=== PATIENT | female | born 1940 | race Caucasian/White ===

== ENCOUNTER 2017-05-26 20:39 | Outpatient (CLI) | payer MEDICARE, OTHER | END 2017-05-26 20:40 | disposition critical access hospital (66) | LOC: EMS 20:39 | PROVIDERS: ATTEND Surgery | DX: M25.551 Pain in right hip (principal); W18.30XA Fall on same level, unspecified, initial encounter; Y93.01 Activity, walking, marching and hiking; Y92.009 Unspecified place in unspecified non-institutional (private) residence as the place of occurrence of the external cause | CPT/HCPCS: A0425; A0429 ==

== ENCOUNTER 2017-05-26 20:45 | Inpatient (IN) | payer MEDICARE, OTHER ==
[2017-05-26 21:49] LABS: BASOPHILS % (AUTO) 0.4 %; EOSINOPHILS # (AUTO) 0.1 10^3/uL (0.0-0.7); EOSINOPHILS % (AUTO) 0.7 %; HCT - HEMATOCRIT 41.6 % (37.0-47.0); HGB - HEMOGLOBIN 13.1 g/dL (12.0-16.0); LYMPHOCYTES # (AUTO) 1.2 10^3/uL (1.5-3.5); MEAN CORPUSCULAR HGB CONC 31.5 g/dL (32.0-36.0); MEAN CORPUSCULAR VOLUME 88.9 fL (81.0-99.0); MEAN PLATELET VOLUME 7.7 fL (7.9-10.8); MONOCYTES # (AUTO) 0.7 10^3/uL (0.0-1.0); MONOCYTES % (AUTO) 6.3 %; NEUTROPHILS # (AUTO) 9.2 10^3/uL (1.5-6.6); NEUTROPHILS % (AUTO) 81.6 %; RED BLOOD COUNT 4.68 10^6/uL (4.20-5.40); UNCORRECTED WHITE BLOOD COUNT 11.3 x10^3/uL; WHITE BLOOD COUNT 11.3 x10^3/uL (4.8-10.8)
[2017-05-26 21:58] LABS: ALBUMIN/GLOBULIN RATIO 1.5 (1.0-2.2); BILIRUBIN,TOTAL 0.4 mg/dL (0.2-1.0); CALCIUM 9.7 mg/dL (8.5-10.3); CREATININE 0.9 mg/dL (0.4-1.0); POTASSIUM 3.7 mmol/L (3.5-5.0); TOTAL PROTEIN 6.7 g/dL (6.7-8.2)
--- NOTE | 2017-05-26 22:40 | XRAY Preliminary Report ---
Exam: XR Chest 2 View PA/LAT IMPRESSION: Probable chronic interstitial lung disease. No acute pulmonary process. [facility] SITE ID: [id number]
--- NOTE | 2017-05-26 22:45 | XRAY Preliminary Report ---
Exam: XR Hip w/Pelvis 2-3V RT IMPRESSION: 1. Acute subcapital right femoral neck fracture. 2. No dislocation. [facility] SITE ID: [id number]
--- NOTE | 2017-05-26 22:54 | XRAY Report ---
EXAM: CHEST RADIOGRAPHY EXAM DATE: 05/26/2017 10:26 PM. CLINICAL HISTORY: Hypoxia. COMPARISON: 05/31/2015. TECHNIQUE: 2 views. FINDINGS: Lungs/Pleura: Coarse interstitial prominence is noted in both lungs. No consolidation, effusions or p neumothorax. Bronchial wall thickening is present. Mediastinum: Atheromatous plaques are present in the ectatic thoracic aorta. Stable cardiac silhouett e. Other: Multiple chronic healed right-sided rib fractures. IMPRESSION: Probable chronic interstitial lung disease. No acute pulmonary process. [facility] Referring Provider Line: [phone] SITE ID: [id number]
--- NOTE | 2017-05-26 22:54 | XRAY Report ---
EXAM: RIGHT HIP AND PELVIS RADIOGRAPHY EXAM DATE: 05/26/2017 10:26 PM. HISTORY: Fall, right hip pain. COMPARISONS: None. TECHNIQUE: 1 view of the pelvis and 1 view of the hip. FINDINGS: Bones: Acute, mildly displaced subcapital right femoral neck fracture. Patient is osteopenic. Status post vertebral augmentation at L4. Joints: The bilateral hip, pubis symphysis, and sacroiliac joints are preserved. Soft Tissues: Normal. No soft tissue swelling. IMPRESSION: 1. Acute subcapital right femoral neck fracture. 2. No dislocation. [facility] Referring Provider Line: [phone] SITE ID: [id number]
[2017-05-26] MEDS ORDERED: fentaNYL 100 MCG/2 ML VIAL IVP STA (23:15)
[2017-05-26] MEDS ORDERED: fentaNYL 100 MCG/2 ML VIAL ONE (23:18)
--- NOTE | 2017-05-26 23:35 | ED Physician Documentation ---
PD HPI LOWER EXT INJURY - Stated complaint Stated Complaint: FALL/R HIP PAIN - Chief complaint Chief Complaint: Ext Problem - History obtained from History obtained from: Patient, EMS - History of Present Illness PD HPI LOW EXT INJURY LOCATION: Right, Upper leg Type of injury: Fall Where injury occurred: Home Timing - onset: How many hours ago (1) Timing - details: Abrupt onset Improved by: Immobilization Worsened by: Moving, Palpating Contributing factors: Prior ortho surgery Similar symptoms before: Has not had sx before Recently seen: Not recently seen - Additional information Additional information: Patient is a 76 year old female with a history of osteoporosis and suspected alcohol abuse who is presenting to the emergency department for right hip pain. Patient states that she came downstairs to picker her meals on wheels. Patient states that she proceeded to fall but did not trip on anything. patient states that she was down for possibly a half hour before being called by the neighbors. Patient complained of right sided hip pain but denied any other complaints. Review of Systems Constitutional: denies: Fever, Chills Eyes: denies: Decreased vision Ears: denies: Ear pain, Drainage/discharge Nose: denies: Rhinorrhea / runny nose, Congestion Throat: denies: Sore throat Cardiac: denies: Chest pain / pressure, Palpitations Respiratory: denies: Dyspnea, Cough, Wheezing GI: denies: Abdominal Pain, Nausea, Vomiting : denies: Dysuria, Frequency Skin: denies: Rash, Lesions, Abrasion (s), Laceration (s) Musculoskeletal: reports: Extremity pain, Joint pain Neurologic: reports: Generalized weakness, Confused. denies: Focal weakness, Syncope, Seizure, Head injury, LOC Immunocompromised: denies: Immunocompromised PD PAST MEDICAL HISTORY - Past Medical History Cardiovascular: None Respiratory: Shortness of breath Endocrine/Autoimmune: HyPOthyroidism GI: Hiatal hernia, Colon polyps : Incontinence, Frequency HEENT: Other Psych: Depression Musculoskeletal: Osteoarthritis, Fibromyalgia, Fatigue Derm: None - Past Surgical History General: Colonoscopy, EGD Ortho: Spine surgery HEENT: Tonsil/Adenoidectomy - Present Medications Home Medications: Ambulatory Orders Medication Instructions Recorded Confirmed Omeprazole [Prilosec] 20 mg PO BID 04/01/13 05/27/17 Thyroid [[place] Thyroid] 130 mg PO DAILY 04/01/13 05/27/17 Venlafaxine ER [Effexor ER] 75 mg PO BID 05/30/15 05/26/17 - Allergies Allergies/Adverse Reactions: Allergies Allergy/AdvReac Type Severity Reaction Status Date / Time Penicillins Allergy Unknown Unknown Verified 05/26/17 21:12 - Social History Does the pt smoke?: No Smoking Status: Never smoker Does the pt drink ETOH?: Yes Does the pt have substance abuse?: No - POLST Patient has POLST: No PD ED PE NORMAL - Vitals Vital signs reviewed: Yes - General General: Alert and oriented X 3 - HEENT HEENT: Atraumatic, PERRL - Neck Neck: Supple, no meningeal sign, No bony TTP - Cardiac Cardiac: RRR, No murmur - Respiratory Respiratory: No respiratory distress - Abdomen Abdomen: Soft, Non tender, Non distended - Derm Derm: Normal color, Warm and dry - Neuro Neuro: Alert and oriented X 3, Normal speech - Psych Psych: Normal mood, Normal affect PD ED PE EXPANDED - Extremities Extremities: Right wrist (scarring of right wrist), Right hip (tenderness and swelling of right hip) Results - Vitals Vitals: Vital Signs - 24 hr 05/26/17 05/26/17 05/27/17 22:47 23:20 00:03 Heart Rate 100 96 101 H Respiratory 17 18 17 Rate Blood Pressure 137/67 H 141/74 H 167/74 H O2 Saturation 96 95 95 Oxygen O2 Source Nasal cannula Oxygen Flow Rate 4 - Labs Labs: Laboratory Tests 05/26/17 05/26/17 05/26/17 21:30 21:30 21:30 WBC 11.3 H RBC 4.68 Hgb 13.1 Hct 41.6 MCV 88.9 MCH 28.0 MCHC 31.5 L RDW 17.0 H Plt Count 236 MPV 7.7 L Neut # 9.2 H Lymph # 1.2 L [place] # 0.7 Eos # 0.1 Baso # 0.0 Absolute Nucleated RBC 0.00 Nucleated RBCs 0.0 Sodium 137 Potassium 3.7 Chloride 104 Carbon Dioxide 19 L Anion Gap 14.0 H BUN 15 Creatinine 0.9 Estimated GFR (MDRD) 61 L Glucose 101 H Calcium 9.7 Total Bilirubin 0.4 AST 23 ALT 16 Alkaline Phosphatase 95 Troponin I < 0.04 B-Natriuretic Peptide Total Protein 6.7 Albumin 4.0 Globulin 2.7 Albumin/Globulin Ratio 1.5 Lipase 19 L Urine Color Urine Clarity Urine pH Ur Specific [place] Urine Protein Urine Glucose (UA) Urine Ketones Urine Occult Blood Urine Nitrite Urine Bilirubin Urine Urobilinogen Ur Leukocyte Esterase Urine RBC Urine WBC Ur Squamous Epith Cells Urine Bacteria Ur Microscopic Review Urine Culture Comments 05/26/17 05/26/17 21:30 23:39 WBC RBC Hgb Hct MCV MCH MCHC RDW Plt Count MPV Neut # Lymph # [place] # Eos # Baso # Absolute Nucleated RBC Nucleated RBCs Sodium Potassium Chloride Carbon Dioxide Anion Gap BUN Creatinine Estimated GFR (MDRD) Glucose Calcium Total Bilirubin AST ALT Alkaline Phosphatase Troponin I B-Natriuretic Peptide 22 Total Protein Albumin Globulin Albumin/Globulin Ratio Lipase Urine Color YELLOW Urine Clarity CLEAR Urine pH 5.5 Ur Specific [place] 1.010 Urine Protein NEGATIVE Urine Glucose (UA) NEGATIVE Urine Ketones NEGATIVE Urine Occult Blood NEGATIVE Urine Nitrite POSITIVE H Urine Bilirubin NEGATIVE Urine Urobilinogen 0.2 (NORMAL) Ur Leukocyte Esterase SMALL H Urine RBC 6-10 H Urine WBC >25 H Ur Squamous Epith Cells RARE Squamous Urine Bacteria Moderate H Ur Microscopic Review INDICATED Urine Culture Comments INDICATED - Rads (name of study) right hip Radiology: Final report received (femurel head fracture) PD MEDICAL DECISION MAKING - ED course Complexity details: reviewed old records, reviewed results, re-evaluated patient , considered differential, d/w patient, d/w event management consultant ED course: Patient was seen and examined at bedside. ekg was performed and showed sinus tach. labs were drawn and imaging was ordered. Patient was kept on supplemental oxygen due to her hypoxia. Patient's imaging was consistent with right hip fracture. Patient was treated with fentanyl and Dr. Barragan, covering orthopedist was contacted. He stated he would consult on the patient. Hospitalist was contacted and the case was discussed with him. Patient was admitted for further evaluation and care. Departure - Departure Disposition: [facility] DC/Xfer Clinical Impression: Hip fracture, right Condition: Stable
[2017-05-26] MEDS ORDERED: ONDANSETRON 4 MG/2 ML VIAL IVP PRN (23:40)
[2017-05-26] MEDS ORDERED: PROCHLORPERAZINE 10 MG/2 ML VIAL IVP PRN (23:40)
[2017-05-26] MEDS ORDERED: ZOLPIDEM 5 MG TABLET PO PRN (23:40)
[2017-05-26] MEDS ORDERED: HYDROcod/ACETAM 5/325 MG TABLET PO PRN (23:40)
[2017-05-26] MEDS ORDERED: ACETAMINOPHEN 325 MG TABLET PO PRN (23:40)
[2017-05-26] MEDS ORDERED: VENLAFAXINE ER 75 MG CAPSULE PO SCH (23:45)
[2017-05-26 23:51] LABS: BILIRUBIN,URINE NEGATIVE (NEGATIVE); PH,URINE 5.5 PH (5.0-7.5)
[2017-05-26 23:54] LABS: UA w/ MICROSCOPIC CHARGE YES
[2017-05-26 23:57] LABS: UR CULTURE IF IND INDICATED; WBC,URINE >25 /HPF (0-5)
[2017-05-27] MEDS ORDERED: ONDANSETRON 4 MG/2 ML VIAL IVP STA (00:08)
[2017-05-27] MEDS ORDERED: PANTOPRAZOLE 40 MG VIAL IVP STA (00:09)
[2017-05-27] MEDS ORDERED: LORazepam 2 MG/ML SYRINGE IVP PRN (01:53)
[2017-05-27] MEDS ORDERED: MAGNESIUM SULFATE 2 GRAM 50 ML IV ONE ×2 (01:53→03:44)
[2017-05-27] MEDS: SODIUM CHLORIDE 0.9% 1,000 ML IV SCH ×3 (01:58→21:41)
[2017-05-27] MEDS: SODIUM CHLORIDE FLUSH 0.9% 10 ML SYRINGE IVP PRN ×7 (01:59→21:41)
[2017-05-27] MEDS: MORPHINE 2 MG/ML SYRINGE IVP PRN ×4 (02:05→17:01)
[2017-05-27 02:35] LABS: BASOPHILS % (AUTO) 0.3 %; EOSINOPHILS % (AUTO) 0.4 %; HCT - HEMATOCRIT 41.3 % (37.0-47.0); HGB - HEMOGLOBIN 13.3 g/dL (12.0-16.0); LYMPHOCYTES # (AUTO) 0.8 10^3/uL (1.5-3.5); LYMPHOCYTES % (AUTO) 8.3 %; MEAN CORPUSCULAR HEMOGLOBIN 28.5 pg (27.0-31.0); MEAN CORPUSCULAR HGB CONC 32.3 g/dL (32.0-36.0); MEAN CORPUSCULAR VOLUME 88.3 fL (81.0-99.0); MEAN PLATELET VOLUME 7.6 fL (7.9-10.8); MONOCYTES # (AUTO) 0.7 10^3/uL (0.0-1.0); MONOCYTES % (AUTO) 7.4 %; NEUTROPHILS # (AUTO) 8.4 10^3/uL (1.5-6.6); NEUTROPHILS % (AUTO) 83.6 %; RED BLOOD COUNT 4.67 10^6/uL (4.20-5.40)
[2017-05-27 02:39] LABS: PT - PROTHROMBIN TIME 11.5 secs (9.9-12.6)
[2017-05-27 02:45] LABS: ALBUMIN/GLOBULIN RATIO 1.3 (1.0-2.2); BILIRUBIN,TOTAL 0.4 mg/dL (0.2-1.0); CALCIUM 9.2 mg/dL (8.5-10.3); CREATININE 0.7 mg/dL (0.4-1.0); MAGNESIUM 1.6 mg/dL (1.7-2.8); PHOSPHORUS 4.3 mg/dL (2.5-4.6); TOTAL PROTEIN 6.8 g/dL (6.7-8.2)
[2017-05-27] MEDS: HYDROcod/ACETAM 10 MG/325 MG TABLET PO PRN ×2 (02:47→12:42)
[2017-05-27] MEDS: VENLAFAXINE ER 75 MG CAPSULE PO SCH ×3 (02:48→21:04)
[2017-05-27] MEDS: cefTRIAXone 2 GM in SODIUM CHLORIDE 0.9% MINIBAG 100 ML IV SCH (03:55)
--- NOTE | 2017-05-27 05:11 | HISTORY & PHYSICAL EXAMINATION ---
Chief Complaint - Chief Complaint Chief Complaint: Right hip pain History of Present Illness - Admitted From Admitted From:: Emergency Department - History Obtained From Records Reviewed: Yes History obtained from: Patient Exam Limitations: Unable to move right leg secondary to pain - History of Present Illness HPI Comment/Other: Patient is a 76 year old female with a past medical history of alcohol abuse, chronic respiratory failure with hypoxia on 2L of home O2 but non compliant likely due to COPD, GERD, hypothyroidism, chronic fatigue syndrome, insomnia and IBS who presented to the ED with complaint of right hip pain after a fall. Patients states she lives alone in an apartment and was going down the stairs when she states she lost her balance and fell with all her weight onto her right side. She states she did not lose consciousness. She states she has poor balance and has fallen before. She has a cane at home but does not use it. She drinks daily had consumed some alcohol before her fall today. She states that after falling she could not get up and was in excruciating pain. She does state that she felt weak today but denies any fevers or chills. She denies any new cough or shortness of breath. She denies any chest pain. She denies any urinary symptoms. She does state she is nauseated in the ED and did vomit. She denies any abdominal pain. On presentation to the ED the patient was in obvious pain, she was tachycardic and hypertensive and her right leg was externally rotated and shortened. X ray of her right hip showed an acute subcapital right femoral next fracture. Orthopedics was called and they asked that the Hospitalist team admit the patient and that they would see her in consult in the morning. Review of Systems - Other Findings Other Findings: A comprehensive review of systems was performed and the pertinent positives and negatives are stated above in the HPI the remainder of the review of systems was negative. History - Past Medical History Cardiovascular: reports: None Respiratory: reports: Shortness of breath Endocrine/Autoimmune: reports: HyPOthyroidism GI: reports: Hiatal hernia, Colon polyps : reports: Incontinence, Frequency HEENT: reports: Other Psych: reports: Depression Musculoskeletal: reports: Osteoarthritis, Fibromyalgia, Fatigue Derm: reports: None MRSA Hx?: No Other Past Medical History: 1. GERD. 2. Hypothyroidism. 3. Alcohol Abuse. 4. COPD on 2L of home O2. 5. IBS. 6. Chronic Fatigue Syndrome - Past Surgical History General: reports: Colonoscopy, EGD Ortho: reports: Spine surgery HEENT: reports: Tonsil/Adenoidectomy - Family & Social History Family History: Mother: Alive and Well (Mom is 98 years old ), Father: (Dad: Lung cancer) Living arrangement: At home Living Situation: Alone Social History Notes: Patient lives alone in an apartment in [place]. Her daughter lives nearby but works in [place]. She is from [place] and moved here in 2004. She drinks daily and states she drinks about 1.5 L of Vodka in less than a week. She has 3 kids. She quit smoking in 1991 but smoked for about 30 years and smoked up to a pack per day. She denies any illict drug use. - Substance History Use: Uses substance without health or social issues: NONE Abuse: Recurrent use of substance despite neg consequences: NONE Dependence: Experiences withdrawal or developed tolerances: NONE - POLST Patient has POLST: No POLST Status: Full Code Meds/Allgy - Home Medications Home Medications: Ambulatory Orders Medication Instructions Recorded Confirmed Omeprazole [Prilosec] 20 mg PO BID 04/01/13 05/27/17 Thyroid [[place] Thyroid] 130 mg PO DAILY 04/01/13 05/27/17 Venlafaxine ER [Effexor ER] 75 mg PO BID 05/30/15 05/26/17 - Allergies Allergies/Adverse Reactions: Allergies Allergy/AdvReac Type Severity Reaction Status Date / Time Penicillins Allergy Unknown Unknown Verified 05/26/17 21:12 Exam - Vital Signs Reviewed Vital Signs: Yes Vital Signs: Vital Signs x48h Temp Pulse Pulse Resp BP BP Pulse Ox 05/27/17 01:55 37.1 C 107 H 20 146/72 H 93 05/27/17 00:03 101 H 17 167/74 H 95 - Physical Exam General Appearance: positive: Alert, Moderate distress (Pain the left hip), Other (Smells of alcohol) Eyes Bilateral: positive: Normal inspection, PERRL, EOMI, No lid inflammation, Conjunctivae nml, No scleral icterus ENT: positive: ENT inspection nml, Pharynx nml, Dry mucous membranes. negative : Purulent nasal drainage, Pharyngeal erythema, Oral lesions Neck: positive: Nml inspection, Thyroid nml, No JVD, Trachea midline. negative : Thyromegaly, Lymphadenopathy (R), Lymphadenopathy (L), Tracheal deviation Respiratory: positive: Chest non-tender, No respiratory distress, Other ( Diminished breath sounds bilaterally). negative: Wheezes, Rales, Rhonchi Cardiovascular: positive: No murmur, No gallop, Tachycardia Peripheral Pulses: positive: 2+ Abdomen: positive: Non-tender, No organomegaly, Nml bowel sounds, No distention. negative: Guarding, Rebound, Hepatomegaly Back: positive: Nml inspection. negative: CVA tenderness (R), CVA tenderness (L ) Skin: positive: Color nml, No rash, Warm, Dry. negative: Cyanosis, Pallor Extremities: positive: No pedal edema, Other (Right lower extremity externally rotated and shortened, with very limited ROM secondary to pain) Neurologic/Psychiatric: positive: Oriented x3, CN's nml (2-12), Motor nml, Sensation nml, Mood/affect nml Conclusion/Plan - Problem List (1) Subcapital fracture of right femur Conclusion/Plan: Secondary to fall likely due to poor balance and history of alcohol abuse Severe pain and decreased range of motion Xray shows subcapital right femoral neck fx RCRI calculator gives patient a 0.4% risk of major cardiac event during surgery She has no active chest pain or shortness of breath She does have COPD and is suppose to be on 2L of O2 will need have her optimized prior to surgery from respiratory standpoint with O2 and nebs. CXR is clear. Plan: Consult Ortho NPO after MN for right hip repair IVFs IV pain meds for pain control PT consult Start DVT prophylaxis post procedure (2) UTI (urinary tract infection) Conclusion/Plan: Patient had generalized weakness and mild leukocytosis but no fever or urinary symptoms UA positive for UTI this may have contributed to the fall Plan: IV ceftriaxone Await urine cx (3) Alcohol abuse Conclusion/Plan: Patient drinks daily according to her 1.5L of vodka a week but daughter thinks it maybe more She smelled of EtOH on presentation and did have a positive alcohol level on presentation Plan: counselled on risks of drinking and need to quit Place on IV MV, Folate, Thiamine and Mg CIWA protocol (4) GERD (gastroesophageal reflux disease) Conclusion/Plan: Patient has severe GERD and likely gastritis as she drinks and uses NSAIDs Does have abdominal pain and nausea when she does not take PPI Place on PPI while hospitalized Avoid NSAIDs (5) COPD (chronic obstructive pulmonary disease) Conclusion/Plan: Seems to be stable with no wheezing or cough CXR negative Suppose to be on 2L of O2 at home but has not been using Hypoxic on presentation Plan: Place on duonebs and optimize pre op status Will need to be extubated onto O2 post op Will need PFTs as outpatient (6) Prophylactic use of low molecular weight heparin for venous thromboembolism Conclusion/Plan: Place on Foot pumps until post op then switch to lovenox - Lab Results Lab results reviewed: Yes Fish Bones: 05/27/17 02:25 05/27/17 02:25 - Diagnostic Imaging Results Diagnostic Imaging Results: positive: Final report reviewed Diagnostic Imaging Results Comments: Hip Xray Right femoral neck hip fx CXR Chronic interstitial lung disease with no acute process. - EKG Results EKG Interpreted Independently: Yes Issues/Core Measures - Anticipated LOS Anticipated Stay Length: 2 or more midnights - DVT/VTE - Prophylaxis VTE/DVT Device ordered at admit?: Yes VTE/DVT Prophylaxis med ordered at admit?: Yes
[2017-05-27] MEDS: SODIUM CHLORIDE FLUSH 0.9% 10 ML SYRINGE IVP SCH ×3 (05:33→17:04)
[2017-05-27] MEDS: PANTOPRAZOLE 40 MG TABLET PO SCH (06:21)
--- NOTE | 2017-05-27 08:57 | PROVIDER PROGRESS NOTE ---
Assessment/Plan - Problem List (1) Subcapital fracture of right femur Assessment/Plan: acute. continue with ortho on consult for surgery in the morning. continue on NPO at midnight. will need rehab after surgery. continue to monitor for pain with fentanyl IV and tylenol for mild pain. zofran for nausea. Hubbard traction 8 pounds applied. pillow for support. (2) Alcohol dependence with physiological dependence, continuous Assessment/Plan: acute on chronic. continue on banana bag IV and monitor electrolytes daily with labs. continue on CIWA protocol with ativan as needed for withdrawal. (3) UTI (urinary tract infection) Qualifiers: Urinary tract infection type: site unspecified Hematuria presence: without hematuria Qualified Code(s): N39.0 - Urinary tract infection, site not specified Assessment/Plan: acute. continue on Rocephin IV and IVF for gentle hydration. urine culture pending for bacterial organism (4) COPD (chronic obstructive pulmonary disease) Qualifiers: COPD type: unspecified COPD Qualified Code(s): J44.9 - Chronic obstructive pulmonary disease, unspecified Assessment/Plan: STABLE AND chronic. continue on supplemental oxygen with RT support. continue at night since patient has possible sleep apnea (5) GERD (gastroesophageal reflux disease) Qualifiers: Esophagitis presence: without esophagitis Qualified Code(s): K21.9 - Gastro -esophageal reflux disease without esophagitis Assessment/Plan: chronic without esophagitis. continue on PPI - Current Meds Current Meds: Current Medications Generic Name Dose Route Start Last Admin Trade Name Freq PRN Reason Stop Dose Admin Acetaminophen/Hydrocodone Bitart 1 tab 05/26/17 23:40 05/27/17 02:47 [place] 10 Mg/325 Mg PO 1 tab Q4HR PRN Administration Pain 8 to 10 Sodium Chloride 1,000 mls @ 100 mls/hr 05/26/17 23:45 05/27/17 01:58 Normal Saline 0.9% IV 100 mls/hr .Q10H RAJEEV Administration Ceftriaxone Sodium 2 gm/ 100 mls @ 200 mls/hr 05/27/17 03:00 05/27/17 03:55 Sodium Chloride IV 200 mls/hr Q24H RAJEEV Administration Morphine Sulfate 2 mg 05/26/17 23:40 05/27/17 03:55 Morphine IVP 2 mg Q2HR PRN Administration Pain 8 to 10 Pantoprazole Sodium 40 mg 07/26/17 07:00 05/27/17 06:21 Protonix PO 40 mg QDAC RAJEEV Administration Sodium Chloride 10 ml 05/26/17 23:40 05/27/17 01:59 Normal Saline Flush 0.9% IVP 10 ml PRN PRN Administration NEEDED PER PROVIDER ORDERS Sodium Chloride 10 ml 05/27/17 06:00 05/27/17 05:33 Normal Saline Flush 0.9% IVP Not Given Q8HR RAJEEV Venlafaxine HCl 75 mg 05/27/17 03:00 05/27/17 02:48 Effexor Er PO 75 mg BID RAJEEV Administration - Lab Result Lab results reviewed: Yes Fish Bone Diagrams: 05/27/17 02:25 05/27/17 02:25 Other Lab Results: Abnormal Lab Results 05/26/17 05/26/17 05/26/17 21:30 21:30 23:39 WBC 11.3 x10^3/uL H x10^3/uL (4.8-10.8) MCHC 31.5 g/dL L g/dL (32.0-36.0) RDW 17.0 % H % (12.0-15.0) MPV 7.7 fL L fL (7.9-10.8) Neut # 9.2 10^3/uL H 10^3/uL (1.5-6.6) Lymph # 1.2 10^3/uL L 10^3/uL (1.5-3.5) Carbon Dioxide 19 mmol/L L mmol/L (21-32) Anion Gap 14.0 H (6-13) Estimated GFR (MDRD) 61 L (>89) Glucose 101 mg/dL H mg/dL (70-100) Magnesium Lipase 19 U/L L U/L (22-51) Urine Nitrite POSITIVE H (NEGATIVE) Ur Leukocyte Esterase SMALL H (NEGATIVE) Urine RBC 6-10 /HPF H /HPF (0-5) Urine WBC >25 /HPF H /HPF (0-5) Urine Bacteria Moderate /HPF H /HPF (None Seen) 05/27/17 05/27/17 02:25 02:25 WBC MCHC RDW 17.0 % H % (12.0-15.0) MPV 7.6 fL L fL (7.9-10.8) Neut # 8.4 10^3/uL H 10^3/uL (1.5-6.6) Lymph # 0.8 10^3/uL L 10^3/uL (1.5-3.5) Carbon Dioxide 20 mmol/L L mmol/L (21-32) Anion Gap Estimated GFR (MDRD) 82 L (>89) Glucose 103 mg/dL H mg/dL (70-100) Magnesium 1.6 mg/dL L mg/dL (1.7-2.8) Lipase Urine Nitrite Ur Leukocyte Esterase Urine RBC Urine WBC Urine Bacteria - EKG Results EKG Interpreted Independently: Yes EKG Comparison: Unchanged from prior EKG - Additional Planning Condition/Complexity: Stable Consult/Specialty: OT, PT, Surgery Plan Discussed with:: Patient, Family (daughter Yin would like to be called before surgery and number on board in room) Time Spent: 31-60 minutes (patient is going to need more than 2 night stay due to co morbid conditions. she is high risk with needing iV medications with risk for toxicity. additional diagnostics ordered.) Subjective - Subjective Patient Reports: Resting Comfortably, Nausea (occasional pain and nausea when taking pain meds), Pain Nursing Reports: No Complaints (occasional pain to hip with pain control) Objective Vital Signs: Vital Signs - 24 hr 05/27/17 05/27/17 05/27/17 00:03 01:55 06:22 Temperature 37.1 C 36.7 C Heart Rate 101 H Heart Rate [ 107 H 92 Brachial] Respiratory 17 20 18 Rate Blood Pressure 167/74 H Blood Pressure 157/74 H [Left Brachial artery] Blood Pressure 146/72 H [Right Brachial artery] O2 Saturation 95 93 94 Oxygen O2 Source Nasal cannula I&O (Last 24 Hrs): Intake and Output Totals x24h 05/25/17 05/26/17 05/27/17 23:59 23:59 23:59 Intake Total 425 Output Total 350 Balance 75 General: Alert, Oriented x3, Cooperative, No acute distress HEENT: PERRLA, EOMI Neck: Supple, No JVD, No thyromegaly Lymphatic: no adenopathy Neuro: Alert, Oriented Times 3 Cardiovascular: Regular rate, Normal S1, Normal S2 Respiratory: Chest non-tender, No respiratory distress, Breath sounds nml Abdomen: Soft, No tenderness, No hepatospenomegaly, No masses Genitourinary: No Bleeding, No Discharge Rectal: Stool - Heme NEG Extremities: No clubbing, No cyanosis, Normal pulses, No tenderness/swelling Skin: No rashes, No breakdown, No significant lesion - Results Results: Laboratory Results WBC 10.0 x10^3/uL (4.8-10.8) 05/27/17 02:25 RBC 4.67 10^6/uL (4.20-5.40) 05/27/17 02:25 Hgb 13.3 g/dL (12.0-16.0) 05/27/17 02:25 Hct 41.3 % (37.0-47.0) 05/27/17 02:25 MCV 88.3 fL (81.0-99.0) 05/27/17 02:25 MCH 28.5 pg (27.0-31.0) 05/27/17 02:25 MCHC 32.3 g/dL (32.0-36.0) 05/27/17 02:25 RDW 17.0 % (12.0-15.0) H 05/27/17 02:25 Plt Count 208 10^3/uL (130-450) 05/27/17 02:25 MPV 7.6 fL (7.9-10.8) L 05/27/17 02:25 Neut # 8.4 10^3/uL (1.5-6.6) H 05/27/17 02:25 Lymph # 0.8 10^3/uL (1.5-3.5) L 05/27/17 02:25 [place] # 0.7 10^3/uL (0.0-1.0) 05/27/17 02:25 Eos # 0.0 10^3/uL (0.0-0.7) 05/27/17 02:25 Baso # 0.0 10^3/uL (0.0-0.1) 05/27/17 02:25 Absolute Nucleated RBC 0.00 x10^3/uL 05/27/17 02:25 Nucleated RBCs 0.0 /100WBC 05/27/17 02:25 PT 11.5 secs (9.9-12.6) 05/27/17 02:25 INR 1.0 (0.8-1.2) 05/27/17 02:25 Sodium 138 mmol/L (135-145) 05/27/17 02:25 Potassium 4.0 mmol/L (3.5-5.0) 05/27/17 02:25 Chloride 105 mmol/L (101-111) 05/27/17 02:25 Carbon Dioxide 20 mmol/L (21-32) L 05/27/17 02:25 Anion Gap 13.0 (6-13) 05/27/17 02:25 BUN 15 mg/dL (6-20) 05/27/17 02:25 Creatinine 0.7 mg/dL (0.4-1.0) 05/27/17 02:25 Estimated GFR (MDRD) 82 (>89) L 05/27/17 02:25 Glucose 103 mg/dL (70-100) H 05/27/17 02:25 Calcium 9.2 mg/dL (8.5-10.3) 05/27/17 02:25 Phosphorus 4.3 mg/dL (2.5-4.6) 05/27/17 02:25 Magnesium 1.6 mg/dL (1.7-2.8) L 05/27/17 02:25 Total Bilirubin 0.4 mg/dL (0.2-1.0) 05/27/17 02:25 AST 22 IU/L (10-42) 05/27/17 02:25 ALT 16 IU/L (10-60) 05/27/17 02:25 Alkaline Phosphatase 97 IU/L (42-121) 05/27/17 02:25 Troponin I < 0.04 ng/mL (<0.49) 05/26/17 21:30 B-Natriuretic Peptide 22 pg/mL (5-100) 05/26/17 21:30 Total Protein 6.8 g/dL (6.7-8.2) 05/27/17 02:25 Albumin 3.9 g/dL (3.2-5.5) 05/27/17 02:25 Globulin 2.9 g/dL (2.1-4.2) 05/27/17 02:25 Albumin/Globulin Ratio 1.3 (1.0-2.2) 05/27/17 02:25 Lipase 19 U/L (22-51) L 05/26/17 21:30 TSH 0.76 uIU/mL (0.34-5.60) 05/27/17 02:25 Urine Color YELLOW 05/26/17 23:39 Urine Clarity CLEAR (CLEAR) 05/26/17 23:39 Urine pH 5.5 PH (5.0-7.5) 05/26/17 23:39 Ur Specific [place] 1.010 (1.002-1.030) 05/26/17 23:39 Urine Protein NEGATIVE mg/dL (NEGATIVE) 05/26/17 23:39 Urine Glucose (UA) NEGATIVE mg/dL (NEGATIVE) 05/26/17 23:39 Urine Ketones NEGATIVE mg/dL (NEGATIVE) 05/26/17 23:39 Urine Occult Blood NEGATIVE (NEGATIVE) 05/26/17 23:39 Urine Nitrite POSITIVE (NEGATIVE) H 05/26/17 23:39 Urine Bilirubin NEGATIVE (NEGATIVE) 05/26/17 23:39 Urine Urobilinogen 0.2 (NORMAL) E.U./dL (NORMAL) 05/26/17 23:39 Ur Leukocyte Esterase SMALL (NEGATIVE) H 05/26/17 23:39 Urine RBC 6-10 /HPF (0-5) H 05/26/17 23:39 Urine WBC >25 /HPF (0-5) H 05/26/17 23:39 Ur Squamous Epith Cells RARE Squamous (<= Few) 05/26/17 23:39 Urine Bacteria Moderate /HPF (None Seen) H 05/26/17 23:39 Ur Microscopic Review INDICATED 05/26/17 23:39 Urine Culture Comments INDICATED 05/26/17 23:39 Ethyl Alcohol 68.9 mg/dL 05/27/17 02:25 - Procedures Procedures: Procedures OP RED-INT FIX RAD/ULNA (05/31/15)
[2017-05-27] MEDS ORDERED: THYROID 60 MG TABLET PO SCH (09:30)
[2017-05-27] MEDS ORDERED: diazePAM INJ 5 MG/ML SYRINGE IVP SCH ×2 (10:00→21:00)
[2017-05-27] MEDS: POLYETHYLENE GLYCOL 3350 17 GM PACKET PO SCH (10:15)
[2017-05-27] MEDS: MULTIVITAMIN 10 ML, THIAMINE INJ 100 MG, FOLIC ACID INJ 1 MG in SODIUM CHLORIDE 0.9% 1,... IV SCH (10:38)
[2017-05-27] MEDS: fentaNYL 100 MCG/2 ML VIAL IVP PRN ×2 (18:42→22:20)
[2017-05-28] MEDS: HYDROcod/ACETAM 10 MG/325 MG TABLET PO PRN ×2 (00:23→16:54)
[2017-05-28] MEDS: MORPHINE 2 MG/ML SYRINGE IVP PRN ×3 (02:48→23:57)
[2017-05-28] MEDS: cefTRIAXone 2 GM in SODIUM CHLORIDE 0.9% MINIBAG 100 ML IV SCH (02:48)
[2017-05-28] MEDS: SODIUM CHLORIDE FLUSH 0.9% 10 ML SYRINGE IVP SCH ×3 (05:59→19:29)
[2017-05-28] MEDS: LEVOTHYROXINE 25 MCG TABLET PO SCH (06:12)
[2017-05-28] MEDS: LEVOTHYROXINE 112 MCG TABLET PO SCH (06:12)
[2017-05-28] MEDS: PANTOPRAZOLE 40 MG TABLET PO SCH (06:12)
[2017-05-28 06:24] LABS: BASOPHILS % (AUTO) 0.5 %; EOSINOPHILS # (AUTO) 0.3 10^3/uL (0.0-0.7); EOSINOPHILS % (AUTO) 3.7 %; HGB - HEMOGLOBIN 11.6 g/dL (12.0-16.0); LYMPHOCYTES # (AUTO) 0.7 10^3/uL (1.5-3.5); LYMPHOCYTES % (AUTO) 9.7 %; MEAN CORPUSCULAR HEMOGLOBIN 28.8 pg (27.0-31.0); MEAN CORPUSCULAR HGB CONC 32.2 g/dL (32.0-36.0); MEAN CORPUSCULAR VOLUME 89.5 fL (81.0-99.0); MEAN PLATELET VOLUME 7.9 fL (7.9-10.8); MONOCYTES # (AUTO) 0.5 10^3/uL (0.0-1.0); MONOCYTES % (AUTO) 7.8 %; NEUTROPHILS # (AUTO) 5.5 10^3/uL (1.5-6.6); NEUTROPHILS % (AUTO) 78.3 %; RED BLOOD COUNT 4.03 10^6/uL (4.20-5.40); RED CELL DISTRIBUTION WIDTH 16.8 % (12.0-15.0)
[2017-05-28 06:29] LABS: ALBUMIN/GLOBULIN RATIO 1.4 (1.0-2.2); BILIRUBIN,TOTAL 0.6 mg/dL (0.2-1.0); CALCIUM 7.6 mg/dL (8.5-10.3); CREATININE 0.8 mg/dL (0.4-1.0); MAGNESIUM 1.8 mg/dL (1.7-2.8); PHOSPHORUS 2.5 mg/dL (2.5-4.6); POTASSIUM 4.4 mmol/L (3.5-5.0); TOTAL PROTEIN 5.9 g/dL (6.7-8.2)
[2017-05-28] MEDS ORDERED: ceFAZolin 1 GM VIAL IV ONE (08:00)
[2017-05-28] MEDS ORDERED: fentaNYL 100 MCG/2 ML VIAL IVP ONE (08:00)
[2017-05-28] MEDS ORDERED: PHENYLEPHRINE 10 MG/ML VIAL IV ONE (08:00)
[2017-05-28] MEDS ORDERED: PROPOFOL 200 MG/20 ML VIAL IVP ONE (08:00)
[2017-05-28] MEDS ORDERED: MIDAZOLAM 2 MG/2 ML VIAL IVP ONE (08:00)
[2017-05-28] MEDS: IPRATROPIUM/ALBUTEROL 3 ML NEB INH PRN ×3 (08:00→19:45)
[2017-05-28] MEDS ORDERED: TRANEXAMIC ACID 1,000 MG/10 ML VIAL IV ONE (08:00)
[2017-05-28] MEDS ORDERED: MORPHINE PF 5 MG/10 ML AMP EP ONE (08:00)
--- NOTE | 2017-05-28 08:01 | PROVIDER PROGRESS NOTE ---
Assessment/Plan - Problem List (1) Subcapital fracture of right femur Assessment/Plan: Acute. patient will be going to surgery today with Dr Barragan for fracture of the femur. She has stable H/H at this time.She is in bucks traction. pain controlled with IV fentanyl and valium for muscle spasms. She has been given IVF for gentle hydration. PT and OT to assist with ambulation (2) Alcohol dependence with physiological dependence, continuous Assessment/Plan: acute on chronic. patients blood alcohol was 68.9 at admission. she will need counseling for cessation. This contributed to the fall and fracture of the hip. continue on CIWA ptotocol for withdrawal. monitor INR. (3) UTI (urinary tract infection) Qualifiers: Urinary tract infection type: site unspecified Hematuria presence: without hematuria Qualified Code(s): N39.0 - Urinary tract infection, site not specified Assessment/Plan: acute. continue to monitor output and white blood count. continue on antibiotic therapy and probiotics. tylenol for fever. continue with oakley till after surgery (4) COPD (chronic obstructive pulmonary disease) Qualifiers: COPD type: unspecified COPD Qualified Code(s): J44.9 - Chronic obstructive pulmonary disease, unspecified (5) GERD (gastroesophageal reflux disease) Qualifiers: Esophagitis presence: without esophagitis Qualified Code(s): K21.9 - Gastro -esophageal reflux disease without esophagitis Assessment/Plan: chronic. continue with PPI and probiotics - Current Meds Current Meds: Current Medications Generic Name Dose Route Start Last Admin Trade Name Freq PRN Reason Stop Dose Admin Acetaminophen/Hydrocodone Bitart 1 tab 05/26/17 23:40 05/28/17 00:23 [place] 10 Mg/325 Mg PO 1 tab Q4HR PRN Administration Pain 8 to 10 Fentanyl 25 mcg 05/27/17 09:20 05/27/17 22:20 Fentanyl IVP 25 mcg Q2HR PRN Administration PAIN Sodium Chloride 1,000 mls @ 100 mls/hr 05/26/17 23:45 05/27/17 21:41 Normal Saline 0.9% IV 100 mls/hr .Q10H RAJEEV Administration Multivitamins 10 ml/ Thiamine 1,011.2 mls @ 100 mls/hr 05/27/17 09:00 05/27/17 10:38 HCl 100 mg/ Folic Acid 1 mg/ IV 100 mls/hr Sodium Chloride DAILY RAJEEV Administration Ceftriaxone Sodium 2 gm/ 100 mls @ 200 mls/hr 05/27/17 03:00 05/28/17 02:48 Sodium Chloride IV 200 mls/hr Q24H RAJEEV Administration Levothyroxine Sodium 112 mcg 05/28/17 07:00 05/28/17 06:12 Synthroid PO 112 mcg QDAC RAJEEV Administration Levothyroxine Sodium 25 mcg 05/28/17 07:00 05/28/17 06:12 Synthroid PO 25 mcg QDAC RAJEEV Administration Morphine Sulfate 2 mg 05/26/17 23:40 05/28/17 06:14 Morphine IVP 2 mg Q2HR PRN Administration Pain 8 to 10 Pantoprazole Sodium 40 mg 05/27/17 07:00 05/28/17 06:12 Protonix PO 40 mg QDAC RAJEEV Administration Polyethylene Glycol 17 gm 05/27/17 09:00 05/27/17 10:15 Miralax PO Not Given DAILY RAJEEV Sodium Chloride 10 ml 05/26/17 23:40 05/27/17 21:41 Normal Saline Flush 0.9% IVP 10 ml PRN PRN Administration NEEDED PER PROVIDER ORDERS Sodium Chloride 10 ml 05/27/17 06:00 05/28/17 05:59 Normal Saline Flush 0.9% IVP Not Given Q8HR RAJEEV Venlafaxine HCl 75 mg 05/27/17 03:00 05/27/17 21:04 Effexor Er PO 75 mg BID RAJEEV Administration - Lab Result Lab results reviewed: Yes Fish Bone Diagrams: 05/28/17 05:45 05/28/17 05:45 Other Lab Results: Abnormal Lab Results 05/26/17 05/26/17 05/26/17 21:30 21:30 23:39 WBC 11.3 x10^3/uL H x10^3/uL (4.8-10.8) RBC Hgb Hct MCHC 31.5 g/dL L g/dL (32.0-36.0) RDW 17.0 % H % (12.0-15.0) MPV 7.7 fL L fL (7.9-10.8) Neut # 9.2 10^3/uL H 10^3/uL (1.5-6.6) Lymph # 1.2 10^3/uL L 10^3/uL (1.5-3.5) Carbon Dioxide 19 mmol/L L mmol/L (21-32) Anion Gap 14.0 H (6-13) Estimated GFR (MDRD) 61 L (>89) Glucose 101 mg/dL H mg/dL (70-100) Calcium Magnesium Total Protein Lipase 19 U/L L U/L (22-51) Urine Nitrite POSITIVE H (NEGATIVE) Ur Leukocyte Esterase SMALL H (NEGATIVE) Urine RBC 6-10 /HPF H /HPF (0-5) Urine WBC >25 /HPF H /HPF (0-5) Urine Bacteria Moderate /HPF H /HPF (None Seen) 05/27/17 05/27/17 05/28/17 02:25 02:25 05:45 WBC RBC 4.03 10^6/uL L 10^6/uL (4.20-5.40) Hgb 11.6 g/dL L g/dL (12.0-16.0) Hct 36.0 % L % (37.0-47.0) MCHC RDW 17.0 % H % 16.8 % H % (12.0-15.0) (12.0-15.0) MPV 7.6 fL L fL (7.9-10.8) Neut # 8.4 10^3/uL H 10^3/uL (1.5-6.6) Lymph # 0.8 10^3/uL L 10^3/uL 0.7 10^3/uL L 10^3/uL (1.5-3.5) (1.5-3.5) Carbon Dioxide 20 mmol/L L mmol/L (21-32) Anion Gap Estimated GFR (MDRD) 82 L (>89) Glucose 103 mg/dL H mg/dL (70-100) Calcium Magnesium 1.6 mg/dL L mg/dL (1.7-2.8) Total Protein Lipase Urine Nitrite Ur Leukocyte Esterase Urine RBC Urine WBC Urine Bacteria 05/28/17 05:45 WBC RBC Hgb Hct MCHC RDW MPV Neut # Lymph # Carbon Dioxide Anion Gap Estimated GFR (MDRD) 70 L (>89) Glucose 118 mg/dL H mg/dL (70-100) Calcium 7.6 mg/dL L mg/dL (8.5-10.3) Magnesium Total Protein 5.9 g/dL L g/dL (6.7-8.2) Lipase Urine Nitrite Ur Leukocyte Esterase Urine RBC Urine WBC Urine Bacteria - EKG Results EKG Interpreted Independently: No - Additional Planning Condition/Complexity: Stable My Orders: My Active Orders 05/27/17 09:20 fentaNYL 25 mcg IVP Q2HR PRN 05/27/17 09:21 CIWA-Ar Score Assessment (IV) [RC] ONCE 05/27/17 15:32 Bishop's Traction [Orthopedic Equipment] [RC] CONT 05/28/17 00:01 NPO except Meds at Midnight [DIET] 05/28/17 07:00 Levothyroxine [Synthroid] 112 mcg PO QDAC Levothyroxine [Synthroid] 25 mcg PO QDAC Consult/Specialty: OT, PT, Surgery Plan Discussed with:: Patient, Family Time Spent: 31-60 minutes Additional Planning Notes: Patient went to surgery today for a closed fracture of the femur on the right side. Dr Barragan is the orthopedist. She will need additional stays 48 hours plus and needs PT and OT after surgery Subjective - Subjective Patient Reports: Resting Comfortably, Pain Nursing Reports: Pain (pain to right hip and leg.) Objective Vital Signs: Vital Signs - 24 hr 05/27/17 05/27/17 05/27/17 09:52 10:00 14:00 Temperature 36.6 C 36.6 C Heart Rate 92 Heart Rate [ 92 100 Brachial] Respiratory 16 16 16 Rate Blood Pressure 152/75 H 158/66 H [Left Brachial artery] O2 Saturation 92 93 05/27/17 05/27/17 05/28/17 16:21 19:15 00:00 Temperature 36.6 C 36.8 C Heart Rate 94 Heart Rate [ 92 95 Brachial] Respiratory 16 16 20 Rate Blood Pressure 151/87 H 156/81 H [Left Brachial artery] O2 Saturation 92 91 L Oxygen O2 Source Nasal cannula I&O (Last 24 Hrs): Intake and Output Totals x24h 05/26/17 05/27/17 05/28/17 23:59 23:59 23:59 Intake Total 1552 900 Output Total 700 200 Balance 852 700 General: Alert, Oriented x3, Cooperative HEENT: Atraumatic, PERRLA Neck: Supple, No JVD, No thyromegaly Lymphatic: no adenopathy Neuro: Alert, Disoriented, CN 2-12 Grossly Intact, Oriented Times 3 Cardiovascular: Regular rate, Normal S1, Normal S2 Respiratory: Chest non-tender, No respiratory distress, Breath sounds nml Abdomen: Normal bowel sounds Genitourinary: No Discharge Extremities: No clubbing, No cyanosis, Normal pulses, No tenderness/swelling, Other (pain to right) Skin: No rashes, No breakdown (pain to right hip with movement and palpation) - Results Results: Laboratory Results WBC 7.0 x10^3/uL (4.8-10.8) 05/28/17 05:45 RBC 4.03 10^6/uL (4.20-5.40) L 05/28/17 05:45 Hgb 11.6 g/dL (12.0-16.0) L 05/28/17 05:45 Hct 36.0 % (37.0-47.0) L 05/28/17 05:45 MCV 89.5 fL (81.0-99.0) 05/28/17 05:45 MCH 28.8 pg (27.0-31.0) 05/28/17 05:45 MCHC 32.2 g/dL (32.0-36.0) 05/28/17 05:45 RDW 16.8 % (12.0-15.0) H 05/28/17 05:45 Plt Count 152 10^3/uL (130-450) 05/28/17 05:45 MPV 7.9 fL (7.9-10.8) 05/28/17 05:45 Neut # 5.5 10^3/uL (1.5-6.6) 05/28/17 05:45 Lymph # 0.7 10^3/uL (1.5-3.5) L 05/28/17 05:45 Delta # 0.5 10^3/uL (0.0-1.0) 05/28/17 05:45 Eos # 0.3 10^3/uL (0.0-0.7) 05/28/17 05:45 Baso # 0.0 10^3/uL (0.0-0.1) 05/28/17 05:45 Absolute Nucleated RBC 0.00 x10^3/uL 05/28/17 05:45 Nucleated RBCs 0.0 /100WBC 05/28/17 05:45 PT 11.5 secs (9.9-12.6) 05/27/17 02:25 INR 1.0 (0.8-1.2) 05/27/17 02:25 Sodium 138 mmol/L (135-145) 05/28/17 05:45 Potassium 4.4 mmol/L (3.5-5.0) 05/28/17 05:45 Chloride 107 mmol/L (101-111) 05/28/17 05:45 Carbon Dioxide 24 mmol/L (21-32) 05/28/17 05:45 Anion Gap 7.0 (6-13) 05/28/17 05:45 BUN 17 mg/dL (6-20) 05/28/17 05:45 Creatinine 0.8 mg/dL (0.4-1.0) 05/28/17 05:45 Estimated GFR (MDRD) 70 (>89) L 05/28/17 05:45 Glucose 118 mg/dL (70-100) H 05/28/17 05:45 Calcium 7.6 mg/dL (8.5-10.3) L 05/28/17 05:45 Phosphorus 2.5 mg/dL (2.5-4.6) 05/28/17 05:45 Magnesium 1.8 mg/dL (1.7-2.8) 05/28/17 05:45 Total Bilirubin 0.6 mg/dL (0.2-1.0) 05/28/17 05:45 AST 17 IU/L (10-42) 05/28/17 05:45 ALT 11 IU/L (10-60) 05/28/17 05:45 Alkaline Phosphatase 83 IU/L (42-121) 05/28/17 05:45 Troponin I < 0.04 ng/mL (<0.49) 05/26/17 21:30 B-Natriuretic Peptide 22 pg/mL (5-100) 05/26/17 21:30 Total Protein 5.9 g/dL (6.7-8.2) L 05/28/17 05:45 Albumin 3.4 g/dL (3.2-5.5) 05/28/17 05:45 Globulin 2.5 g/dL (2.1-4.2) 05/28/17 05:45 Albumin/Globulin Ratio 1.4 (1.0-2.2) 05/28/17 05:45 Lipase 19 U/L (22-51) L 05/26/17 21:30 TSH 0.76 uIU/mL (0.34-5.60) 05/27/17 02:25 Urine Color YELLOW 05/26/17 23:39 Urine Clarity CLEAR (CLEAR) 05/26/17 23:39 Urine pH 5.5 PH (5.0-7.5) 05/26/17 23:39 Ur Specific [place] 1.010 (1.002-1.030) 05/26/17 23:39 Urine Protein NEGATIVE mg/dL (NEGATIVE) 05/26/17 23:39 Urine Glucose (UA) NEGATIVE mg/dL (NEGATIVE) 05/26/17 23:39 Urine Ketones NEGATIVE mg/dL (NEGATIVE) 05/26/17 23:39 Urine Occult Blood NEGATIVE (NEGATIVE) 05/26/17 23:39 Urine Nitrite POSITIVE (NEGATIVE) H 05/26/17 23:39 Urine Bilirubin NEGATIVE (NEGATIVE) 05/26/17 23:39 Urine Urobilinogen 0.2 (NORMAL) E.U./dL (NORMAL) 05/26/17 23:39 Ur Leukocyte Esterase SMALL (NEGATIVE) H 05/26/17 23:39 Urine RBC 6-10 /HPF (0-5) H 05/26/17 23:39 Urine WBC >25 /HPF (0-5) H 05/26/17 23:39 Ur Squamous Epith Cells RARE Squamous (<= Few) 05/26/17 23:39 Urine Bacteria Moderate /HPF (None Seen) H 05/26/17 23:39 Ur Microscopic Review INDICATED 05/26/17 23:39 Urine Culture Comments INDICATED 05/26/17 23:39 Ethyl Alcohol 68.9 mg/dL 05/27/17 02:25 - Procedures Procedures: Procedures OP RED-INT FIX RAD/ULNA (05/31/15)
[2017-05-28] MEDS ORDERED: MAGNESIUM SULFATE 2 GRAM 50 ML IV ONE (08:13)
[2017-05-28] MEDS ORDERED: SODIUM CHLORIDE 0.9% 1,000 ML IV ONE ×2 (08:30→10:03)
[2017-05-28] MEDS ORDERED: BUPIVACAINE 0.5%-EPI 1:200000 PF 30 ML VIAL SUBQ ONE ×2 (09:31→11:11)
[2017-05-28] MEDS ORDERED: KETOROLAC 30 MG/ML VIAL IVP ONE ×2 (09:31→10:39)
[2017-05-28] MEDS ORDERED: MORPHINE PF 5 MG/10 ML AMP SUBQ ONE ×2 (09:32→10:39)
[2017-05-28] MEDS ORDERED: ROPIVACAINE 0.2% PF 20 ML AMPULE SUBQ ONE ×2 (09:32→10:39)
[2017-05-28] MEDS ORDERED: EPINEPHrine 1 MG/ML AMP IVP ONE ×2 (09:33→10:39)
[2017-05-28] MEDS ORDERED: BISACODYL 5 MG TABLET PO PRN (11:40)
[2017-05-28] MEDS ORDERED: DOCUSATE SODIUM 100 MG CAPSULE PO PRN (11:40)
[2017-05-28] MEDS ORDERED: ONDANSETRON 4 MG/2 ML VIAL IVP PRN (11:40)
[2017-05-28] MEDS ORDERED: diphenhydrAMINE 25 MG CAPSULE PO PRN (11:40)
[2017-05-28] MEDS ORDERED: SENNA 8.6 MG TABLET PO PRN (11:40)
[2017-05-28] MEDS ORDERED: BISACODYL 10 MG SUPP PR PRN (11:40)
[2017-05-28] MEDS ORDERED: PROCHLORPERAZINE 10 MG/2 ML VIAL IVP PRN (11:40)
[2017-05-28] MEDS ORDERED: diphenhydrAMINE INJ 50 MG/ML VIAL IVP PRN (11:40)
[2017-05-28] MEDS ORDERED: ACETAMINOPHEN 1,000 MG/100 ML 100 ML IV PRN (11:40)
[2017-05-28] MEDS ORDERED: ALBUTEROL NEB 2.5 MG/3 ML INH ONE (11:45)
[2017-05-28] MEDS ORDERED: IPRATROPIUM 0.2 MG/ML NEB INH ONE (11:45)
--- NOTE | 2017-05-28 11:53 | OPERATIVE REPORT ---
Operative Report - General Admit Date: 05/26/17 Procedure Date: 05/28/17 Planned Procedure: Right Hip Hemiarthroplasty Pre-Op Diagnosis: Right Femoral Neck Fracture Garden IV Post Op Diagnosis: Same - Procedure Note Primary Surgeon: Yung Sewell MD Anesthesia Provider: Cyn Rojas CRNA Anesthesia Technique: Local, MAC, Spinal Estimated Blood Loss (in cc): 300 Complications: None. - Other Other Information/Narrative: Fluids: 1700 mL LR Urine: 75 mL Implants: Biomet RingLoc Bi-Polar Acetabular Cup Modular Head Component, 28 mm OD x -3 mm Neck Taperloc Primary Femoral Stem, Porous coated, [id number] mm, Standard Offset. [place] SOft [place], 2.9 mm Condition: Stable Disposition: PACU >> MedSur
[2017-05-28] MEDS ORDERED: D5.45NS W/20 MEQ KCL 1,000 ML IV SCH (12:00)
--- NOTE | 2017-05-28 12:35 | XRAY Report ---
FRONTAL CHEST: 05/28/2017 CLINICAL INDICATION: Hypoxia. COMPARISON: 05/26/2017 FINDINGS: Frontal view of the chest demonstrates a normal cardiac silhouette. Interstitial opacitie s are stable. Old, healed rib fractures are stable. No new consolidation, effusion, or pneumothorax is present. IMPRESSION: STABLE INTERSTITIAL LUNG DISEASE. NO EVIDENCE OF ACUTE CARDIOPULMONARY DISEASE. JOB #: [id number] EXT JOB #:[id number]
[2017-05-28] MEDS: SODIUM CHLORIDE 0.9% 1,000 ML IV SCH ×2 (14:26→19:29)
[2017-05-28] MEDS: ENOXAPARIN 40 MG/0.4 ML SYRINGE SUBQ SCH (14:26)
[2017-05-28] MEDS: MULTIVITAMIN 10 ML, THIAMINE INJ 100 MG, FOLIC ACID INJ 1 MG in SODIUM CHLORIDE 0.9% 1,... IV SCH (14:27)
[2017-05-28] MEDS: VENLAFAXINE ER 75 MG CAPSULE PO SCH ×2 (14:27→23:30)
[2017-05-28] MEDS: POLYETHYLENE GLYCOL 3350 17 GM PACKET PO SCH (14:27)
[2017-05-28] MEDS: ceFAZolin 2 GM/50 ML 50 ML IV SCH ×2 (15:04→19:53)
[2017-05-28] MEDS ORDERED: MAGNESIUM SULFATE 2 GRAM 50 ML IV SCH (16:00)
[2017-05-28] MEDS ORDERED: CYANOCOBALAMIN 1,000 MCG/ML VIAL IM ONE (17:05)
[2017-05-28] MEDS: HYDROmorphone 1 MG/ML SYRINGE IVP PRN (19:29)
[2017-05-28] MEDS ORDERED: SODIUM CHLORIDE FLUSH 0.9% 10 ML SYRINGE IVP ONE (23:06)
[2017-05-28 23:09] LABS: VBG OXYGEN SATURATION 95.1 % (60-80); VBG PH 7.303 (7.31-7.41); VBG TOTAL CO2 19.9 mmol/L (24-29)
[2017-05-28 23:11] LABS: BASOPHILS % (AUTO) 0.3 %; EOSINOPHILS # (AUTO) 0.3 10^3/uL (0.0-0.7); EOSINOPHILS % (AUTO) 3.4 %; HCT - HEMATOCRIT 32.7 % (37.0-47.0); HGB - HEMOGLOBIN 10.3 g/dL (12.0-16.0); LYMPHOCYTES # (AUTO) 0.5 10^3/uL (1.5-3.5); LYMPHOCYTES % (AUTO) 6.6 %; MEAN CORPUSCULAR HEMOGLOBIN 28.6 pg (27.0-31.0); MEAN CORPUSCULAR HGB CONC 31.5 g/dL (32.0-36.0); MEAN CORPUSCULAR VOLUME 90.8 fL (81.0-99.0); MEAN PLATELET VOLUME 8.3 fL (7.9-10.8); MONOCYTES # (AUTO) 0.7 10^3/uL (0.0-1.0); MONOCYTES % (AUTO) 9.1 %; NEUTROPHILS # (AUTO) 6.5 10^3/uL (1.5-6.6); NEUTROPHILS % (AUTO) 80.6 %; RED CELL DISTRIBUTION WIDTH 17.1 % (12.0-15.0)
[2017-05-28 23:21] LABS: MAGNESIUM 2.5 mg/dL (1.7-2.8); PHOSPHORUS 3.3 mg/dL (2.5-4.6)
[2017-05-28 23:22] LABS: ALBUMIN/GLOBULIN RATIO 1.2 (1.0-2.2); BILIRUBIN,TOTAL 0.5 mg/dL (0.2-1.0); BUN - BLOOD UREA NITROGEN 19 mg/dL (6-20); CALCIUM 7.4 mg/dL (8.5-10.3); CARBON DIOXIDE - CO2 19 mmol/L (21-32); CHLORIDE 108 mmol/L (101-111); CREATININE 1.2 mg/dL (0.4-1.0); GFR - MDRD 44 (>89); GLUCOSE 156 mg/dL (70-100); POTASSIUM 4.3 mmol/L (3.5-5.0); SODIUM 136 mmol/L (135-145)
[2017-05-28 23:32] LABS: CALCIUM, IONIZED 1.05 mmol/L (1.15-1.33); VBG PH 7.27 (7.31-7.41)
[2017-05-28] MEDS: CHOLECALCIFEROL 5,000 UNIT CAPSULE PO SCH (23:47)
[2017-05-29] MEDS: IPRATROPIUM/ALBUTEROL 3 ML NEB INH PRN ×4 (01:00→18:25)
[2017-05-29] MEDS: HYDROcod/ACETAM 10 MG/325 MG TABLET PO PRN ×3 (01:22→17:50)
[2017-05-29] MEDS: HYDROmorphone 1 MG/ML SYRINGE IVP PRN ×5 (01:30→21:11)
[2017-05-29] MEDS ORDERED: IOPAMIDOL-300 100 ML VIAL IVP ONE (02:31)
--- NOTE | 2017-05-29 03:17 | CT Preliminary Report ---
Exam: CT Chest Angio (PE) IMPRESSION: 1. No pulmonary emboli seen. 2. Prominent central pulmonary arteries which may represent pulmonary arterial hypertension. 3. Emphysema with possible interstitial edema. 4. Bibasilar atelectasis or infiltrate and small left pleural effusion. 5. Fluid in the esophagus suggesting gastroesophageal reflux. [facility] SITE ID: [id number]
--- NOTE | 2017-05-29 03:19 | CT Report ---
EXAM: CT ANGIOGRAM CHEST EXAM DATE: 05/29/2017 02:35 AM. CLINICAL HISTORY: Hypoxia, tachycardia post op for repair of hip fx. COMPARISON: None. TECHNIQUE: Routine helical imaging was performed through the chest in the pulmonary arterial phase. I V Contrast: Nonionic. Reconstructions: Coronal 3-D MIP reconstructions.Sagittal and coronal. In accordance with CT protocol optimization, one or more of the following dose reduction techniques w ere utilized for this exam: automated exposure control, adjustment of mA and/or KV based on patient s ize, or use of iterative reconstructive technique. FINDINGS: Pulmonary Arteries: Diagnostic quality: Adequate through the segmental arteries. No evidence for acute or chronic pulmona ry emboli. No evidence of right heart strain. Central pulmonary arteries are prominent which could represent vahid vated pulmonary artery pressure. Lungs/Pleura: Emphysema. Bibasilar atelectasis or infiltrate. Small left pleural effusion. Possible i nterstitial edema. No pneumothorax. Mediastinum: Heart size is normal to upper normal. Fluid in the esophagus. No lymphadenopathy seen. C oronary artery calcifications. Thoracic Aorta: Moderate atherosclerosis. No aneurysm or dissection. Upper Abdomen: Unremarkable. Other: Scoliosis and degenerative changes in the spine. Vertebral body fractures at approximately T1 and T6, possibly old. Old rib fractures. IMPRESSION: 1. No pulmonary emboli seen. 2. Prominent central pulmonary arteries which may represent pulmonary arterial hypertension. 3. Emphysema with possible interstitial edema. 4. Bibasilar atelectasis or infiltrate and small left pleural effusion. 5. Fluid in the esophagus suggesting gastroesophageal reflux. [facility] Referring Provider Line: [phone] SITE ID: [id number]
[2017-05-29] MEDS ORDERED: FUROSEMIDE 20 MG/2 ML VIAL IVP SCH (05:06)
[2017-05-29] MEDS: SODIUM CHLORIDE 0.9% 1,000 ML IV SCH (05:12)
[2017-05-29 05:37] LABS: BASOPHILS # (AUTO) 0.1 10^3/uL (0.0-0.1); BASOPHILS % (AUTO) 0.7 %; EOSINOPHILS # (AUTO) 0.2 10^3/uL (0.0-0.7); EOSINOPHILS % (AUTO) 2.4 %; HGB - HEMOGLOBIN 10.1 g/dL (12.0-16.0); LYMPHOCYTES # (AUTO) 0.9 10^3/uL (1.5-3.5); LYMPHOCYTES % (AUTO) 9.4 %; MEAN CORPUSCULAR HGB CONC 31.6 g/dL (32.0-36.0); MEAN CORPUSCULAR VOLUME 91.8 fL (81.0-99.0); MEAN PLATELET VOLUME 8.5 fL (7.9-10.8); MONOCYTES # (AUTO) 0.8 10^3/uL (0.0-1.0); MONOCYTES % (AUTO) 9.2 %; NEUTROPHILS # (AUTO) 7.2 10^3/uL (1.5-6.6); NEUTROPHILS % (AUTO) 78.3 %; RED BLOOD COUNT 3.49 10^6/uL (4.20-5.40); RED CELL DISTRIBUTION WIDTH 17.4 % (12.0-15.0); UNCORRECTED WHITE BLOOD COUNT 9.2 x10^3/uL; WHITE BLOOD COUNT 9.2 x10^3/uL (4.8-10.8)
[2017-05-29 05:47] LABS: ALBUMIN/GLOBULIN RATIO 1.2 (1.0-2.2); BILIRUBIN,TOTAL 0.7 mg/dL (0.2-1.0); CALCIUM 7.4 mg/dL (8.5-10.3); CREATININE 1.3 mg/dL (0.4-1.0); MAGNESIUM 2.3 mg/dL (1.7-2.8); PHOSPHORUS 3.4 mg/dL (2.5-4.6); POTASSIUM 4.5 mmol/L (3.5-5.0); TOTAL PROTEIN 5.9 g/dL (6.7-8.2)
[2017-05-29] MEDS ORDERED: SODIUM CHLORIDE 0.9% 0 ML ONE (05:58)
[2017-05-29] MEDS: SODIUM CHLORIDE FLUSH 0.9% 10 ML SYRINGE IVP SCH ×3 (06:02→21:11)
[2017-05-29] MEDS: LEVOTHYROXINE 112 MCG TABLET PO SCH (06:03)
[2017-05-29] MEDS: LEVOTHYROXINE 25 MCG TABLET PO SCH (06:03)
[2017-05-29] MEDS: PANTOPRAZOLE 40 MG TABLET PO SCH (06:03)
--- NOTE | 2017-05-29 06:46 | PROVIDER PROGRESS NOTE ---
Assessment/Plan - Problem List (1) Acute respiratory failure with hypoxia Assessment/Plan: acute. patient had oxygen saturation drop to 55% last evening and needed 15 liters of oxygen with RT support. She had some mild fluid overload on CT of chest. ABG ordered. labs ordered for cardiac possiblities. She improved to >90% . She is a COPD patient and will require closer monitoring during inpatient stay. Lasix 20mg IV since CT also showed some possible infiltrate or effusion. She is already on Ceftriaxone for UTI, will add in Levaquin for possible aspiration PNA after extubation in the OR after hip surgery. will continue with breathing treatments, daily lab draws and supplemental support (2) Subcapital fracture of right femur Assessment/Plan: acute, improvig. ortho to follow. continue with PT and OT. pain management with tylenol and fentanyl. monitor CBC with daily lab draws (3) Alcohol dependence with physiological dependence, continuous Assessment/Plan: acute on chronic. continue to monitor for withdrawal. banana bag was given. monitor magnesium levels. continue on CIWA protocol. counseling with family and social work consult (4) UTI (urinary tract infection) Qualifiers: Urinary tract infection type: site unspecified Hematuria presence: without hematuria Qualified Code(s): N39.0 - Urinary tract infection, site not specified Assessment/Plan: acute, improving. continue with antibiotic treatment. culture is pending with sensitivities. monitor output. monitor CBC with daily lab draws. (5) COPD (chronic obstructive pulmonary disease) Qualifiers: COPD type: unspecified COPD Qualified Code(s): J44.9 - Chronic obstructive pulmonary disease, unspecified Assessment/Plan: acute on chronic. ABG ordered since patient had a hypoxic event after surgery for the right hip yesterday. will continue on oxygen and RT support. BIPAP if needed available. continue with Duoneb treatments. patient will need home oxygen when leaving. she was on this before and has stopped using it. (6) GERD (gastroesophageal reflux disease) Qualifiers: Esophagitis presence: without esophagitis Qualified Code(s): K21.9 - Gastro -esophageal reflux disease without esophagitis Assessment/Plan: chronic. continue on PPI - Current Meds Current Meds: Current Medications Generic Name Dose Route Start Last Admin Trade Name Freq PRN Reason Stop Dose Admin Acetaminophen/Hydrocodone Bitart 1 tab 05/26/17 23:40 05/29/17 01:22 [place] 10 Mg/325 Mg PO 1 tab Q4HR PRN Administration Pain 8 to 10 Albuterol/Ipratropium 3 ml 05/26/17 23:40 05/29/17 01:00 Duoneb INH 3 ml Q4HR PRN Administration Wheezing Cholecalciferol 5,000 unit 05/28/17 21:00 05/28/17 23:47 Vitamin D3 PO 5,000 unit BID RAJEEV Administration Enoxaparin Sodium 40 mg 05/28/17 09:00 05/28/17 14:26 Lovenox SUBQ Not Given DAILY RAJEEV Fentanyl 25 mcg 05/27/17 09:20 05/27/17 22:20 Fentanyl IVP 25 mcg Q2HR PRN Administration PAIN Furosemide 20 mg 05/29/17 05:06 05/29/17 06:02 Lasix Inj 20mg Vial IVP 05/29/17 09:00 20 mg ONCE RAJEEV Administration Hydromorphone HCl 1 mg 05/28/17 11:40 05/29/17 01:30 Dilaudid Inj IVP 1 mg Q2HR PRN Administration Breakthrough Pain Iopamidol 80 ml 05/29/17 02:31 05/29/17 02:32 Isovue-300 IVP 05/29/17 02:32 80 ml ONCE ONE Administration Levothyroxine Sodium 112 mcg 05/28/17 07:00 05/29/17 06:03 Synthroid PO 112 mcg QDAC RAJEEV Administration Levothyroxine Sodium 25 mcg 05/28/17 07:00 05/29/17 06:03 Synthroid PO 25 mcg QDAC RAJEEV Administration Morphine Sulfate 2 mg 05/26/17 23:40 05/28/17 23:57 Morphine IVP 2 mg Q2HR PRN Administration Pain 8 to 10 Pantoprazole Sodium 40 mg 05/27/17 07:00 05/29/17 06:03 Protonix PO 40 mg QDAC RAJEEV Administration Polyethylene Glycol 17 gm 05/27/17 09:00 05/28/17 14:27 Miralax PO Not Given DAILY [facility] Sodium Chloride 10 ml 05/28/17 14:00 05/29/17 06:02 Normal Saline Flush 0.9% IVP 10 ml Q8HR RAJEEV Administration Venlafaxine HCl 75 mg 05/27/17 03:00 05/28/17 23:30 Effexor Er PO 75 mg BID RAJEEV Administration - Lab Result Lab results reviewed: Yes Fish Bone Diagrams: 05/30/17 07:08 05/30/17 07:08 Other Lab Results: Abnormal Lab Results 05/28/17 05/28/17 05/28/17 05:45 05:45 23:00 RBC 4.03 10^6/uL L 10^6/uL (4.20-5.40) Hgb 11.6 g/dL L g/dL (12.0-16.0) Hct 36.0 % L % (37.0-47.0) MCHC RDW 16.8 % H % (12.0-15.0) Neut # Lymph # 0.7 10^3/uL L 10^3/uL (1.5-3.5) VBG pH VBG pCO2 VBG pO2 VBG HCO3 VBG Total CO2 VBG O2 Saturation VBG Base Excess Ionized Calcium Carbon Dioxide 19 mmol/L L mmol/L (21-32) Creatinine 1.2 mg/dL H mg/dL (0.4-1.0) Estimated GFR (MDRD) 70 L 44 L (>89) (>89) Glucose 118 mg/dL H mg/dL 156 mg/dL H mg/dL (70-100) (70-100) Calcium 7.6 mg/dL L mg/dL 7.4 mg/dL L mg/dL (8.5-10.3) (8.5-10.3) B-Natriuretic Peptide Total Protein 5.9 g/dL L g/dL 6.0 g/dL L g/dL (6.7-8.2) (6.7-8.2) 05/28/17 05/28/17 05/28/17 23:00 23:00 23:00 RBC 3.60 10^6/uL L 10^6/uL (4.20-5.40) Hgb 10.3 g/dL L g/dL (12.0-16.0) Hct 32.7 % L % (37.0-47.0) MCHC 31.5 g/dL L g/dL (32.0-36.0) RDW 17.1 % H % (12.0-15.0) Neut # Lymph # 0.5 10^3/uL L 10^3/uL (1.5-3.5) VBG pH 7.303 L (7.31-7.41) VBG pCO2 38.7 mmHg L mmHg (41-51) VBG pO2 76.9 mmHg H mmHg (25-47) VBG HCO3 18.7 mmol/L L mmol/L (23-28) VBG Total CO2 19.9 mmol/L L mmol/L (24-29) VBG O2 Saturation 95.1 % H % (60-80) VBG Base Excess -7.0 mmol/L L mmol/L (-2 - +2) Ionized Calcium Carbon Dioxide Creatinine Estimated GFR (MDRD) Glucose Calcium B-Natriuretic Peptide 243 pg/mL H pg/mL (5-100) Total Protein 05/28/17 05/29/17 05/29/17 23:00 05:13 05:13 RBC 3.49 10^6/uL L 10^6/uL (4.20-5.40) Hgb 10.1 g/dL L g/dL (12.0-16.0) Hct 32.0 % L % (37.0-47.0) MCHC 31.6 g/dL L g/dL (32.0-36.0) RDW 17.4 % H % (12.0-15.0) Neut # 7.2 10^3/uL H 10^3/uL (1.5-6.6) Lymph # 0.9 10^3/uL L 10^3/uL (1.5-3.5) VBG pH 7.270 L (7.31-7.41) VBG pCO2 VBG pO2 VBG HCO3 VBG Total CO2 VBG O2 Saturation VBG Base Excess Ionized Calcium 1.05 mmol/L L mmol/L (1.15-1.33) Carbon Dioxide 17 mmol/L L mmol/L (21-32) Creatinine 1.3 mg/dL H mg/dL (0.4-1.0) Estimated GFR (MDRD) 40 L (>89) Glucose 154 mg/dL H mg/dL (70-100) Calcium 7.4 mg/dL L mg/dL (8.5-10.3) B-Natriuretic Peptide Total Protein 5.9 g/dL L g/dL (6.7-8.2) - EKG Results EKG Interpreted Independently: Yes EKG Comparison: Unchanged from prior EKG - Diagnostic Imaging Results Diagnostic Imaging Results: Final report reviewed Diagnostic Imaging Results Comments: CTA of chest was negative for pulmonary embolism - Additional Planning Condition/Complexity: Stable My Orders: My Active Orders 05/28/17 07:00 Levothyroxine [Synthroid] 112 mcg PO QDAC Levothyroxine [Synthroid] 25 mcg PO QDAC 05/28/17 18:47 Ipratropium/Albuterol [Duoneb] 3 ml INH RTQID PRN 05/28/17 21:00 Cholecalciferol [Vitamin D3] 5,000 unit PO BID 05/29/17 07:00 levoFLOXacin 750 MG/150 ML [Levaquin 750 mg/150 ml] 150 ml IV Q24H Consult/Specialty: OT, PT, Surgery Plan Discussed with:: Patient, Family, Case Management Time Spent: 31-60 minutes (patient will need another 2 days since she is not wanting to walk and is more altered related to her respiratory status last night. She is improving on oxygen from 12 liters down to 6 liter NC) Objective Vital Signs: Vital Signs - 24 hr 05/28/17 05/28/17 05/28/17 08:00 09:04 11:25 Temperature 36.9 C Heart Rate 112 H Heart Rate [ 102 H Brachial] Respiratory 20 16 Rate Blood Pressure 168/84 H [Left Brachial artery] Blood Pressure [Right Brachial artery] O2 Saturation 88 L 96 05/28/17 05/28/17 05/28/17 11:30 11:40 11:45 Temperature Heart Rate Heart Rate [ Brachial] Respiratory Rate Blood Pressure [Left Brachial artery] Blood Pressure [Right Brachial artery] O2 Saturation 93 94 93 05/28/17 05/28/17 05/28/17 11:46 11:55 12:05 Temperature Heart Rate Heart Rate [ Brachial] Respiratory Rate Blood Pressure [Left Brachial artery] Blood Pressure [Right Brachial artery] O2 Saturation 93 93 93 05/28/17 05/28/17 05/28/17 12:10 12:20 12:25 Temperature Heart Rate Heart Rate [ Brachial] Respiratory Rate Blood Pressure [Left Brachial artery] Blood Pressure [Right Brachial artery] O2 Saturation 93 92 92 05/28/17 05/28/17 05/28/17 12:30 12:45 13:00 Temperature Heart Rate Heart Rate [ Brachial] Respiratory Rate Blood Pressure [Left Brachial artery] Blood Pressure [Right Brachial artery] O2 Saturation 93 92 93 05/28/17 05/28/17 05/28/17 13:15 13:30 13:45 Temperature Heart Rate Heart Rate [ Brachial] Respiratory Rate Blood Pressure [Left Brachial artery] Blood Pressure [Right Brachial artery] O2 Saturation 94 92 93 05/28/17 05/28/17 05/28/17 14:00 14:15 14:47 Temperature 37.0 C Heart Rate Heart Rate [ 106 H Brachial] Respiratory 22 Rate Blood Pressure [Left Brachial artery] Blood Pressure 127/66 [Right Brachial artery] O2 Saturation 96 98 94 05/28/17 05/28/17 05/28/17 15:10 15:13 15:50 Temperature 37 C Heart Rate 114 H Heart Rate [ 111 H 108 H Brachial] Respiratory 18 22 24 Rate Blood Pressure [Left Brachial artery] Blood Pressure 124/84 H 132/61 H [Right Brachial artery] O2 Saturation 96 96 05/28/17 05/28/17 05/28/17 17:24 19:45 23:00 Temperature 37.4 C 36.8 C Heart Rate 114 H Heart Rate [ 114 H 122 H Brachial] Respiratory 18 20 14 Rate Blood Pressure [Left Brachial artery] Blood Pressure 139/66 H 128/60 [Right Brachial artery] O2 Saturation 95 95 05/29/17 05/29/17 05/29/17 00:48 01:00 06:32 Temperature 36.4 C L 36.5 C Heart Rate 116 H Heart Rate [ 119 H 121 H Brachial] Respiratory 20 20 18 Rate Blood Pressure [Left Brachial artery] Blood Pressure 127/66 134/77 H [Right Brachial artery] O2 Saturation 95 94 Oxygen O2 Source Oxymask I&O (Last 24 Hrs): Intake and Output Totals x24h 05/27/17 05/28/17 05/29/17 23:59 23:59 23:59 Intake Total 1552 1050 800 Output Total 700 320 Balance 852 730 800 - Results Results: Laboratory Results WBC 9.2 x10^3/uL (4.8-10.8) 05/29/17 05:13 RBC 3.49 10^6/uL (4.20-5.40) L 05/29/17 05:13 Hgb 10.1 g/dL (12.0-16.0) L 05/29/17 05:13 Hct 32.0 % (37.0-47.0) L 05/29/17 05:13 MCV 91.8 fL (81.0-99.0) 05/29/17 05:13 MCH 29.0 pg (27.0-31.0) 05/29/17 05:13 MCHC 31.6 g/dL (32.0-36.0) L 05/29/17 05:13 RDW 17.4 % (12.0-15.0) H 05/29/17 05:13 Plt Count 149 10^3/uL (130-450) 05/29/17 05:13 MPV 8.5 fL (7.9-10.8) 05/29/17 05:13 Neut # 7.2 10^3/uL (1.5-6.6) H 05/29/17 05:13 Lymph # 0.9 10^3/uL (1.5-3.5) L 05/29/17 05:13 [place] # 0.8 10^3/uL (0.0-1.0) 05/29/17 05:13 Eos # 0.2 10^3/uL (0.0-0.7) 05/29/17 05:13 Baso # 0.1 10^3/uL (0.0-0.1) 05/29/17 05:13 Absolute Nucleated RBC 0.00 x10^3/uL 05/29/17 05:13 Nucleated RBCs 0.0 /100WBC 05/29/17 05:13 PT 11.5 secs (9.9-12.6) 05/27/17 02:25 INR 1.0 (0.8-1.2) 05/27/17 02:25 VBG pH 7.270 (7.31-7.41) L 05/28/17 23:00 VBG pCO2 38.7 mmHg (41-51) L 05/28/17 23:00 VBG pO2 76.9 mmHg (25-47) H 05/28/17 23:00 VBG HCO3 18.7 mmol/L (23-28) L 05/28/17 23:00 VBG Total CO2 19.9 mmol/L (24-29) L 05/28/17 23:00 VBG O2 Saturation 95.1 % (60-80) H 05/28/17 23:00 VBG Base Excess -7.0 mmol/L (-2 - +2) L 05/28/17 23:00 Ionized Calcium 1.05 mmol/L (1.15-1.33) L 05/28/17 23:00 Sodium 136 mmol/L (135-145) 05/29/17 05:13 Potassium 4.5 mmol/L (3.5-5.0) 05/29/17 05:13 Chloride 110 mmol/L (101-111) 05/29/17 05:13 Carbon Dioxide 17 mmol/L (21-32) L 05/29/17 05:13 Anion Gap 9.0 (6-13) 05/29/17 05:13 BUN 19 mg/dL (6-20) 05/29/17 05:13 Creatinine 1.3 mg/dL (0.4-1.0) H 05/29/17 05:13 Estimated GFR (MDRD) 40 (>89) L 05/29/17 05:13 Glucose 154 mg/dL (70-100) H 05/29/17 05:13 Lactic Acid 1.6 mmol/L (0.5-2.2) 05/28/17 23:00 Calcium 7.4 mg/dL (8.5-10.3) L 05/29/17 05:13 Ionized Calcium YES 05/28/17 23:00 Phosphorus 3.4 mg/dL (2.5-4.6) 05/29/17 05:13 Magnesium 2.3 mg/dL (1.7-2.8) 05/29/17 05:13 Total Bilirubin 0.7 mg/dL (0.2-1.0) 05/29/17 05:13 AST 36 IU/L (10-42) 05/29/17 05:13 ALT 16 IU/L (10-60) 05/29/17 05:13 Alkaline Phosphatase 78 IU/L (42-121) 05/29/17 05:13 Troponin I 0.09 ng/mL (<0.49) 05/29/17 05:13 B-Natriuretic Peptide 243 pg/mL (5-100) H 05/28/17 23:00 Total Protein 5.9 g/dL (6.7-8.2) L 05/29/17 05:13 Albumin 3.2 g/dL (3.2-5.5) 05/29/17 05:13 Globulin 2.7 g/dL (2.1-4.2) 05/29/17 05:13 Albumin/Globulin Ratio 1.2 (1.0-2.2) 05/29/17 05:13 Lipase 19 U/L (22-51) L 05/26/17 21:30 TSH 0.76 uIU/mL (0.34-5.60) 05/27/17 02:25 Urine Color YELLOW 05/26/17 23:39 Urine Clarity CLEAR (CLEAR) 05/26/17 23:39 Urine pH 5.5 PH (5.0-7.5) 05/26/17 23:39 Ur Specific [place] 1.010 (1.002-1.030) 05/26/17 23:39 Urine Protein NEGATIVE mg/dL (NEGATIVE) 05/26/17 23:39 Urine Glucose (UA) NEGATIVE mg/dL (NEGATIVE) 05/26/17 23:39 Urine Ketones NEGATIVE mg/dL (NEGATIVE) 05/26/17 23:39 Urine Occult Blood NEGATIVE (NEGATIVE) 05/26/17 23:39 Urine Nitrite POSITIVE (NEGATIVE) H 05/26/17 23:39 Urine Bilirubin NEGATIVE (NEGATIVE) 05/26/17 23:39 Urine Urobilinogen 0.2 (NORMAL) E.U./dL (NORMAL) 05/26/17 23:39 Ur Leukocyte Esterase SMALL (NEGATIVE) H 05/26/17 23:39 Urine RBC 6-10 /HPF (0-5) H 05/26/17 23:39 Urine WBC >25 /HPF (0-5) H 05/26/17 23:39 Ur Squamous Epith Cells RARE Squamous (<= Few) 05/26/17 23:39 Urine Bacteria Moderate /HPF (None Seen) H 05/26/17 23:39 Ur Microscopic Review INDICATED 05/26/17 23:39 Urine Culture Comments INDICATED 05/26/17 23:39 Ethyl Alcohol 68.9 mg/dL 05/27/17 02:25 Blood Type O POSITIVE 05/28/17 08:40 Antibody Screen NEGATIVE 05/28/17 08:40 - Procedures Procedures: Procedures OP RED-INT FIX RAD/ULNA (05/31/15)
[2017-05-29] MEDS ORDERED: MULTIVITAMIN 10 ML, THIAMINE INJ 100 MG, FOLIC ACID INJ 1 MG in SODIUM CHLORIDE 0.9% 1,... IV SCH (09:00)
[2017-05-29] MEDS: VENLAFAXINE ER 75 MG CAPSULE PO SCH ×2 (09:23→21:22)
[2017-05-29] MEDS: ENOXAPARIN 40 MG/0.4 ML SYRINGE SUBQ SCH (09:24)
[2017-05-29] MEDS: POLYETHYLENE GLYCOL 3350 17 GM PACKET PO SCH (09:24)
[2017-05-29] MEDS: SODIUM CHLORIDE FLUSH 0.9% 10 ML SYRINGE IVP PRN (09:26)
[2017-05-29] MEDS: CHOLECALCIFEROL 5,000 UNIT CAPSULE PO SCH ×2 (11:39→21:12)
[2017-05-29] MEDS ORDERED: ALPRAZolam 0.25 MG TABLET PO PRN (11:47)
[2017-05-29] MEDS ORDERED: cloNIDine 0.1 MG TABLET PO SCH (12:00)
--- NOTE | 2017-05-29 14:47 | PROVIDER PROGRESS NOTE ---
Subjective - General Admit Date: 05/26/17 Procedure Date: 05/28/17 Post Op Days: 1 Procedure Performed: Right Hip Hemiarthroplasty via anterolateral approach - Review of Systems Wound/Incisions: positive: Healing well, Dressing dry and intact Drain Type: None. General: positive: No symptoms HEENT: positive: No symptoms Pulmonary: positive: Shortness of breath Cardiovascular: positive: No symptoms Gastrointestinal: positive: No symptoms Genitourinary: positive: No symptoms Musculoskeletal: positive: Other (Mild to moderate Right hip pain at incision.) Skin: positive: No symptoms Neurological: Psychiatric: positive: No symptoms All Other Systems: positive: Reviewed and negative Objective - Patient Data Reviewed Vital Signs: Yes Vital Signs: Vital Signs x48h Temp Pulse Pulse Pulse Pulse Resp BP 05/29/17 14:06 118 H 20 05/29/17 13:43 36.9 C 122 H 14 05/29/17 11:05 125 H 120 H 134/51 H 05/29/17 11:03 125 H 120 H 134/51 H 05/29/17 09:15 117 H 18 BP BP Pulse Ox 05/29/17 14:06 05/29/17 13:43 116/66 92 05/29/17 11:05 119/85 H 05/29/17 11:03 119/85 H 05/29/17 09:15 Weight: Weight 05/27/17 05/28/17 05/29/17 23:59 23:59 23:59 Weight (kg) 63.5 kg Intake & Output: Intake and Output Totals x24h 05/27/17 05/28/17 05/29/17 23:59 23:59 23:59 Intake Total 1552 1050 1000 Output Total 700 320 700 Balance 852 730 300 - Lab Results Lab Results: 05/29/17 05:13 05/29/17 05:13 Other Lab Results: Lab Results x24hrs 05/29/17 05/29/17 05/29/17 Range/Units 11:00 05:13 05:13 WBC (4.8-10.8) x10^3/uL RBC (4.20-5.40) 10^6/uL Hgb (12.0-16.0) g/dL Hct (37.0-47.0) % MCV (81.0-99.0) fL MCH (27.0-31.0) pg MCHC (32.0-36.0) g/dL RDW (12.0-15.0) % Plt Count (130-450) 10^3/uL MPV (7.9-10.8) fL Neut # (1.5-6.6) 10^3/uL Lymph # (1.5-3.5) 10^3/uL [place] # (0.0-1.0) 10^3/uL Eos # (0.0-0.7) 10^3/uL Baso # (0.0-0.1) 10^3/uL Absolute Nucleated RBC x10^3/uL Nucleated RBCs /100WBC VBG pH (7.31-7.41) VBG pCO2 (41-51) mmHg VBG pO2 (25-47) mmHg VBG HCO3 (23-28) mmol/L VBG Total CO2 (24-29) mmol/L VBG O2 Saturation (60-80) % VBG Base Excess (-2 - +2) mmol/L Ionized Calcium (1.15-1.33) mmol/L Sodium 136 (135-145) mmol/L Potassium 4.5 (3.5-5.0) mmol/L Chloride 110 (101-111) mmol/L Carbon Dioxide 17 L (21-32) mmol/L Anion Gap 9.0 (6-13) BUN 19 (6-20) mg/dL Creatinine 1.3 H (0.4-1.0) mg/dL Estimated GFR (MDRD) 40 L (>89) Glucose 154 H (70-100) mg/dL Lactic Acid (0.5-2.2) mmol/L Calcium 7.4 L (8.5-10.3) mg/dL Phosphorus 3.4 (2.5-4.6) mg/dL Magnesium 2.3 (1.7-2.8) mg/dL Total Bilirubin 0.7 (0.2-1.0) mg/dL AST 36 (10-42) IU/L ALT 16 (10-60) IU/L Alkaline Phosphatase 78 (42-121) IU/L Troponin I 0.11 0.09 (<0.49) ng/mL B-Natriuretic Peptide (5-100) pg/mL Total Protein 5.9 L (6.7-8.2) g/dL Albumin 3.2 (3.2-5.5) g/dL Globulin 2.7 (2.1-4.2) g/dL Albumin/Globulin Ratio 1.2 (1.0-2.2) 05/29/17 05/28/17 05/28/17 Range/Units 05:13 23:00 23:00 WBC 9.2 (4.8-10.8) x10^3/uL RBC 3.49 L (4.20-5.40) 10^6/uL Hgb 10.1 L (12.0-16.0) g/dL Hct 32.0 L (37.0-47.0) % MCV 91.8 (81.0-99.0) fL MCH 29.0 (27.0-31.0) pg MCHC 31.6 L (32.0-36.0) g/dL RDW 17.4 H (12.0-15.0) % Plt Count 149 (130-450) 10^3/uL MPV 8.5 (7.9-10.8) fL Neut # 7.2 H (1.5-6.6) 10^3/uL Lymph # 0.9 L (1.5-3.5) 10^3/uL [place] # 0.8 (0.0-1.0) 10^3/uL Eos # 0.2 (0.0-0.7) 10^3/uL Baso # 0.1 (0.0-0.1) 10^3/uL Absolute Nucleated RBC 0.00 x10^3/uL Nucleated RBCs 0.0 /100WBC VBG pH 7.270 L 7.303 L (7.31-7.41) VBG pCO2 38.7 L (41-51) mmHg VBG pO2 76.9 H (25-47) mmHg VBG HCO3 18.7 L (23-28) mmol/L VBG Total CO2 19.9 L (24-29) mmol/L VBG O2 Saturation 95.1 H (60-80) % VBG Base Excess -7.0 L (-2 - +2) mmol/L Ionized Calcium 1.05 L (1.15-1.33) mmol/L Sodium (135-145) mmol/L Potassium (3.5-5.0) mmol/L Chloride (101-111) mmol/L Carbon Dioxide (21-32) mmol/L Anion Gap (6-13) BUN (6-20) mg/dL Creatinine (0.4-1.0) mg/dL Estimated GFR (MDRD) (>89) Glucose (70-100) mg/dL Lactic Acid (0.5-2.2) mmol/L Calcium (8.5-10.3) mg/dL Phosphorus (2.5-4.6) mg/dL Magnesium (1.7-2.8) mg/dL Total Bilirubin (0.2-1.0) mg/dL AST (10-42) IU/L ALT (10-60) IU/L Alkaline Phosphatase (42-121) IU/L Troponin I (<0.49) ng/mL B-Natriuretic Peptide (5-100) pg/mL Total Protein (6.7-8.2) g/dL Albumin (3.2-5.5) g/dL Globulin (2.1-4.2) g/dL Albumin/Globulin Ratio (1.0-2.2) 05/28/17 05/28/17 05/28/17 Range/Units 23:00 23:00 23:00 WBC (4.8-10.8) x10^3/uL RBC (4.20-5.40) 10^6/uL Hgb (12.0-16.0) g/dL Hct (37.0-47.0) % MCV (81.0-99.0) fL MCH (27.0-31.0) pg MCHC (32.0-36.0) g/dL RDW (12.0-15.0) % Plt Count (130-450) 10^3/uL MPV (7.9-10.8) fL Neut # (1.5-6.6) 10^3/uL Lymph # (1.5-3.5) 10^3/uL [place] # (0.0-1.0) 10^3/uL Eos # (0.0-0.7) 10^3/uL Baso # (0.0-0.1) 10^3/uL Absolute Nucleated RBC x10^3/uL Nucleated RBCs /100WBC VBG pH (7.31-7.41) VBG pCO2 (41-51) mmHg VBG pO2 (25-47) mmHg VBG HCO3 (23-28) mmol/L VBG Total CO2 (24-29) mmol/L VBG O2 Saturation (60-80) % VBG Base Excess (-2 - +2) mmol/L Ionized Calcium (1.15-1.33) mmol/L Sodium (135-145) mmol/L Potassium (3.5-5.0) mmol/L Chloride (101-111) mmol/L Carbon Dioxide (21-32) mmol/L Anion Gap (6-13) BUN (6-20) mg/dL Creatinine (0.4-1.0) mg/dL Estimated GFR (MDRD) (>89) Glucose (70-100) mg/dL Lactic Acid (0.5-2.2) mmol/L Calcium (8.5-10.3) mg/dL Phosphorus 3.3 (2.5-4.6) mg/dL Magnesium 2.5 (1.7-2.8) mg/dL Total Bilirubin (0.2-1.0) mg/dL AST (10-42) IU/L ALT (10-60) IU/L Alkaline Phosphatase (42-121) IU/L Troponin I 0.04 (<0.49) ng/mL B-Natriuretic Peptide 243 H (5-100) pg/mL Total Protein (6.7-8.2) g/dL Albumin (3.2-5.5) g/dL Globulin (2.1-4.2) g/dL Albumin/Globulin Ratio (1.0-2.2) 05/28/17 05/28/17 05/28/17 Range/Units 23:00 23:00 23:00 WBC 8.0 (4.8-10.8) x10^3/uL RBC 3.60 L (4.20-5.40) 10^6/uL Hgb 10.3 L (12.0-16.0) g/dL Hct 32.7 L (37.0-47.0) % MCV 90.8 (81.0-99.0) fL MCH 28.6 (27.0-31.0) pg MCHC 31.5 L (32.0-36.0) g/dL RDW 17.1 H (12.0-15.0) % Plt Count 137 (130-450) 10^3/uL MPV 8.3 (7.9-10.8) fL Neut # 6.5 (1.5-6.6) 10^3/uL Lymph # 0.5 L (1.5-3.5) 10^3/uL [place] # 0.7 (0.0-1.0) 10^3/uL Eos # 0.3 (0.0-0.7) 10^3/uL Baso # 0.0 (0.0-0.1) 10^3/uL Absolute Nucleated RBC 0.00 x10^3/uL Nucleated RBCs 0.0 /100WBC VBG pH (7.31-7.41) VBG pCO2 (41-51) mmHg VBG pO2 (25-47) mmHg VBG HCO3 (23-28) mmol/L VBG Total CO2 (24-29) mmol/L VBG O2 Saturation (60-80) % VBG Base Excess (-2 - +2) mmol/L Ionized Calcium YES (1.15-1.33) mmol/L Sodium 136 (135-145) mmol/L Potassium 4.3 (3.5-5.0) mmol/L Chloride 108 (101-111) mmol/L Carbon Dioxide 19 L (21-32) mmol/L Anion Gap 9.0 (6-13) BUN 19 (6-20) mg/dL Creatinine 1.2 H (0.4-1.0) mg/dL Estimated GFR (MDRD) 44 L (>89) Glucose 156 H (70-100) mg/dL Lactic Acid 1.6 (0.5-2.2) mmol/L Calcium 7.4 L (8.5-10.3) mg/dL Phosphorus (2.5-4.6) mg/dL Magnesium (1.7-2.8) mg/dL Total Bilirubin 0.5 (0.2-1.0) mg/dL AST 29 (10-42) IU/L ALT 13 (10-60) IU/L Alkaline Phosphatase 78 (42-121) IU/L Troponin I (<0.49) ng/mL B-Natriuretic Peptide (5-100) pg/mL Total Protein 6.0 L (6.7-8.2) g/dL Albumin 3.3 (3.2-5.5) g/dL Globulin 2.7 (2.1-4.2) g/dL Albumin/Globulin Ratio 1.2 (1.0-2.2) - Imaging Results Radiology Imaging: positive: EMP read indepedently (Right Hip Hemiarthroplasty in good position.) - Current Medications Current Medications: Current Medications Generic Name Dose Route Start Last Admin Trade Name Freq PRN Reason Stop Dose Admin Acetaminophen/Hydrocodone Bitart 1 tab 05/26/17 23:40 05/29/17 13:28 [place] 5/325 PO 1 tab Q4HR PRN Administration Pain 5 to 7 Acetaminophen/Hydrocodone Bitart 1 tab 05/26/17 23:40 05/29/17 10:26 [place] 10 Mg/325 Mg PO 1 tab Q4HR PRN Administration Pain 8 to 10 Albuterol/Ipratropium 3 ml 05/26/17 23:40 05/29/17 14:05 Duoneb INH 3 ml Q4HR PRN Administration Wheezing Cholecalciferol 5,000 unit 05/28/17 21:00 05/29/17 11:39 Vitamin D3 PO 5,000 unit BID RAJEEV Administration Clonidine HCl 0.1 mg 05/29/17 12:00 05/29/17 13:29 Catapres PO 05/29/17 15:00 0.1 mg ONCE RAJEEV Administration Enoxaparin Sodium 40 mg 05/28/17 09:00 05/29/17 09:24 Lovenox SUBQ 40 mg DAILY RAJEEV Administration Fentanyl 25 mcg 05/27/17 09:20 05/27/17 22:20 Fentanyl IVP 25 mcg Q2HR PRN Administration PAIN Hydromorphone HCl 1 mg 05/28/17 11:40 05/29/17 13:28 Dilaudid Inj IVP 1 mg Q2HR PRN Administration Breakthrough Pain Levofloxacin 150 mls @ 100 mls/hr 05/29/17 08:00 05/29/17 09:24 Levaquin 750 Mg/150 Ml IV 100 mls/hr Q48H RAJEEV Administration Levothyroxine Sodium 112 mcg 05/28/17 07:00 05/29/17 06:03 Synthroid PO 112 mcg QDAC RAJEEV Administration Morphine Sulfate 2 mg 05/26/17 23:40 05/28/17 23:57 Morphine IVP 2 mg Q2HR PRN Administration Pain 8 to 10 Pantoprazole Sodium 40 mg 05/27/17 07:00 05/29/17 06:03 Protonix PO 40 mg QDAC RAJEEV Administration Polyethylene Glycol 17 gm 05/27/17 09:00 05/29/17 09:24 Miralax PO 17 gm DAILY RAJEEV Administration Sodium Chloride 10 ml 05/28/17 11:40 05/29/17 09:26 Normal Saline Flush 0.9% IVP 10 ml PRN PRN Administration NEEDED PER PROVIDER ORDERS Sodium Chloride 10 ml 05/28/17 14:00 05/29/17 14:43 Normal Saline Flush 0.9% IVP 10 ml Q8HR RAJEEV Administration Venlafaxine HCl 75 mg 05/27/17 03:00 05/29/17 09:23 Effexor Er PO 75 mg BID RAJEEV Administration - Physical Exam Wound/Incisions: positive: Dressing dry and intact General Appearance: positive: Alert, Mild distress ENT: positive: ENT inspection nml Neck: positive: Nml inspection Respiratory: positive: No respiratory distress Cardiovascular: positive: Regular rate & rhythm Abdomen: positive: Non-tender, Nml bowel sounds, No distention. negative: Guarding Back: positive: Nml inspection Skin: positive: Color nml, No rash, Warm, Dry Extremities: negative: Pedal edema, Calf tenderness, Senthil's sign/cords Neurologic/Psychiatric: positive: Oriented x3, Motor nml, Sensation nml, Mood/ affect nml Impression/Plan - Problem List Problem List: 1. Right Femur Garden IV, closed Femoral Neck Fracture (displaced). 2. Right Hip Hemiarthroplasty. 3. Aftercare following Joint Replacement. 4. COPD. PLAN: 1. Mobilize with PT, WBAT RLE. 2. Plan for discharge to SNF.
[2017-05-30] MEDS: HYDROcod/ACETAM 10 MG/325 MG TABLET PO PRN (04:42)
[2017-05-30] MEDS: PANTOPRAZOLE 40 MG TABLET PO SCH (06:53)
[2017-05-30] MEDS: SODIUM CHLORIDE FLUSH 0.9% 10 ML SYRINGE IVP SCH ×3 (06:53→21:44)
[2017-05-30] MEDS: LEVOTHYROXINE 112 MCG TABLET PO SCH (06:53)
[2017-05-30 07:24] LABS: BASOPHILS % (AUTO) 0.5 %; EOSINOPHILS # (AUTO) 0.1 10^3/uL (0.0-0.7); EOSINOPHILS % (AUTO) 0.9 %; HCT - HEMATOCRIT 30.2 % (37.0-47.0); HGB - HEMOGLOBIN 9.5 g/dL (12.0-16.0); LYMPHOCYTES # (AUTO) 0.6 10^3/uL (1.5-3.5); LYMPHOCYTES % (AUTO) 9.7 %; MEAN CORPUSCULAR HEMOGLOBIN 28.5 pg (27.0-31.0); MEAN CORPUSCULAR HGB CONC 31.6 g/dL (32.0-36.0); MEAN CORPUSCULAR VOLUME 90.3 fL (81.0-99.0); MEAN PLATELET VOLUME 8.5 fL (7.9-10.8); MONOCYTES # (AUTO) 0.5 10^3/uL (0.0-1.0); MONOCYTES % (AUTO) 7.9 %; NEUTROPHILS # (AUTO) 4.8 10^3/uL (1.5-6.6); NUCLEATED RED BLOOD CELLS AUTO 0.1 /100WBC; RED BLOOD COUNT 3.35 10^6/uL (4.20-5.40); RED CELL DISTRIBUTION WIDTH 17.2 % (12.0-15.0); UNCORRECTED WHITE BLOOD COUNT 5.9 x10^3/uL; WHITE BLOOD COUNT 5.9 x10^3/uL (4.8-10.8)
[2017-05-30 07:45] LABS: ALBUMIN/GLOBULIN RATIO 1.2 (1.0-2.2); BILIRUBIN,TOTAL 1.3 mg/dL (0.2-1.0); CALCIUM 7.9 mg/dL (8.5-10.3); CREATININE 1.7 mg/dL (0.4-1.0); MAGNESIUM 2.3 mg/dL (1.7-2.8); PHOSPHORUS 3.3 mg/dL (2.5-4.6); POTASSIUM 4.9 mmol/L (3.5-5.0); TOTAL PROTEIN 5.6 g/dL (6.7-8.2)
[2017-05-30 09:08] LABS: IMMATURE RETIC FRACTION 0.61; RED BLOOD COUNT 3.35 10^6/uL (4.20-5.40)
[2017-05-30 09:09] LABS: INR 1.5 (0.8-1.2); PT - PROTHROMBIN TIME 16.6 secs (9.9-12.6)
[2017-05-30 09:16] LABS: PARTIAL THROMBOPLASTIN TIME 28.4 secs (24.9-33.3)
[2017-05-30 09:25] LABS: IRON 17 ug/dL (28-170); TOTAL IRON BINDING CAPACITY 302 ug/dL (250-450); TRANSFERRIN 216 mg/dL (192-382)
[2017-05-30 09:40] LABS: FERRITIN 880.8 ng/mL (11.0-306.8)
[2017-05-30] MEDS ORDERED: SODIUM CHLORIDE 0.9% 1,000 ML IV ONE (10:27)
[2017-05-30] MEDS ORDERED: LACTULOSE 10 GM /15 ML UDC PO SCH ×2 (12:00→13:00)
[2017-05-30] MEDS: CHOLECALCIFEROL 5,000 UNIT CAPSULE PO SCH ×2 (12:18→21:43)
[2017-05-30] MEDS: POLYETHYLENE GLYCOL 3350 17 GM PACKET PO SCH (12:18)
[2017-05-30] MEDS: VENLAFAXINE ER 75 MG CAPSULE PO SCH ×2 (12:18→21:44)
[2017-05-30] MEDS: LACTULOSE 10 GM /15 ML UDC PO SCH ×2 (12:30→14:34)
[2017-05-30] MEDS: ENOXAPARIN 40 MG/0.4 ML SYRINGE SUBQ SCH (12:30)
[2017-05-30] MEDS: SODIUM CHLORIDE FLUSH 0.9% 10 ML SYRINGE IVP PRN (12:31)
--- NOTE | 2017-05-30 12:40 | PROVIDER PROGRESS NOTE ---
Assessment/Plan - Problem List (1) Acute on chronic alcoholic liver disease Assessment/Plan: acute. with transaminitis. patient LFT elevated above normal >10x. continue to hydrate and monitor for worsening with lab draws daily (2) Alcohol dependence with physiological dependence, continuous Assessment/Plan: chronic with acute liver failure. patients LFT AST was 10x greater than the norm and ALT was elevated same. She may have an hepatic arterial infarct or worsening hepatic alcoholic liver failure with onset after the respiratory failure after surgery. LDH grossly elevated along with bilirubin. Hepatitis panel ordered. tox screen ordered. Avoid hepatoxic drugs and continue to monitor LFT and electrolytes with daily lab draw. continue on CIWA protocol. continue with hydration since patient also has CK of 930 (3) Acute respiratory failure with hypoxia Assessment/Plan: improving. patient is on 4-6 liters of oxygen with RT support and duoneb treatments as needed. ABG was completed and was slightly metabolic acidosis. She is alert to name and birthday. She knows she is in the hospital. This may be due to the alcohol level and abuse prior to the surgery. continue to monitor respiratory status. (4) Subcapital fracture of right femur Assessment/Plan: improving.PT and OT assist daily (5) UTI (urinary tract infection) Qualifiers: Urinary tract infection type: site unspecified Hematuria presence: without hematuria Qualified Code(s): N39.0 - Urinary tract infection, site not specified Assessment/Plan: improving. continue on antibiotic for UTi. pending cultures (6) COPD (chronic obstructive pulmonary disease) Qualifiers: COPD type: unspecified COPD Qualified Code(s): J44.9 - Chronic obstructive pulmonary disease, unspecified Assessment/Plan: chronic. improving. continue with COPD meds and supplemental oxygen and RT support (7) GERD (gastroesophageal reflux disease) Qualifiers: Esophagitis presence: without esophagitis Qualified Code(s): K21.9 - Gastro -esophageal reflux disease without esophagitis Assessment/Plan: chronic. continue on PPI. - Current Meds Current Meds: Current Medications Generic Name Dose Route Start Last Admin Trade Name Freq PRN Reason Stop Dose Admin Albuterol/Ipratropium 3 ml 05/26/17 23:40 05/29/17 18:25 Duoneb INH 3 ml Q4HR PRN Administration Wheezing Cholecalciferol 5,000 unit 05/28/17 21:00 05/30/17 12:18 Vitamin D3 PO Not Given BID [facility] Enoxaparin Sodium 40 mg 05/28/17 09:00 05/30/17 12:30 Lovenox SUBQ 40 mg DAILY RAJEEV Administration Hydromorphone HCl 1 mg 05/28/17 11:40 05/29/17 21:11 Dilaudid Inj IVP 1 mg Q2HR PRN Administration Breakthrough Pain Levofloxacin 150 mls @ 100 mls/hr 05/29/17 08:00 05/29/17 09:24 Levaquin 750 Mg/150 Ml IV 100 mls/hr Q48H RAJEEV Administration Lactulose 10 gm 05/30/17 11:08 05/30/17 12:30 Enulose PO Not Given DAILY [facility] Levothyroxine Sodium 112 mcg 05/28/17 07:00 05/30/17 06:53 Synthroid PO 112 mcg QDAC RAJEEV Administration Morphine Sulfate 2 mg 05/26/17 23:40 05/28/17 23:57 Morphine IVP 2 mg Q2HR PRN Administration Pain 8 to 10 Pantoprazole Sodium 40 mg 05/27/17 07:00 05/30/17 06:53 Protonix PO 40 mg QDAC RAJEEV Administration Polyethylene Glycol 17 gm 05/27/17 09:00 05/30/17 12:18 Miralax PO Not Given DAILY [facility] Sodium Chloride 10 ml 05/28/17 11:40 05/30/17 12:31 Normal Saline Flush 0.9% IVP 10 ml PRN PRN Administration NEEDED PER PROVIDER ORDERS Sodium Chloride 10 ml 05/28/17 14:00 05/30/17 06:53 Normal Saline Flush 0.9% IVP 10 ml Q8HR RAJEEV Administration Venlafaxine HCl 75 mg 05/27/17 03:00 05/30/17 12:18 Effexor Er PO Not Given BID RAJEEV - Lab Result Lab results reviewed: Yes Fish Bone Diagrams: 05/30/17 07:08 05/30/17 07:08 Other Lab Results: Abnormal Lab Results 05/28/17 05/28/17 05/28/17 23:00 23:00 23:00 RBC 3.60 10^6/uL L 10^6/uL (4.20-5.40) Hgb 10.3 g/dL L g/dL (12.0-16.0) Hct 32.7 % L % (37.0-47.0) MCHC 31.5 g/dL L g/dL (32.0-36.0) RDW 17.1 % H % (12.0-15.0) Plt Count Neut # Lymph # 0.5 10^3/uL L 10^3/uL (1.5-3.5) PT INR VBG pH VBG pCO2 VBG pO2 VBG HCO3 VBG Total CO2 VBG O2 Saturation VBG Base Excess Ionized Calcium Carbon Dioxide 19 mmol/L L mmol/L (21-32) BUN Creatinine 1.2 mg/dL H mg/dL (0.4-1.0) Estimated GFR (MDRD) 44 L (>89) Glucose 156 mg/dL H mg/dL (70-100) Calcium 7.4 mg/dL L mg/dL (8.5-10.3) Iron % Saturation Ferritin Total Bilirubin AST ALT Lactate Dehydrogenase Total Creatine Kinase B-Natriuretic Peptide 243 pg/mL H pg/mL (5-100) Total Protein 6.0 g/dL L g/dL (6.7-8.2) Albumin Lipase Vitamin B12 05/28/17 05/28/17 05/29/17 23:00 23:00 05:13 RBC 3.49 10^6/uL L 10^6/uL (4.20-5.40) Hgb 10.1 g/dL L g/dL (12.0-16.0) Hct 32.0 % L % (37.0-47.0) MCHC 31.6 g/dL L g/dL (32.0-36.0) RDW 17.4 % H % (12.0-15.0) Plt Count Neut # 7.2 10^3/uL H 10^3/uL (1.5-6.6) Lymph # 0.9 10^3/uL L 10^3/uL (1.5-3.5) PT INR VBG pH 7.303 L 7.270 L (7.31-7.41) (7.31-7.41) VBG pCO2 38.7 mmHg L mmHg (41-51) VBG pO2 76.9 mmHg H mmHg (25-47) VBG HCO3 18.7 mmol/L L mmol/L (23-28) VBG Total CO2 19.9 mmol/L L mmol/L (24-29) VBG O2 Saturation 95.1 % H % (60-80) VBG Base Excess -7.0 mmol/L L mmol/L (-2 - +2) Ionized Calcium 1.05 mmol/L L mmol/L (1.15-1.33) Carbon Dioxide BUN Creatinine Estimated GFR (MDRD) Glucose Calcium Iron % Saturation Ferritin Total Bilirubin AST ALT Lactate Dehydrogenase Total Creatine Kinase B-Natriuretic Peptide Total Protein Albumin Lipase Vitamin B12 05/29/17 05/30/17 05/30/17 05:13 07:08 07:08 RBC 3.35 10^6/uL L 10^6/uL (4.20-5.40) Hgb 9.5 g/dL L g/dL (12.0-16.0) Hct 30.2 % L % (37.0-47.0) MCHC 31.6 g/dL L g/dL (32.0-36.0) RDW 17.2 % H % (12.0-15.0) Plt Count 112 10^3/uL L 10^3/uL (130-450) Neut # Lymph # 0.6 10^3/uL L 10^3/uL (1.5-3.5) PT INR VBG pH VBG pCO2 VBG pO2 VBG HCO3 VBG Total CO2 VBG O2 Saturation VBG Base Excess Ionized Calcium Carbon Dioxide 17 mmol/L L mmol/L 18 mmol/L L mmol/L (21-32) (21-32) BUN 27 mg/dL H mg/dL (6-20) Creatinine 1.3 mg/dL H mg/dL 1.7 mg/dL H mg/dL (0.4-1.0) (0.4-1.0) Estimated GFR (MDRD) 40 L 29 L (>89) (>89) Glucose 154 mg/dL H mg/dL 119 mg/dL H mg/dL (70-100) (70-100) Calcium 7.4 mg/dL L mg/dL 7.9 mg/dL L mg/dL (8.5-10.3) (8.5-10.3) Iron % Saturation Ferritin Total Bilirubin 1.3 mg/dL H mg/dL (0.2-1.0) AST 1746 IU/L H IU/L (10-42) ALT 675 IU/L H IU/L (10-60) Lactate Dehydrogenase Total Creatine Kinase B-Natriuretic Peptide Total Protein 5.9 g/dL L g/dL 5.6 g/dL L g/dL (6.7-8.2) (6.7-8.2) Albumin 3.0 g/dL L g/dL (3.2-5.5) Lipase Vitamin B12 05/30/17 05/30/17 05/30/17 08:52 08:52 08:52 RBC 3.35 10^6/uL L 10^6/uL (4.20-5.40) Hgb Hct MCHC RDW Plt Count Neut # Lymph # PT INR VBG pH VBG pCO2 VBG pO2 VBG HCO3 VBG Total CO2 VBG O2 Saturation VBG Base Excess Ionized Calcium Carbon Dioxide BUN Creatinine Estimated GFR (MDRD) Glucose Calcium Iron 17 ug/dL L ug/dL (28-170) % Saturation 6 % L % (20-50) Ferritin Total Bilirubin AST ALT Lactate Dehydrogenase Total Creatine Kinase 930 IU/L H IU/L (22-269) B-Natriuretic Peptide Total Protein Albumin Lipase 17 U/L L U/L (22-51) Vitamin B12 05/30/17 05/30/17 05/30/17 08:52 08:52 08:52 RBC Hgb Hct MCHC RDW Plt Count Neut # Lymph # PT 16.6 secs H secs (9.9-12.6) INR 1.5 H (0.8-1.2) VBG pH VBG pCO2 VBG pO2 VBG HCO3 VBG Total CO2 VBG O2 Saturation VBG Base Excess Ionized Calcium Carbon Dioxide BUN Creatinine Estimated GFR (MDRD) Glucose Calcium Iron % Saturation Ferritin 880.8 ng/mL H ng/mL (11.0-306.8) Total Bilirubin AST ALT Lactate Dehydrogenase 2664 IU/L H IU/L (91-225) Total Creatine Kinase B-Natriuretic Peptide Total Protein Albumin Lipase Vitamin B12 5605 pg/mL H pg/mL (180-914) - EKG Results EKG Interpreted Independently: No - Diagnostic Imaging Results Diagnostic Imaging Results Comments: Ultrasound of Abdomen for Hepatic artery infarct: Impression pending - Additional Planning Condition/Complexity: Guarded My Orders: My Active Orders 05/29/17 11:47 ALPRAZolam [Xanax] 0.25 mg PO Q6HR PRN 05/29/17 12:30 EKG - Electrocardiogram [RC] .ONCE 05/30/17 08:19 NPO [DIET] 05/30/17 08:20 Abdomen Complete [US] Stat 05/30/17 08:52 HEPATITIS ACUTE PANEL W CONF [REFLAB] Stat 05/30/17 11:08 Lactulose [Enulose] 10 gm PO DAILY Consult/Specialty: OT, PT, Surgery Plan Discussed with:: Patient, Family, Case Management Time Spent: 31-60 minutes Additional Planning Notes: Patient is stable but has worsening liver failure related to alcohol abuse. she will need another 2 days stay until stable. Subjective - Subjective Patient Reports: Resting Comfortably, No Complaints, Fatigue, Other (patient is asking for water. no chest pain and improved shortness of breath) Nursing Reports: No Complaints Objective Vital Signs: Vital Signs - 24 hr 05/29/17 05/29/17 05/29/17 13:43 14:06 16:18 Temperature 36.9 C 36.9 C Heart Rate 118 H Heart Rate [ 122 H 120 H Brachial] Respiratory 14 18 16 Rate Blood Pressure [Right Brachial artery] Blood Pressure 116/66 125/63 [Right Radial artery] O2 Saturation 92 93 05/29/17 05/30/17 05/30/17 18:25 04:35 07:00 Temperature 37.1 C Heart Rate 114 H 111 H Heart Rate [ 121 H Brachial] Respiratory 18 18 20 Rate Blood Pressure [Right Brachial artery] Blood Pressure 127/57 L [Right Radial artery] O2 Saturation 93 05/30/17 07:55 Temperature 36.7 C Heart Rate Heart Rate [ 112 H Brachial] Respiratory 16 Rate Blood Pressure 124/53 L [Right Brachial artery] Blood Pressure [Right Radial artery] O2 Saturation 94 Oxygen O2 Source Nasal cannula I&O (Last 24 Hrs): Intake and Output Totals x24h 05/28/17 05/29/17 05/30/17 23:59 23:59 23:59 Intake Total 1050 1200 600 Output Total 320 700 Balance 730 500 600 General: Alert, Oriented x3, Cooperative HEENT: PERRLA Neck: No JVD, No thyromegaly Lymphatic: no adenopathy Neuro: Alert, Other (no slurring of speech. knows name and birthdate) Cardiovascular: Normal S1, Normal S2, No murmurs Respiratory: Chest non-tender, Rhonchi Abdomen: Soft, Other (tenderness to upper midepigastric abdomen.) Genitourinary: No Discharge Extremities: No clubbing, No cyanosis, No edema, Normal pulses, Other (raúl dry bandage on right hip) - Results Results: Laboratory Results WBC 5.9 x10^3/uL (4.8-10.8) 05/30/17 07:08 RBC 3.35 10^6/uL (4.20-5.40) L 05/30/17 08:52 Hgb 9.5 g/dL (12.0-16.0) L 05/30/17 07:08 Hct 30.2 % (37.0-47.0) L 05/30/17 07:08 MCV 90.3 fL (81.0-99.0) 05/30/17 07:08 MCH 28.5 pg (27.0-31.0) 05/30/17 07:08 MCHC 31.6 g/dL (32.0-36.0) L 05/30/17 07:08 RDW 17.2 % (12.0-15.0) H 05/30/17 07:08 Plt Count 112 10^3/uL (130-450) L 05/30/17 07:08 MPV 8.5 fL (7.9-10.8) 05/30/17 07:08 Reticulocyte % (Auto) 2.30 % (0.5-2.3) 05/30/17 08:52 Neut # 4.8 10^3/uL (1.5-6.6) 05/30/17 07:08 Lymph # 0.6 10^3/uL (1.5-3.5) L 05/30/17 07:08 Lewis # 0.5 10^3/uL (0.0-1.0) 05/30/17 07:08 Eos # 0.1 10^3/uL (0.0-0.7) 05/30/17 07:08 Baso # 0.0 10^3/uL (0.0-0.1) 05/30/17 07:08 Absolute Nucleated RBC 0.01 x10^3/uL 05/30/17 07:08 Nucleated RBCs 0.1 /100WBC 05/30/17 07:08 Absolute Retic 0.077 10^6/uL (0.020-0.110) 05/30/17 08:52 PT 16.6 secs (9.9-12.6) H 05/30/17 08:52 INR 1.5 (0.8-1.2) H 05/30/17 08:52 APTT 28.4 secs (24.9-33.3) 05/30/17 08:52 VBG pH 7.270 (7.31-7.41) L 05/28/17 23:00 VBG pCO2 38.7 mmHg (41-51) L 05/28/17 23:00 VBG pO2 76.9 mmHg (25-47) H 05/28/17 23:00 VBG HCO3 18.7 mmol/L (23-28) L 05/28/17 23:00 VBG Total CO2 19.9 mmol/L (24-29) L 05/28/17 23:00 VBG O2 Saturation 95.1 % (60-80) H 05/28/17 23:00 VBG Base Excess -7.0 mmol/L (-2 - +2) L 05/28/17 23:00 Ionized Calcium 1.05 mmol/L (1.15-1.33) L 05/28/17 23:00 Sodium 135 mmol/L (135-145) 05/30/17 07:08 Potassium 4.9 mmol/L (3.5-5.0) 05/30/17 07:08 Chloride 106 mmol/L (101-111) 05/30/17 07:08 Carbon Dioxide 18 mmol/L (21-32) L 05/30/17 07:08 Anion Gap 11.0 (6-13) 05/30/17 07:08 BUN 27 mg/dL (6-20) H 05/30/17 07:08 Creatinine 1.7 mg/dL (0.4-1.0) H 05/30/17 07:08 Estimated GFR (MDRD) 29 (>89) L 05/30/17 07:08 Glucose 119 mg/dL (70-100) H 05/30/17 07:08 Lactic Acid 1.3 mmol/L (0.5-2.2) 05/30/17 08:52 Calcium 7.9 mg/dL (8.5-10.3) L 05/30/17 07:08 Ionized Calcium YES 05/28/17 23:00 Phosphorus 3.3 mg/dL (2.5-4.6) 05/30/17 07:08 Magnesium 2.3 mg/dL (1.7-2.8) 05/30/17 07:08 Iron 17 ug/dL (28-170) L 05/30/17 08:52 TIBC 302 ug/dL (250-450) 05/30/17 08:52 % Saturation 6 % (20-50) L 05/30/17 08:52 Transferrin 216 mg/dL (192-382) 05/30/17 08:52 Ferritin 880.8 ng/mL (11.0-306.8) H 05/30/17 08:52 Total Bilirubin 1.3 mg/dL (0.2-1.0) H 05/30/17 07:08 GGT 21 IU/L (8-38) 05/30/17 08:52 AST 1746 IU/L (10-42) H 05/30/17 07:08 ALT 675 IU/L (10-60) H 05/30/17 07:08 Alkaline Phosphatase 91 IU/L (42-121) 05/30/17 07:08 Ammonia 13.9 umol/L (7-35) 05/30/17 11:25 Lactate Dehydrogenase 2664 IU/L (91-225) H 05/30/17 08:52 Total Creatine Kinase 930 IU/L (22-269) H 05/30/17 08:52 Troponin I 0.11 ng/mL (<0.49) 05/29/17 11:00 B-Natriuretic Peptide 243 pg/mL (5-100) H 05/28/17 23:00 Total Protein 5.6 g/dL (6.7-8.2) L 05/30/17 07:08 Albumin 3.0 g/dL (3.2-5.5) L 05/30/17 07:08 Globulin 2.6 g/dL (2.1-4.2) 05/30/17 07:08 Albumin/Globulin Ratio 1.2 (1.0-2.2) 05/30/17 07:08 Amylase 90 U/L (28-100) 05/30/17 08:52 Lipase 17 U/L (22-51) L 05/30/17 08:52 Vitamin B12 5605 pg/mL (180-914) H 05/30/17 08:52 TSH 0.76 uIU/mL (0.34-5.60) 05/27/17 02:25 Urine Color YELLOW 05/26/17 23:39 Urine Clarity CLEAR (CLEAR) 05/26/17 23:39 Urine pH 5.5 PH (5.0-7.5) 05/26/17 23:39 Ur Specific [place] 1.010 (1.002-1.030) 05/26/17 23:39 Urine Protein NEGATIVE mg/dL (NEGATIVE) 05/26/17 23:39 Urine Glucose (UA) NEGATIVE mg/dL (NEGATIVE) 05/26/17 23:39 Urine Ketones NEGATIVE mg/dL (NEGATIVE) 05/26/17 23:39 Urine Occult Blood NEGATIVE (NEGATIVE) 05/26/17 23:39 Urine Nitrite POSITIVE (NEGATIVE) H 05/26/17 23:39 Urine Bilirubin NEGATIVE (NEGATIVE) 05/26/17 23:39 Urine Urobilinogen 0.2 (NORMAL) E.U./dL (NORMAL) 05/26/17 23:39 Ur Leukocyte Esterase SMALL (NEGATIVE) H 05/26/17 23:39 Urine RBC 6-10 /HPF (0-5) H 05/26/17 23:39 Urine WBC >25 /HPF (0-5) H 05/26/17 23:39 Ur Squamous Epith Cells RARE Squamous (<= Few) 05/26/17 23:39 Urine Bacteria Moderate /HPF (None Seen) H 05/26/17 23:39 Ur Microscopic Review INDICATED 05/26/17 23:39 Urine Culture Comments INDICATED 05/26/17 23:39 Acetaminophen 16 ug/mL (10-30) 05/30/17 08:52 Ethyl Alcohol 5.4 mg/dL 05/30/17 08:52 Blood Type O POSITIVE 05/28/17 08:40 Antibody Screen NEGATIVE 05/28/17 08:40 - Procedures Procedures: Procedures OP RED-INT FIX RAD/ULNA (05/31/15)
[2017-05-30] MEDS: HYDROmorphone 1 MG/ML SYRINGE IVP PRN (14:35)
--- NOTE | 2017-05-30 14:54 | Ultrasound Report ---
EXAM: ABDOMEN ULTRASOUND EXAM DATE: 05/30/2017 11:16 AM. CLINICAL HISTORY: Elevated liver function tests with possible liver metastases. COMPARISON: Chest CT 05/29/2017. TECHNIQUE: Real-time scanning was performed with static images obtained. FINDINGS: Liver: Mildly increased in echotexture without focal lesion. 14.9 cm. Gallbladder: Moderately distended with gallbladder sludge without evidence of stones. Negative sonogr aphic Sibley sign. Biliary System: Common bile duct measures 6 mm. No intrahepatic or extrahepatic ductal dilatation. Pancreas: Mostly obscured by bowel gas without gross lesion. Kidneys: Right: 8.6 cm longitudinally. Mildly increased in echogenicity without hydronephrosis. 1.5 cm cyst. Left: 7.6 cm longitudinally. Mildly increased in echogenicity without focal lesion. Spleen: 8.1 cm. Normal in size and echotexture. Aorta and Inferior Vena Cava: Unremarkable. IMPRESSION: 1. Mildly increased echogenicity of the liver suggesting fatty infiltration without focal lesion. 2. Distended gallbladder with gallbladder sludge although without evidence of cholelithiasis or defin ite cholecystitis. 3. Increased echogenicity of the kidneys suggesting medical renal disease. [facility] Referring Provider Line: [phone] SITE ID: [id number]
[2017-05-30] MEDS: MORPHINE 2 MG/ML SYRINGE IVP PRN (21:50)
[2017-05-31] MEDS: oxyCODONE 5 MG TABLET PO PRN ×5 (01:43→17:31)
[2017-05-31 05:58] LABS: BASOPHILS # (AUTO) 0.1 10^3/uL (0.0-0.1); BASOPHILS % (AUTO) 0.9 %; EOSINOPHILS # (AUTO) 0.2 10^3/uL (0.0-0.7); EOSINOPHILS % (AUTO) 2.6 %; HCT - HEMATOCRIT 29.8 % (37.0-47.0); HGB - HEMOGLOBIN 9.6 g/dL (12.0-16.0); LYMPHOCYTES # (AUTO) 0.8 10^3/uL (1.5-3.5); LYMPHOCYTES % (AUTO) 12.7 %; MEAN CORPUSCULAR HEMOGLOBIN 29.3 pg (27.0-31.0); MEAN CORPUSCULAR HGB CONC 32.3 g/dL (32.0-36.0); MEAN CORPUSCULAR VOLUME 90.8 fL (81.0-99.0); MEAN PLATELET VOLUME 8.8 fL (7.9-10.8); MONOCYTES # (AUTO) 0.7 10^3/uL (0.0-1.0); NEUTROPHILS # (AUTO) 4.8 10^3/uL (1.5-6.6); NEUTROPHILS % (AUTO) 72.8 %; NUCLEATED RED BLOOD CELLS AUTO 0.8 /100WBC; RED BLOOD COUNT 3.28 10^6/uL (4.20-5.40); RED CELL DISTRIBUTION WIDTH 17.6 % (12.0-15.0); UNCORRECTED WHITE BLOOD COUNT 6.6 x10^3/uL; WHITE BLOOD COUNT 6.6 x10^3/uL (4.8-10.8)
[2017-05-31] MEDS: PANTOPRAZOLE 40 MG TABLET PO SCH (06:11)
[2017-05-31] MEDS: LEVOTHYROXINE 112 MCG TABLET PO SCH (06:11)
[2017-05-31] MEDS: SODIUM CHLORIDE FLUSH 0.9% 10 ML SYRINGE IVP SCH ×3 (06:12→21:53)
[2017-05-31 06:17] LABS: ALBUMIN/GLOBULIN RATIO 1.1 (1.0-2.2); BILIRUBIN,TOTAL 1.3 mg/dL (0.2-1.0); CALCIUM 8.2 mg/dL (8.5-10.3); CREATININE 1.2 mg/dL (0.4-1.0); MAGNESIUM 2.1 mg/dL (1.7-2.8); PHOSPHORUS 2.2 mg/dL (2.5-4.6); POTASSIUM 4.7 mmol/L (3.5-5.0); TOTAL PROTEIN 5.9 g/dL (6.7-8.2)
--- NOTE | 2017-05-31 07:42 | PROVIDER PROGRESS NOTE ---
Assessment/Plan - Problem List (1) Acute on chronic alcoholic liver disease Assessment/Plan: acute on chronic. liver enzymes are improving. patient is starting to eat today. she has no elevated ammonia levels. will continue on CIWA and DC banana bag (2) Alcohol dependence with physiological dependence, continuous Assessment/Plan: chronic. with etoh at admission. continue on CIWA and encourage ambulation and cessation. social work has been consulted regarding care after discharge (3) Acute respiratory failure with hypoxia Assessment/Plan: resolving. supplemental oxygen with RT if needed. room air at this time. (4) Subcapital fracture of right femur Assessment/Plan: resolving, continue with PT support and encourage ambulation. nursing told to get patient up and out of bed many times today (5) UTI (urinary tract infection) Qualifiers: Urinary tract infection type: site unspecified Hematuria presence: without hematuria Qualified Code(s): N39.0 - Urinary tract infection, site not specified Assessment/Plan: resolving. with ECOli bacteria. continue to monitor for fever and continue with appropriate antibiotic and monitor output and for elevations in white count (6) COPD (chronic obstructive pulmonary disease) Qualifiers: COPD type: unspecified COPD Qualified Code(s): J44.9 - Chronic obstructive pulmonary disease, unspecified (7) GERD (gastroesophageal reflux disease) Qualifiers: Esophagitis presence: without esophagitis Qualified Code(s): K21.9 - Gastro -esophageal reflux disease without esophagitis Assessment/Plan: chronic. continue with PPI and probiotic (8) Hypophosphatemia Assessment/Plan: acute. give neutraphos and monitor levels with daily lab draws - Current Meds Current Meds: Current Medications Generic Name Dose Route Start Last Admin Trade Name Freq PRN Reason Stop Dose Admin Albuterol/Ipratropium 3 ml 05/26/17 23:40 05/29/17 18:25 Duoneb INH 3 ml Q4HR PRN Administration Wheezing Cholecalciferol 5,000 unit 05/28/17 21:00 05/30/17 21:43 Vitamin D3 PO 5,000 unit BID RAJEEV Administration Enoxaparin Sodium 40 mg 05/28/17 09:00 05/30/17 12:30 Lovenox SUBQ 40 mg DAILY RAJEEV Administration Hydromorphone HCl 1 mg 05/28/17 11:40 05/30/17 14:35 Dilaudid Inj IVP 1 mg Q2HR PRN Administration Breakthrough Pain Levofloxacin 150 mls @ 100 mls/hr 05/29/17 08:00 05/29/17 09:24 Levaquin 750 Mg/150 Ml IV 100 mls/hr Q48H RAJEEV Administration Lactulose 10 gm 05/30/17 11:08 05/30/17 14:34 Enulose PO 10 gm DAILY RAJEEV Administration Levothyroxine Sodium 112 mcg 05/28/17 07:00 05/31/17 06:11 Synthroid PO 112 mcg QDAC RAJEEV Administration Morphine Sulfate 2 mg 05/26/17 23:40 05/30/17 21:50 Morphine IVP 2 mg Q2HR PRN Administration Pain 8 to 10 Oxycodone HCl 5 mg 05/30/17 23:14 05/31/17 06:10 Roxicodone PO 5 mg Q4HR PRN Administration PAIN Oxycodone HCl 10 mg 05/30/17 23:14 05/31/17 01:43 Roxicodone PO 10 mg Q4HR PRN Administration PAIN Pantoprazole Sodium 40 mg 05/27/17 07:00 05/31/17 06:11 Protonix PO 40 mg QDAC RAJEEV Administration Polyethylene Glycol 17 gm 05/27/17 09:00 05/30/17 12:18 Miralax PO Not Given DAILY RAJEEV Sodium Chloride 10 ml 05/28/17 11:40 05/30/17 12:31 Normal Saline Flush 0.9% IVP 10 ml PRN PRN Administration NEEDED PER PROVIDER ORDERS Sodium Chloride 10 ml 05/28/17 14:00 05/31/17 06:12 Normal Saline Flush 0.9% IVP 10 ml Q8HR RAJEEV Administration Venlafaxine HCl 75 mg 05/27/17 03:00 05/30/17 21:44 Effexor Er PO 75 mg BID RAJEEV Administration - Lab Result Lab results reviewed: Yes Fish Bone Diagrams: 05/31/17 05:30 05/31/17 05:30 Other Lab Results: Abnormal Lab Results 05/30/17 05/30/17 05/30/17 07:08 07:08 08:52 RBC 3.35 10^6/uL L 10^6/uL (4.20-5.40) Hgb 9.5 g/dL L g/dL (12.0-16.0) Hct 30.2 % L % (37.0-47.0) MCHC 31.6 g/dL L g/dL (32.0-36.0) RDW 17.2 % H % (12.0-15.0) Plt Count 112 10^3/uL L 10^3/uL (130-450) Lymph # 0.6 10^3/uL L 10^3/uL (1.5-3.5) PT INR Carbon Dioxide 18 mmol/L L mmol/L (21-32) BUN 27 mg/dL H mg/dL (6-20) Creatinine 1.7 mg/dL H mg/dL (0.4-1.0) Estimated GFR (MDRD) 29 L (>89) Glucose 119 mg/dL H mg/dL (70-100) Calcium 7.9 mg/dL L mg/dL (8.5-10.3) Phosphorus Iron % Saturation Ferritin Total Bilirubin 1.3 mg/dL H mg/dL (0.2-1.0) AST 1746 IU/L H IU/L (10-42) ALT 675 IU/L H IU/L (10-60) Lactate Dehydrogenase Total Creatine Kinase 930 IU/L H IU/L (22-269) Total Protein 5.6 g/dL L g/dL (6.7-8.2) Albumin 3.0 g/dL L g/dL (3.2-5.5) Lipase 17 U/L L U/L (22-51) Vitamin B12 05/30/17 05/30/17 05/30/17 08:52 08:52 08:52 RBC 3.35 10^6/uL L 10^6/uL (4.20-5.40) Hgb Hct MCHC RDW Plt Count Lymph # PT INR Carbon Dioxide BUN Creatinine Estimated GFR (MDRD) Glucose Calcium Phosphorus Iron 17 ug/dL L ug/dL (28-170) % Saturation 6 % L % (20-50) Ferritin 880.8 ng/mL H ng/mL (11.0-306.8) Total Bilirubin AST ALT Lactate Dehydrogenase Total Creatine Kinase Total Protein Albumin Lipase Vitamin B12 5605 pg/mL H pg/mL (180-914) 05/30/17 05/30/17 05/31/17 08:52 08:52 05:30 RBC 3.28 10^6/uL L 10^6/uL (4.20-5.40) Hgb 9.6 g/dL L g/dL (12.0-16.0) Hct 29.8 % L % (37.0-47.0) MCHC RDW 17.6 % H % (12.0-15.0) Plt Count Lymph # 0.8 10^3/uL L 10^3/uL (1.5-3.5) PT 16.6 secs H secs (9.9-12.6) INR 1.5 H (0.8-1.2) Carbon Dioxide BUN Creatinine Estimated GFR (MDRD) Glucose Calcium Phosphorus Iron % Saturation Ferritin Total Bilirubin AST ALT Lactate Dehydrogenase 2664 IU/L H IU/L (91-225) Total Creatine Kinase Total Protein Albumin Lipase Vitamin B12 05/31/17 05:30 RBC Hgb Hct MCHC RDW Plt Count Lymph # PT INR Carbon Dioxide 16 mmol/L L mmol/L (21-32) BUN 27 mg/dL H mg/dL (6-20) Creatinine 1.2 mg/dL H mg/dL (0.4-1.0) Estimated GFR (MDRD) 44 L (>89) Glucose Calcium 8.2 mg/dL L mg/dL (8.5-10.3) Phosphorus 2.2 mg/dL L mg/dL (2.5-4.6) Iron % Saturation Ferritin Total Bilirubin 1.3 mg/dL H mg/dL (0.2-1.0) AST 893 IU/L H IU/L (10-42) ALT 455 IU/L H IU/L (10-60) Lactate Dehydrogenase Total Creatine Kinase Total Protein 5.9 g/dL L g/dL (6.7-8.2) Albumin 3.1 g/dL L g/dL (3.2-5.5) Lipase Vitamin B12 - EKG Results EKG Interpreted Independently: No - Additional Planning Condition/Complexity: Improved My Orders: My Active Orders 05/30/17 08:52 HEPATITIS ACUTE PANEL W CONF [REFLAB] Stat 05/30/17 11:08 Lactulose [Enulose] 10 gm PO DAILY 05/30/17 Lunch Carb-controlled Diet [DIET] 05/31/17 08:00 Neutra-Phos [K-Phos Neutral] 250 mg PO TIDWM Consult/Specialty: OT, PT, Surgery Plan Discussed with:: Patient, Family, Case Management Time Spent: 31-60 minutes Subjective - Subjective Patient Reports: Resting Comfortably, Other (no complaints except that she is thirsty) Nursing Reports: Confused Objective Vital Signs: Vital Signs - 24 hr 05/30/17 05/30/17 05/30/17 07:55 15:48 20:13 Temperature 36.7 C 36.9 C 36.9 C Heart Rate [ 112 H 110 H 111 H Brachial] Respiratory 16 18 18 Rate Blood Pressure 124/53 L 140/71 H [Right Brachial artery] Blood Pressure 106/58 L [Right Radial artery] O2 Saturation 94 95 95 05/31/17 00:28 Temperature 36.7 C Heart Rate [ 111 H Brachial] Respiratory 16 Rate Blood Pressure 151/80 H [Right Brachial artery] Blood Pressure [Right Radial artery] O2 Saturation 94 Oxygen O2 Source Nasal cannula I&O (Last 24 Hrs): Intake and Output Totals x24h 05/29/17 05/30/17 05/31/17 23:59 23:59 23:59 Intake Total 1200 1917 260 Output Total 700 Balance 500 1917 260 General: Alert HEENT: PERRLA Neck: Supple, No JVD, No thyromegaly Lymphatic: no adenopathy Neuro: Alert Cardiovascular: Normal S1, Normal S2 Respiratory: Chest non-tender, No respiratory distress Abdomen: Soft, No tenderness Genitourinary: No Bleeding Extremities: No clubbing, No cyanosis, No edema, Normal pulses, Other ( tenderness to right hip with palpation) Skin: No rashes, No breakdown, No significant lesion - Results Results: Laboratory Results WBC 6.6 x10^3/uL (4.8-10.8) 05/31/17 05:30 RBC 3.28 10^6/uL (4.20-5.40) L 05/31/17 05:30 Hgb 9.6 g/dL (12.0-16.0) L 05/31/17 05:30 Hct 29.8 % (37.0-47.0) L 05/31/17 05:30 MCV 90.8 fL (81.0-99.0) 05/31/17 05:30 MCH 29.3 pg (27.0-31.0) 05/31/17 05:30 MCHC 32.3 g/dL (32.0-36.0) 05/31/17 05:30 RDW 17.6 % (12.0-15.0) H 05/31/17 05:30 Plt Count 130 10^3/uL (130-450) 05/31/17 05:30 MPV 8.8 fL (7.9-10.8) 05/31/17 05:30 Reticulocyte % (Auto) 2.30 % (0.5-2.3) 05/30/17 08:52 Neut # 4.8 10^3/uL (1.5-6.6) 05/31/17 05:30 Lymph # 0.8 10^3/uL (1.5-3.5) L 05/31/17 05:30 [place] # 0.7 10^3/uL (0.0-1.0) 05/31/17 05:30 Eos # 0.2 10^3/uL (0.0-0.7) 05/31/17 05:30 Baso # 0.1 10^3/uL (0.0-0.1) 05/31/17 05:30 Absolute Nucleated RBC 0.05 x10^3/uL 05/31/17 05:30 Nucleated RBCs 0.8 /100WBC 05/31/17 05:30 Absolute Retic 0.077 10^6/uL (0.020-0.110) 05/30/17 08:52 PT 16.6 secs (9.9-12.6) H 05/30/17 08:52 INR 1.5 (0.8-1.2) H 05/30/17 08:52 APTT 28.4 secs (24.9-33.3) 05/30/17 08:52 VBG pH 7.270 (7.31-7.41) L 05/28/17 23:00 VBG pCO2 38.7 mmHg (41-51) L 05/28/17 23:00 VBG pO2 76.9 mmHg (25-47) H 05/28/17 23:00 VBG HCO3 18.7 mmol/L (23-28) L 05/28/17 23:00 VBG Total CO2 19.9 mmol/L (24-29) L 05/28/17 23:00 VBG O2 Saturation 95.1 % (60-80) H 05/28/17 23:00 VBG Base Excess -7.0 mmol/L (-2 - +2) L 05/28/17 23:00 Ionized Calcium 1.05 mmol/L (1.15-1.33) L 05/28/17 23:00 Sodium 135 mmol/L (135-145) 05/31/17 05:30 Potassium 4.7 mmol/L (3.5-5.0) 05/31/17 05:30 Chloride 106 mmol/L (101-111) 05/31/17 05:30 Carbon Dioxide 16 mmol/L (21-32) L 05/31/17 05:30 Anion Gap 13.0 (6-13) 05/31/17 05:30 BUN 27 mg/dL (6-20) H 05/31/17 05:30 Creatinine 1.2 mg/dL (0.4-1.0) H 05/31/17 05:30 Estimated GFR (MDRD) 44 (>89) L 05/31/17 05:30 Glucose 92 mg/dL (70-100) 05/31/17 05:30 Lactic Acid 1.3 mmol/L (0.5-2.2) 05/30/17 08:52 Calcium 8.2 mg/dL (8.5-10.3) L 05/31/17 05:30 Ionized Calcium YES 05/28/17 23:00 Phosphorus 2.2 mg/dL (2.5-4.6) L 05/31/17 05:30 Magnesium 2.1 mg/dL (1.7-2.8) 05/31/17 05:30 Iron 17 ug/dL (28-170) L 05/30/17 08:52 TIBC 302 ug/dL (250-450) 05/30/17 08:52 % Saturation 6 % (20-50) L 05/30/17 08:52 Transferrin 216 mg/dL (192-382) 05/30/17 08:52 Ferritin 880.8 ng/mL (11.0-306.8) H 05/30/17 08:52 Total Bilirubin 1.3 mg/dL (0.2-1.0) H 05/31/17 05:30 GGT 21 IU/L (8-38) 05/30/17 08:52 AST 893 IU/L (10-42) H 05/31/17 05:30 ALT 455 IU/L (10-60) H 05/31/17 05:30 Alkaline Phosphatase 103 IU/L (42-121) 05/31/17 05:30 Ammonia 13.9 umol/L (7-35) 05/30/17 11:25 Lactate Dehydrogenase 2664 IU/L (91-225) H 05/30/17 08:52 Total Creatine Kinase 930 IU/L (22-269) H 05/30/17 08:52 Troponin I 0.11 ng/mL (<0.49) 05/29/17 11:00 B-Natriuretic Peptide 243 pg/mL (5-100) H 05/28/17 23:00 Total Protein 5.9 g/dL (6.7-8.2) L 05/31/17 05:30 Albumin 3.1 g/dL (3.2-5.5) L 05/31/17 05:30 Globulin 2.8 g/dL (2.1-4.2) 05/31/17 05:30 Albumin/Globulin Ratio 1.1 (1.0-2.2) 05/31/17 05:30 Amylase 90 U/L (28-100) 05/30/17 08:52 Lipase 17 U/L (22-51) L 05/30/17 08:52 Vitamin B12 5605 pg/mL (180-914) H 05/30/17 08:52 TSH 0.76 uIU/mL (0.34-5.60) 05/27/17 02:25 Urine Color YELLOW 05/26/17 23:39 Urine Clarity CLEAR (CLEAR) 05/26/17 23:39 Urine pH 5.5 PH (5.0-7.5) 05/26/17 23:39 Ur Specific [place] 1.010 (1.002-1.030) 05/26/17 23:39 Urine Protein NEGATIVE mg/dL (NEGATIVE) 05/26/17 23:39 Urine Glucose (UA) NEGATIVE mg/dL (NEGATIVE) 05/26/17 23:39 Urine Ketones NEGATIVE mg/dL (NEGATIVE) 05/26/17 23:39 Urine Occult Blood NEGATIVE (NEGATIVE) 05/26/17 23:39 Urine Nitrite POSITIVE (NEGATIVE) H 05/26/17 23:39 Urine Bilirubin NEGATIVE (NEGATIVE) 05/26/17 23:39 Urine Urobilinogen 0.2 (NORMAL) E.U./dL (NORMAL) 05/26/17 23:39 Ur Leukocyte Esterase SMALL (NEGATIVE) H 05/26/17 23:39 Urine RBC 6-10 /HPF (0-5) H 05/26/17 23:39 Urine WBC >25 /HPF (0-5) H 05/26/17 23:39 Ur Squamous Epith Cells RARE Squamous (<= Few) 05/26/17 23:39 Urine Bacteria Moderate /HPF (None Seen) H 05/26/17 23:39 Ur Microscopic Review INDICATED 05/26/17 23:39 Urine Culture Comments INDICATED 05/26/17 23:39 Acetaminophen 16 ug/mL (10-30) 05/30/17 08:52 Ethyl Alcohol 5.4 mg/dL 05/30/17 08:52 Blood Type O POSITIVE 05/28/17 08:40 Antibody Screen NEGATIVE 05/28/17 08:40 - Procedures Procedures: Procedures OP RED-INT FIX RAD/ULNA (05/31/15)
[2017-05-31] MEDS: IPRATROPIUM/ALBUTEROL 3 ML NEB INH PRN ×2 (08:12→15:30)
[2017-05-31] MEDS: CHOLECALCIFEROL 5,000 UNIT CAPSULE PO SCH ×2 (08:59→21:53)
[2017-05-31] MEDS: POLYETHYLENE GLYCOL 3350 17 GM PACKET PO SCH (08:59)
[2017-05-31] MEDS: LACTULOSE 10 GM /15 ML UDC PO SCH (09:00)
[2017-05-31] MEDS: ENOXAPARIN 40 MG/0.4 ML SYRINGE SUBQ SCH (09:01)
[2017-05-31] MEDS ORDERED: NEUTRA-PHOS 250 MG TABLET ONE (09:09)
[2017-05-31] MEDS ORDERED: SODIUM CHLORIDE FLUSH 0.9% 10 ML SYRINGE IVP ONE (09:09)
[2017-05-31] MEDS: VENLAFAXINE ER 75 MG CAPSULE PO SCH ×2 (09:10→21:53)
[2017-05-31] MEDS: NEUTRA-PHOS 250 MG TABLET PO SCH ×3 (09:10→17:22)
[2017-05-31] MEDS: SODIUM CHLORIDE FLUSH 0.9% 10 ML SYRINGE IVP PRN (09:10)
[2017-06-01] MEDS: oxyCODONE 5 MG TABLET PO PRN ×2 (00:45→14:13)
[2017-06-01] MEDS: IPRATROPIUM/ALBUTEROL 3 ML NEB INH PRN ×2 (00:47→07:50)
[2017-06-01 05:59] LABS: BASOPHILS % (AUTO) 0.6 %; EOSINOPHILS # (AUTO) 0.2 10^3/uL (0.0-0.7); EOSINOPHILS % (AUTO) 2.9 %; HCT - HEMATOCRIT 30.2 % (37.0-47.0); HGB - HEMOGLOBIN 9.7 g/dL (12.0-16.0); LYMPHOCYTES # (AUTO) 0.7 10^3/uL (1.5-3.5); LYMPHOCYTES % (AUTO) 11.7 %; MEAN CORPUSCULAR HGB CONC 32.2 g/dL (32.0-36.0); MEAN PLATELET VOLUME 8.5 fL (7.9-10.8); MONOCYTES # (AUTO) 0.9 10^3/uL (0.0-1.0); NEUTROPHILS # (AUTO) 4.4 10^3/uL (1.5-6.6); NEUTROPHILS % (AUTO) 70.8 %; NUCLEATED RED BLOOD CELLS AUTO 0.1 /100WBC; RED BLOOD COUNT 3.35 10^6/uL (4.20-5.40); RED CELL DISTRIBUTION WIDTH 17.9 % (12.0-15.0); UNCORRECTED WHITE BLOOD COUNT 6.2 x10^3/uL; WHITE BLOOD COUNT 6.2 x10^3/uL (4.8-10.8)
[2017-06-01 06:13] LABS: BILIRUBIN,TOTAL 0.9 mg/dL (0.2-1.0); CALCIUM 8.1 mg/dL (8.5-10.3); CREATININE 1.1 mg/dL (0.4-1.0); MAGNESIUM 2.1 mg/dL (1.7-2.8); POTASSIUM 4.1 mmol/L (3.5-5.0); TOTAL PROTEIN 6.1 g/dL (6.7-8.2)
[2017-06-01] MEDS: PANTOPRAZOLE 40 MG TABLET PO SCH (06:52)
[2017-06-01] MEDS: LEVOTHYROXINE 112 MCG TABLET PO SCH (06:52)
[2017-06-01] MEDS: SODIUM CHLORIDE FLUSH 0.9% 10 ML SYRINGE IVP SCH ×2 (07:01→14:41)
--- NOTE | 2017-06-01 08:30 | XRAY Report ---
TWO-VIEW RIGHT HIP: 05/28/2017 CLINICAL INDICATION: Postop. FINDINGS: Frontal and crosstable lateral views of the right hip and pelvis demonstrate a right hip r eplacement in place. There is no evidence of acute fracture or hardware complication. Subcutaneous gas is seen. IMPRESSION: EXPECTED POSTOPERATIVE APPEARANCE OF RIGHT HIP REPLACEMENT. JOB #: [id number] EXT JOB #:[id number]
[2017-06-01] MEDS: VENLAFAXINE ER 75 MG CAPSULE PO SCH (08:37)
[2017-06-01] MEDS: NEUTRA-PHOS 250 MG TABLET PO SCH ×2 (08:37→11:29)
[2017-06-01] MEDS: LACTULOSE 10 GM /15 ML UDC PO SCH (08:38)
[2017-06-01] MEDS: POLYETHYLENE GLYCOL 3350 17 GM PACKET PO SCH (08:38)
[2017-06-01] MEDS: ENOXAPARIN 40 MG/0.4 ML SYRINGE SUBQ SCH (08:38)
[2017-06-01] MEDS: CHOLECALCIFEROL 5,000 UNIT CAPSULE PO SCH (08:38)
[2017-06-01] MEDS ORDERED: LACTULOSE 10 GM /15 ML UDC PO SCH (09:00)
[2017-06-01] MEDS ORDERED: levoFLOXacin 250 MG TABLET PO SCH (09:00)
--- NOTE | 2017-06-01 09:29 | Discharge Plan ---
Discharge Plan Disposition: [facility] DC/Xfer Condition: Stable Prescriptions: Venlafaxine ER [Effexor ER] 75 mg PO BID #10 capsule Saccharomyces Boulardii [Florastor] 250 mg PO DAILY #15 capsule levoFLOXacin [Levaquin] 500 mg PO DAILY #3 tablet Cholecalciferol [Vitamin D3] 5,000 unit PO BID #30 capsule Diet: Cardiac Activity Restrictions: Activity as Tolerated Shower Restrictions: No Driving Restrictions: No Assistance Devices: Walker, Cane Weight Bearing: Full Weight Instruction Topics: Levofloxacin tablets, Hip Safety Master Daily Tasks, Fx Hip Surg Home Recovery Additional Instructions or Follow Up instructions: Continue to take all home medications as prescribed. You have been given an antibiotic for urinary tract infection. take all the antibiotic as prescribed. Continue with eating a cardiac diet with low fat diet. drink more water in the day. NO ALCOHOL. avoid soda and limit caffeine Please get at least 7-8 hours of sleep nightly. frequent rests during the day are recommended. Please get daily exercise. walking is best throughout the day. Please return to the ER if you have chest pain or shortness of breath. You need to use your walker when ambulating. No Smoking: If you smoke, Please STOP! Call for help. Follow-up with: Kathleen Osborn MD [Primary Care Provider] -
--- NOTE | 2017-06-01 13:36 | DISCHARGE SUMMARY ---
"Discharge Summary Admit Date: 05/26/17 Discharge Date: 06/01/17 Discharging Provider: Kathleen Carrington APRN Code Status: Attempt Resuscitation Condition at Discharge: Stable Discharge Disposition: SNF DC/Xfer Discharge Facility Name: [facility] - DIAGNOSES Admission Diagnoses: 1. acute ground level fall with right intracapsular fracture of femur 2. Acute UTI unspecified bacteria 3. Acute on chronic alcohol abuse with dependence 4..GERD 5. COPD Discharge Diagnoses with Status of Each Condition: 1. Acute ground level fall with right intracapsular fracture of femur with total right arthroplasty 2. Acute UTI with E Coli bacterial organism 3. Acute on chronic alcohol abuse with dependence 4..GERD 5. COPD without exacerbation 6. Acute respiratory failure with hypoxia 7. acute transminitis with shock liver secondary to alcohol abuse and dependence - HPI History of Present Illness: Patient is a 76 year old female with a past medical history of alcohol abuse, chronic respiratory failure with hypoxia on 2L of home O2 but non compliant likely due to COPD, GERD, hypothyroidism, chronic fatigue syndrome, insomnia and IBS who presented to the ED with complaint of right hip pain after a fall. Patients states she lives alone in an apartment and was going down the stairs when she states she lost her balance and fell with all her weight onto her right side. She states she did not lose consciousness. She states she has poor balance and has fallen before. She has a cane at home but does not use it. She drinks daily had consumed some alcohol before her fall today. She states that after falling she could not get up and was in excruciating pain. She does state that she felt weak today but denies any fevers or chills. She denies any new cough or shortness of breath. She denies any chest pain. She denies any urinary symptoms. She does state she is nauseated in the ED and did vomit. She denies any abdominal pain. On presentation to the ED the patient was in obvious pain, she was tachycardic and hypertensive and her right leg was externally rotated and shortened. X ray of her right hip showed an acute subcapital right femoral next fracture. Orthopedics was called and they asked that the Hospitalist team admit the patient and that they would see her in consult in the morning. - CONSULTS | PROCEDURES Consultations: surgery for hip arthroplasty Procedures: total right hip arthroplasty - HOSPITAL COURSE Hospital Course: Patient is a 76 year old female with a past medical history of alcohol abuse, chronic respiratory failure with hypoxia on 2L of home O2 but non compliant likely due to COPD, GERD, hypothyroidism, chronic fatigue syndrome, insomnia and IBS who presented to the ED with complaint of right hip pain after a fall. Patient was admitted and treated for urinary tract infection with consult with ortho and Dr Barragan for right hip fracture and pending hip arthroplasty. Patient was started on Rocephin for UTI and urine cultures grew out E Coli. She had a oakley placed for UTI and bucks traction for right hip fracture prior to surgery. She was started on CIWA protocol for alcohol usage and abuse with dependence and given Ativan as needed for withdrawal. She continued on thyroid medications for hypothyroidism. She continue on PPI for GERD. She continued on oxygen therapy and duoneb treatments for COPD. After surgery patient went into respiratory failure, likely due to alcohol usage and COPD and needed nonrebreather and closer monitoring in the PACU. She had elevation in her liver enzymes with shock liver from the hypoxia and surgery. Her liver enzymes improved the next day and respiratory status improved. Since patient had nausea on admission, zofran was given. She worked with PT and OT to assist with ambulation daily. Nursing and PT had a difficult time getting patient out of bed and had to encourage her daily. She had some mild electrolyte imbalances that were repleted with both IV and oral supplements. On day of discharge, patient was constipated due to the IV and oral pain medications given and she needed lactulose and stool softeners to aid in defacation. Patient did have a large BM prior to discharge. Patient was accepted to [facility] for SNF and rehab - ALLERGIES Allergies/Adverse Reactions: Allergies Allergy/AdvReac Type Severity Reaction Status Date / Time Penicillins Allergy Unknown Unknown Verified 05/26/17 21:12 - MEDICATIONS Home Medications: Ambulatory Orders Medication Instructions Recorded Confirmed Omeprazole [Prilosec] 20 mg PO BID 04/01/13 05/27/17 Dicyclomine HCl 10 mg PO BID 05/27/17 05/27/17 Levothyroxine Sodium 137 mcg PO QDAC 05/27/17 05/27/17 Melatonin 5 mg PO QPM 05/27/17 05/27/17 diphenhydrAMINE [Benadryl] 25 mg PO DAILY PRN 05/27/17 05/27/17 Bisacodyl Supp [Dulcolax Supp] 10 mg MA Q12H PRN #0 supp 06/01/17 Cholecalciferol [Vitamin D3] 5,000 unit PO BID #30 capsule 06/01/17 Neutra-Phos [K-Phos Neutral] 250 mg PO TIDWM tablet 06/01/17 Polyethylene Glycol 3350 [Miralax] 17 gm PO DAILY packet 06/01/17 Saccharomyces Boulardii [Florastor] 250 mg PO DAILY #15 capsule 06/01/17 Senna [Senokot] 17.2 mg PO Q12H PRN #0 tablet 06/01/17 Venlafaxine ER [Effexor ER] 75 mg PO BID #10 capsule 06/01/17 levoFLOXacin [Levaquin] 500 mg PO DAILY #3 tablet 06/01/17 - PHYSICAL EXAM AT DISCHARGE General Appearance: positive: No acute distress, Alert Eyes Bilateral: positive: Normal inspection, PERRL, EOMI ENT: positive: ENT inspection nml, Pharynx nml, No signs of dehydration Neck: positive: Nml inspection, Thyroid nml, No JVD, Trachea midline Respiratory: positive: Chest non-tender, No respiratory distress, Other ( diminished breath sounds) Cardiovascular: positive: Regular rate & rhythm, No murmur, No gallop Peripheral Pulses: positive: 2+ Abdomen: positive: Non-tender, No organomegaly, Nml bowel sounds, No distention Back: positive: Nml inspection. negative: CVA tenderness (R), CVA tenderness (L ) Skin: positive: Color nml, No rash, Warm, Dry Extremities: positive: Full ROM, Other (pain to right hip with palpation, gait steady with wheelchair). negative: Pedal edema, Calf tenderness Neurologic/Psychiatric: positive: Sensation nml, Disoriented to time, Weakness Physical Exam Other/Comments: Last Vital Signs Temp 36.6 C 06/01/17 08:08 Pulse 115 H 06/01/17 08:08 Resp 18 06/01/17 08:08 BP 147/68 H 06/01/17 08:08 Pulse Ox 94 06/01/17 08:08 Allergies Penicillins Allergy (Unknown, Verified 05/26/17 21:12) Unknown occurred when patient was 2 y.o. and not sure nature of reaction Active Medications Albuterol/Ipratropium (Duoneb) 3 ml INH Q4HR PRN PRN Reason: Wheezing Last Admin: 06/01/17 07:50 Dose: 3 ml Albuterol/Ipratropium (Duoneb) 3 ml INH RTQID PRN PRN Reason: Shortness of Air/Wheezing Last Admin: 05/31/17 15:30 Dose: 3 ml Alprazolam (Xanax) 0.25 mg PO Q6HR PRN PRN Reason: Anxiety Bisacodyl (Dulcolax Supp) 10 mg MA Q12H PRN PRN Reason: Constipation Last Admin: 06/01/17 06:53 Dose: 10 mg Bisacodyl (Dulcolax) 10 mg PO Q12H PRN PRN Reason: Constipation Cholecalciferol (Vitamin D3) 5,000 unit PO BID [facility] Last Admin: 06/01/17 08:38 Dose: 5,000 unit Diphenhydramine HCl (Benadryl) 25 mg PO Q6H PRN PRN Reason: ITCHING Docusate Sodium (Colace 100mg Capsule) 100 mg PO BID PRN PRN Reason: Constipation Enoxaparin Sodium (Lovenox) 40 mg SUBQ DAILY [facility] Last Admin: 06/01/17 08:38 Dose: 40 mg Lactulose (Enulose) 10 gm PO DAILY [facility] Last Admin: 06/01/17 08:38 Dose: Not Given Lactulose (Enulose) 30 gm PO DAILY [facility] Last Admin: 06/01/17 09:18 Dose: Not Given Levofloxacin (Levaquin) 500 mg PO DAILY [facility] Last Admin: 06/01/17 08:37 Dose: 500 mg Levothyroxine Sodium (Synthroid) 112 mcg PO QDAC [facility] Last Admin: 06/01/17 06:52 Dose: 112 mcg Oxycodone HCl (Roxicodone) 5 mg PO Q4HR PRN PRN Reason: PAIN Last Admin: 06/01/17 00:45 Dose: 5 mg Oxycodone HCl (Roxicodone) 10 mg PO Q4HR PRN PRN Reason: PAIN Last Admin: 05/31/17 17:31 Dose: 5 mg Pantoprazole Sodium (Protonix) 40 mg PO QDAC [facility] Last Admin: 06/01/17 06:52 Dose: 40 mg Polyethylene Glycol (Miralax) 17 gm PO DAILY [facility] Last Admin: 06/01/17 08:38 Dose: Not Given Senna (Senokot) 17.2 mg PO Q12H PRN PRN Reason: Constipation Sodium Chloride (Normal Saline Flush 0.9%) 10 ml IVP PRN PRN PRN Reason: NEEDED PER PROVIDER ORDERS Last Admin: 05/31/17 09:10 Dose: 10 ml Sodium Chloride (Normal Saline Flush 0.9%) 10 ml IVP Q8HR [facility] Last Admin: 06/01/17 07:01 Dose: 10 ml Sodium Phosphate (K-Phos Neutral) 250 mg PO TIDWM [facility] Last Admin: 06/01/17 11:29 Dose: 250 mg Venlafaxine HCl (Effexor Er) 75 mg PO BID [facility] Last Admin: 06/01/17 08:37 Dose: 75 mg Intake & Output 05/31/17 06/01/17 23:59 23:59 Intake Total 910 480 Balance 910 480 Orders 06/01/17 09:00 Lactulose [Enulose] 30 gm PO DAILY levoFLOXacin [Levaquin] 500 mg PO DAILY 06/01/17 13:14 Discharge [] .ONCE Lab Tests 05/30/17 06/01/17 06/01/17 08:52 05:12 05:12 WBC 6.2 RBC 3.35 L Hgb 9.7 L Hct 30.2 L MCV 90.0 MCH 29.0 MCHC 32.2 RDW 17.9 H Plt Count 128 L MPV 8.5 Neut # 4.4 Lymph # 0.7 L [place] # 0.9 Eos # 0.2 Baso # 0.0 Absolute Nucleated RBC 0.01 Nucleated RBCs 0.1 Sodium 137 Potassium 4.1 Chloride 107 Carbon Dioxide 20 L Anion Gap 10.0 BUN 27 H Creatinine 1.1 H Estimated GFR (MDRD) 48 L Glucose 96 Calcium 8.1 L Magnesium 2.1 Total Bilirubin 0.9 AST 781 H ALT 500 H Alkaline Phosphatase 101 Total Protein 6.1 L Albumin 3.0 L Globulin 3.1 Albumin/Globulin Ratio 1.0 Hepatitis A IgM Ab NON-REACTIVE Hep Bs Antigen NON-REACTIVE Hep B Core IgM Ab NON-REACTIVE Hepatitis C Antibody NON-REACTIVE Hep C Ab Signal/Cutoff 0.00 - LABS Result Diagrams: 06/01/17 05:12 06/01/17 05:12 Other Lab Results: Abnormal Lab Results 05/31/17 05/31/17 06/01/17 05:30 05:30 05:12 RBC 3.28 10^6/uL L 10^6/uL 3.35 10^6/uL L 10^6/uL (4.20-5.40) (4.20-5.40) Hgb 9.6 g/dL L g/dL 9.7 g/dL L g/dL (12.0-16.0) (12.0-16.0) Hct 29.8 % L % 30.2 % L % (37.0-47.0) (37.0-47.0) RDW 17.6 % H % 17.9 % H % (12.0-15.0) (12.0-15.0) Plt Count 128 10^3/uL L 10^3/uL (130-450) Lymph # 0.8 10^3/uL L 10^3/uL 0.7 10^3/uL L 10^3/uL (1.5-3.5) (1.5-3.5) Carbon Dioxide 16 mmol/L L mmol/L (21-32) BUN 27 mg/dL H mg/dL (6-20) Creatinine 1.2 mg/dL H mg/dL (0.4-1.0) Estimated GFR (MDRD) 44 L (>89) Calcium 8.2 mg/dL L mg/dL (8.5-10.3) Phosphorus 2.2 mg/dL L mg/dL (2.5-4.6) Total Bilirubin 1.3 mg/dL H mg/dL (0.2-1.0) AST 893 IU/L H IU/L (10-42) ALT 455 IU/L H IU/L (10-60) Total Protein 5.9 g/dL L g/dL (6.7-8.2) Albumin 3.1 g/dL L g/dL (3.2-5.5) 06/01/17 05:12 RBC Hgb Hct RDW Plt Count Lymph # Carbon Dioxide 20 mmol/L L mmol/L (21-32) BUN 27 mg/dL H mg/dL (6-20) Creatinine 1.1 mg/dL H mg/dL (0.4-1.0) Estimated GFR (MDRD) 48 L (>89) Calcium 8.1 mg/dL L mg/dL (8.5-10.3) Phosphorus Total Bilirubin AST 781 IU/L H IU/L (10-42) ALT 500 IU/L H IU/L (10-60) Total Protein 6.1 g/dL L g/dL (6.7-8.2) Albumin 3.0 g/dL L g/dL (3.2-5.5) - FOLLOW UP Follow Up: Pt counseled regarding expected course and signs and symptoms for which I believe an urgent re-evaluation would be necessary. Pt with good understanding and agreement to plan. Will have pt follow up with PCP for further care or return if pt worsens. Pt comfortable with plan. Time spent with patient was 45 minutes for education planning and assessment"
[2017-06-01 14:24] VITALS: BP 134/71
--- NOTE | 2017-06-10 05:48 | OPERATIVE REPORT ---
DATE OF SURGERY: 05/28/2017 00:00:00 PREOPERATIVE DIAGNOSIS: Right femoral neck fracture (Garden IV). POSTOPERATIVE DIAGNOSIS: Right femoral neck fracture (Garden IV). PROCEDURE: Right hip hemiarthroplasty. SURGEON: Wade Barragan MD ANESTHESIA PROVIDER: Cyn Rojas CRNA ANESTHESIA TECHNIQUE: Local plus MAC plus spinal. ESTIMATED BLOOD LOSS: 300 mL. COMPLICATIONS: None. FLUIDS: 1700 mL of Lactated Ringer's. URINE: 75 mL. IMPLANTS 1. Biomet RingLoc bipolar acetabular cup. 2. Modular head component 28 mm outer diameter x -3 mm neck length. 3. Taperloc primary femoral stem, porous coated, 11 x 142 mm, standard offset. 4. JuggerKnot soft anchor 2.9 mm for the greater trochanter repair. CONDITION AT END OF PROCEDURE: Stable. DISPOSITION: PACU, then Med/Surg. INDICATIONS: This is a 76-year-old female who had tripped and fallen onto her right side, sustaining a displaced Garden IV fracture of her right femoral neck. Options were discussed with the patient, including risks and complications. Questions were answered. No guarantees were made. The agreed- upon procedure was right hip hemiarthroplasty via an anterolateral approach. PROCEDURE IN DETAIL: After consent and identification, the patient was brought to the operating room and placed in a supine position on the pegboard on the operating table. After induction of a spinal anesthetic and appropriate monitoring, the patient was placed in a left lateral decubitus position on the silicone gel pad. Padding was placed underneath the left peroneal nerve and lower extremity. An axillary roll was placed in the left axilla. Padded pegs were then placed at the site of the pubic symphysis, left ischium, sacrum, and sternum. The right lower extremity was then prepped and draped free in the usual sterile hindquarter fashion for hip surgery. After an appropriate timeout was conducted, the right lower extremity was prepped and draped free and flexed to 45 degrees. A surgical marker was used to map out a longitudinal incision centered over the tip of the greater trochanter, extending 15 cm distal and 10 cm proximal to the tip of the greater trochanter. Skin and subcutaneous tissue were divided with a #10 blade scalpel. Electrocautery was then used to divide the subcutaneous fat down to the level of the iliotibial band. A small rent was made at the junction between the iliotibial band and then tensor fascia buck external fascia with the electrocautery. We then inserted a Heart scissors deep to the tensor fascia buck and the iliotibial band and used the Heart scissors to cut longitudinally along the tibial band and superiorly along the tensor fascia buck external fascia. Finger dissection was then used to divide the rest of the tensor fascia buck and the gluteus lesia muscle. We placed a Charnley retractor deep to the iliotibial band anteriorly and posteriorly. We then resected the trochanteric bursa. We divided the anterior one third of the gluteus medius muscle and the anterior portion of the vastus lateralis muscle subperiosteally off the greater trochanter and proximal lateral femur with the electrocautery in a digastric sleeve. This was reflected anteriorly and tagged with a #5 Ethibond suture for later reattachment. We then cleared out the acetabulum with a rongeur and a curette. The acetabular cartilage was deemed satisfactory for a hemiarthroplasty. With the leg in an externally rotated position, we then used a regional airline pilot reamer to find the medullary canal in the proximal femur. A [employer] cutter was used to make a lateralizing cut. We then sequentially broached the femur starting with a size #4 broach, broaching up to a size #11 broach, which gave an excellent rotational interference fit in the femoral canal. We left the broach in position and assembled a trial hemiarthroplasty femoral head and neck on the broach with a standard offset and standard neck length. We sized the acetabulum to a 47 mm diameter. Our trial gave good rotational stability and good Shuck test. We then dislocated the trial components and removed them from the hip. We assembled the bipolar head and standard neck length chrome-cobalt head on the back table. We then inserted the 11 x 142 mm porous coated stem into the femur and impacted it into position and noted good rotational stability. Our head component was then assembled to the trunnion and impacted into place. We then reduced the hip and again ranged the hip to flexion, extension, and internal and external rotation, noting good stability. Shuck test was again negative. Next we injected the hip with our combination analgesic containing Sensorcaine with epinephrine, Toradol, Duramorph, Naropin. A total of 60 mL was injected. Capsular repair was then effected with a running interlocked #5 Ethibond suture. Next we repaired the digastric anterior portion of the gluteus medius muscle and the anterior portion of the vastus lateralis muscle to the greater trochanter using a 2.9 mm JuggerKnot anchor with #2 FiberWire sutures. This gave good stability, and we oversewed this with a #2 FiberWire suture. We then repaired the iliotibial band and tensor fascia buck with a running interlocked # 5 Ethibond suture. The subcutaneous level was closed with interrupted 2-0 Vicryl sutures. A running 3-0 Monocryl suture was used to closed the dermis. We then injected the incision with 30 mL of 0.5% Marcaine with epinephrine. Our sterile island dressing of Mepilex silver dressing was then applied to the wound. On completion of the procedure, the patient was extubated and transferred to the recovery room in good condition, having tolerated the procedure well. JOB #: [id number] EXT JOB #:[id number] SHE
== END 2017-06-01 14:59 | DRG 469 ==
LOC: EDUNIT# → ED 20:45 → MS2 23:43
PROVIDERS: ADMIT Internal Medicine; ATTEND Nurse Practitioner
PROC: 0SRR01Z Replacement of Right Hip Joint, Femoral Surface with Metal Synthetic Substitute, Open Approach (ICD-10-PCS; principal; 2017-05-28 07:30)
DX: S72.011A Unspecified intracapsular fracture of right femur, initial encounter for closed fracture (principal); J96.21 Acute and chronic respiratory failure with hypoxia; N39.0 Urinary tract infection, site not specified; Y92.008 Other place in unspecified non-institutional (private) residence as the place of occurrence of the external cause; F10.288 Alcohol dependence with other alcohol-induced disorder; B96.20 Unspecified Escherichia coli [E. coli] as the cause of diseases classified elsewhere; R35.0 Frequency of micturition; R32 Unspecified urinary incontinence; F32.9 Major depressive disorder, single episode, unspecified; M19.90 Unspecified osteoarthritis, unspecified site; M79.7 Fibromyalgia; K70.10 Alcoholic hepatitis without ascites; F10.229 Alcohol dependence with intoxication, unspecified; Y90.3 Blood alcohol level of 60-79 mg/100 ml; K21.9 Gastro-esophageal reflux disease without esophagitis; J44.9 Chronic obstructive pulmonary disease, unspecified; W10.8XXA Fall (on) (from) other stairs and steps, initial encounter; E03.9 Hypothyroidism, unspecified; R53.82 Chronic fatigue, unspecified; G47.00 Insomnia, unspecified; K58.9 Irritable bowel syndrome, unspecified; E83.39 Other disorders of phosphorus metabolism; Z79.899 Other long term (current) drug therapy; Z91.81 History of falling; Y93.89 Activity, other specified; Y92.038 Other place in apartment as the place of occurrence of the external cause; Y99.8 Other external cause status; Z99.81 Dependence on supplemental oxygen; Z91.19 Patient's noncompliance with other medical treatment and regimen; Z87.891 Personal history of nicotine dependence
CPT/HCPCS: 36415; 71010; 71020; 71275; 76700; 80053; 80074; 80307; 80320; 81001; 81003; 82140; 82150; 82330; 82550; 82607; 82728; 82803; 82977; 83519; 83540; 83605; 83615; 83690; 83735; 83880; 84100; 84443; 84466; 84484; 85025; 85044; 85610; 85730; 86850; 86900; 86901; 87077; 87086; 93005; 93306; 94640; 96374; 96375; 99284; 99285

== ENCOUNTER 2017-06-16 16:40 | Outpatient (CLI) | payer OTHER, MEDICARE ==
[2017-06-16 23:22] LABS: CALCIUM 8.6 mg/dL (8.5-10.3); CREATININE 0.8 mg/dL (0.4-1.0); POTASSIUM 4.5 mmol/L (3.5-5.0)
[2017-06-16 23:27] LABS: BASOPHILS # (AUTO) 0.1 10^3/uL (0.0-0.1); BASOPHILS % (AUTO) 0.9 %; EOSINOPHILS # (AUTO) 0.4 10^3/uL (0.0-0.7); EOSINOPHILS % (AUTO) 5.9 %; HCT - HEMATOCRIT 32.4 % (37.0-47.0); HGB - HEMOGLOBIN 10.2 g/dL (12.0-16.0); LYMPHOCYTES # (AUTO) 1.2 10^3/uL (1.5-3.5); LYMPHOCYTES % (AUTO) 20.1 %; MEAN CORPUSCULAR HEMOGLOBIN 27.5 pg (27.0-31.0); MEAN CORPUSCULAR HGB CONC 31.5 g/dL (32.0-36.0); MEAN CORPUSCULAR VOLUME 87.3 fL (81.0-99.0); MEAN PLATELET VOLUME 8.1 fL (7.9-10.8); MONOCYTES # (AUTO) 0.6 10^3/uL (0.0-1.0); MONOCYTES % (AUTO) 9.3 %; NEUTROPHILS % (AUTO) 63.8 %; NUCLEATED RED BLOOD CELLS AUTO 0.1 /100WBC; RED BLOOD COUNT 3.71 10^6/uL (4.20-5.40); UNCORRECTED WHITE BLOOD COUNT 6.2 x10^3/uL; WHITE BLOOD COUNT 6.2 x10^3/uL (4.8-10.8)
== END 2017-06-16 16:41 | disposition home or self-care (01) ==
LOC: LAB.R 16:40
DX: E03.9 Hypothyroidism, unspecified (principal)
CPT/HCPCS: 80048; 85025

== ENCOUNTER 2017-06-24 08:00 | Outpatient (CLI) | payer MEDICARE, OTHER ==
[2017-06-24 23:19] LABS: BASOPHILS # (AUTO) 0.1 10^3/uL (0.0-0.1); EOSINOPHILS # (AUTO) 0.2 10^3/uL (0.0-0.7); EOSINOPHILS % (AUTO) 3.5 %; HCT - HEMATOCRIT 33.8 % (37.0-47.0); HGB - HEMOGLOBIN 10.8 g/dL (12.0-16.0); LYMPHOCYTES # (AUTO) 1.3 10^3/uL (1.5-3.5); LYMPHOCYTES % (AUTO) 20.1 %; MEAN CORPUSCULAR HGB CONC 31.9 g/dL (32.0-36.0); MEAN CORPUSCULAR VOLUME 84.8 fL (81.0-99.0); MEAN PLATELET VOLUME 8.6 fL (7.9-10.8); MONOCYTES # (AUTO) 0.7 10^3/uL (0.0-1.0); MONOCYTES % (AUTO) 11.3 %; NEUTROPHILS # (AUTO) 4.1 10^3/uL (1.5-6.6); NEUTROPHILS % (AUTO) 64.1 %; NUCLEATED RED BLOOD CELLS AUTO 0.1 /100WBC; RED BLOOD COUNT 3.99 10^6/uL (4.20-5.40); RED CELL DISTRIBUTION WIDTH 17.9 % (12.0-15.0); UNCORRECTED WHITE BLOOD COUNT 6.4 x10^3/uL; WHITE BLOOD COUNT 6.4 x10^3/uL (4.8-10.8)
[2017-06-24 23:29] LABS: ALBUMIN/GLOBULIN RATIO 1.3 (1.0-2.2); BILIRUBIN,TOTAL 0.4 mg/dL (0.2-1.0); BUN - BLOOD UREA NITROGEN 18 mg/dL (6-20); CARBON DIOXIDE - CO2 23 mmol/L (21-32); CHLORIDE 103 mmol/L (101-111); CREATININE 0.9 mg/dL (0.4-1.0); GFR - MDRD 61 (>89); GLUCOSE 118 mg/dL (70-100); POTASSIUM 4.1 mmol/L (3.5-5.0); SODIUM 137 mmol/L (135-145); TOTAL PROTEIN 6.8 g/dL (6.7-8.2)
== END 2017-06-24 08:01 | disposition home or self-care (01) ==
LOC: LAB.R 08:00
DX: Z47.1 Aftercare following joint replacement surgery (principal); J96.21 Acute and chronic respiratory failure with hypoxia; S72.001D Fracture of unspecified part of neck of right femur, subsequent encounter for closed fracture with routine healing
CPT/HCPCS: 80053; 83880; 85025

== ENCOUNTER 2017-06-25 17:21 | Outpatient (CLI) | payer MEDICARE, OTHER | END 2017-06-25 17:22 | disposition home or self-care (01) | LOC: LAB.R 17:21 | DX: J96.21 Acute and chronic respiratory failure with hypoxia (principal) | CPT/HCPCS: 83880 ==

== ENCOUNTER 2017-06-26 09:39 | Outpatient (CLI) | payer OTHER ==
[2017-06-26] MEDS ORDERED: ALBUTEROL NEB 2.5 MG/3 ML INH ONE (10:30)
== END 2017-06-26 09:40 | disposition home or self-care (01) ==
LOC: RT 09:39
PROVIDERS: ATTEND Internal Medicine
DX: R06.00 Dyspnea, unspecified (principal); I26.99 Other pulmonary embolism without acute cor pulmonale
CPT/HCPCS: 94060; 94640; J7613; 85379

== ENCOUNTER 2017-06-26 14:05 | Outpatient (CLI) | payer MEDICARE, OTHER | END 2017-06-26 14:06 | disposition home or self-care (01) | LOC: LAB.R 14:05 | DX: I26.99 Other pulmonary embolism without acute cor pulmonale (principal) | CPT/HCPCS: 85379 ==

== ENCOUNTER 2017-06-27 17:50 | Outpatient (CLI) | payer MEDICARE, OTHER | END 2017-06-27 17:51 | disposition critical access hospital (66) | LOC: EMS 17:50 | PROVIDERS: ATTEND Surgery | DX: R06.00 Dyspnea, unspecified (principal) | CPT/HCPCS: A0425; A0427 ==

== ENCOUNTER 2017-06-27 17:58 | Inpatient (IN) | payer MEDICARE, OTHER ==
--- NOTE | 2017-06-27 18:13 | ED Physician Documentation ---
History of Present Illness - Stated complaint Stated Complaint: ELEVATED D DIMER - Chief complaint Chief Complaint: General - History obtained from History obtained from: Patient, Family, EMS - History of Present Illness Timing: Today Pain level max: 0 Pain level now: 0 Improved by: oxygen Worsened by: nothing - Additonal information Additional information: Patient is a 76-year-old female who states she has not been feeling well for the past week or so. She states that she has been feeling "out of it". She is normally on 3 L of oxygen at carriage, has been increased to 6 L of oxygen today. Had pulmonary function testing performed yesterday as well as a d-dimer which was elevated and patient was sent here to rule out PE. Family states recently had pneumonia treated with azithromycin Review of Systems Ten Systems: 10 systems reviewed and negative Constitutional: denies: Fever, Chills Ears: denies: Ear pain Cardiac: denies: Chest pain / pressure Respiratory: reports: Cough, Wheezing Skin: denies: Rash Musculoskeletal: denies: Neck pain, Back pain Neurologic: denies: Headache PD PAST MEDICAL HISTORY - Past Medical History Past Medical History: Yes Cardiovascular: None Respiratory: COPD, Shortness of breath Endocrine/Autoimmune: HyPOthyroidism GI: Hiatal hernia, Colon polyps : Incontinence, Frequency HEENT: Other Psych: Depression Musculoskeletal: Osteoarthritis, Fibromyalgia, Fatigue Derm: None - Past Surgical History General: Colonoscopy, EGD Ortho: Spine surgery HEENT: Tonsil/Adenoidectomy - Present Medications Home Medications: Ambulatory Orders Medication Instructions Recorded Confirmed Omeprazole [Prilosec] 20 mg PO BID 04/01/13 05/27/17 Levothyroxine Sodium 137 mcg PO QDAC 05/27/17 06/27/17 Melatonin 5 mg PO QPM 05/27/17 05/27/17 diphenhydrAMINE [Benadryl] 25 mg PO DAILY PRN 05/27/17 05/27/17 Bisacodyl Supp [Dulcolax Supp] [address] Q12H PRN #0 supp 06/01/17 Cholecalciferol [Vitamin D3] 5,000 unit PO BID #30 capsule 06/01/17 Neutra-Phos [K-Phos Neutral] 250 mg PO TIDWM tablet 06/01/17 Polyethylene Glycol 3350 [Miralax] 17 gm PO DAILY packet 06/01/17 Saccharomyces Boulardii [Florastor] 250 mg PO DAILY #15 capsule 06/01/17 Senna [Senokot] 17.2 mg PO Q12H PRN #0 tablet 06/01/17 Venlafaxine ER [Effexor ER] 75 mg PO BID #10 capsule 06/01/17 Aspirin 325 mg PO DAILY 06/27/17 06/27/17 Dicyclomine HCl 06/27/17 Furosemide 20 mg PO DAILY 06/27/17 06/27/17 Ipratropium/Albuterol [Duoneb] 06/27/17 oxyCODONE [Roxicodone] 06/27/17 - Allergies Allergies/Adverse Reactions: Allergies Allergy/AdvReac Type Severity Reaction Status Date / Time Penicillins Allergy Unknown Unknown Verified 05/26/17 21:12 - Social History Does the pt smoke?: No Smoking Status: Never smoker Does the pt drink ETOH?: Yes Does the pt have substance abuse?: No - POLST Patient has POLST: No POLST Status: Full Code PD ED PE NORMAL - Vitals Vital signs reviewed: Yes - General General: Alert and oriented X 3, Other (elderly female) - HEENT HEENT: PERRL, Ears normal, Moist mucous membranes, Pharynx benign - Neck Neck: Supple, no meningeal sign - Cardiac Cardiac: RRR, Strong equal pulses - Respiratory Respiratory: No respiratory distress, Other (Very diminished breath sounds bilaterally) - Abdomen Abdomen: Soft, Non tender, Non distended - Back Back: No spinal TTP - Derm Derm: Warm and dry, No rash - Extremities Extremities: No calf tenderness / cord - Neuro Neuro: Alert and oriented X 3 - Psych Psych: Normal mood, Normal affect Results - Vitals Vitals: Vital Signs - 24 hr 06/27/17 06/27/17 06/27/17 18:06 18:16 18:31 Temperature 37.3 C Heart Rate 104 H 107 H Respiratory 28 H 22 Rate Blood Pressure 172/82 H O2 Saturation 92 79 L 06/27/17 06/27/17 06/27/17 19:12 19:26 21:43 Temperature Heart Rate 105 H 104 H 103 H Respiratory 20 24 20 Rate Blood Pressure 159/71 H 149/87 H O2 Saturation 91 L 90 L 06/27/17 22:42 Temperature Heart Rate 108 H Respiratory 20 Rate Blood Pressure 177/91 H O2 Saturation 92 Oxygen O2 Source Nasal cannula - EKG (time done) 1816 Rate: Rate (enter#) (104) Rhythm: Sinus tachycardia [place]: Normal Intervals: Normal CT QRS: Normal Ischemia: Q waves (V1-2), Non specific changes - Labs Labs: Laboratory Tests 06/27/17 06/27/17 18:58 18:58 WBC 2.7 L RBC 3.90 L Hgb 10.4 L Hct 33.0 L MCV 84.6 MCH 26.8 L MCHC 31.6 L RDW 18.0 H Plt Count 256 MPV 7.8 L Neut # 2.2 Lymph # 0.3 L [place] # 0.2 Eos # 0.0 Baso # 0.0 Absolute Nucleated RBC 0.01 Nucleated RBCs 0.2 Sodium 138 Potassium 3.7 Chloride 102 Carbon Dioxide 26 Anion Gap 10.0 BUN 18 Creatinine 1.0 Estimated GFR (MDRD) 54 L Glucose 150 H Calcium 9.1 Total Bilirubin 0.6 AST 22 ALT 10 Alkaline Phosphatase 84 Total Protein 7.0 Albumin 3.7 Globulin 3.3 Albumin/Globulin Ratio 1.1 Lipase 21 L - Rads (name of study) CT angio chest Radiology: Prelim report reviewed, EMP read contemporaneously, See rad report ( No evidence of pulmonary embolus. New right basilar consolidation. Stable emphysema) PD MEDICAL DECISION MAKING - ED course Complexity details: reviewed old records, reviewed results, re-evaluated patient , considered differential, d/w patient, d/w family ED course: Patient is a 76-year-old female who presents to the emergency department with increasing oxygen requirements and increasing coughing. She is found to have a right lower lobe pneumonia on CT scan. She did have her recent hip surgery approximately a month ago, therefore there was concern for pulmonary embolus. There is no pulmonary embolus on CT scan. As she has been in a [facility] facility and had a fairly recent hospitalization, will place on Levaquin. Also given breathing treatments and Solu-Medrol. Discussed the case with hospitalist who accepts. This document was made in part using voice recognition software. While efforts are made to proofread this document, sound alike and grammatical errors may occur. Departure - Departure Disposition: 66 [facility] DC/Xfer Clinical Impression: Hypoxia COPD (chronic obstructive pulmonary disease) Qualifiers: COPD type: unspecified COPD Qualified Code(s): J44.9 - Chronic obstructive pulmonary disease, unspecified Pneumonia Qualifiers: Pneumonia type: due to unspecified organism Laterality: right Lung location: lower lobe of lung Qualified Code(s): J18.1 - Lobar pneumonia, unspecified organism Condition: Stable
[2017-06-27] MEDS ORDERED: ALBUTEROL NEB 2.5 MG/3 ML INH STA (19:02)
[2017-06-27] MEDS ORDERED: methylPREDNISolone SUCCINATE 125 MG/2 ML VIAL IVP STA (19:02)
[2017-06-27] MEDS ORDERED: ALBUTEROL NEB 2.5 MG/3 ML INH ONE (19:13)
[2017-06-27 19:14] LABS: BASOPHILS % (AUTO) 0.2 %; EOSINOPHILS % (AUTO) 0.2 %; HGB - HEMOGLOBIN 10.4 g/dL (12.0-16.0); LYMPHOCYTES # (AUTO) 0.3 10^3/uL (1.5-3.5); LYMPHOCYTES % (AUTO) 12.4 %; MEAN CORPUSCULAR HEMOGLOBIN 26.8 pg (27.0-31.0); MEAN CORPUSCULAR HGB CONC 31.6 g/dL (32.0-36.0); MEAN CORPUSCULAR VOLUME 84.6 fL (81.0-99.0); MEAN PLATELET VOLUME 7.8 fL (7.9-10.8); MONOCYTES # (AUTO) 0.2 10^3/uL (0.0-1.0); MONOCYTES % (AUTO) 6.4 %; NEUTROPHILS # (AUTO) 2.2 10^3/uL (1.5-6.6); NEUTROPHILS % (AUTO) 80.8 %; NUCLEATED RED BLOOD CELLS AUTO 0.2 /100WBC; UNCORRECTED WHITE BLOOD COUNT 2.7 x10^3/uL; WHITE BLOOD COUNT 2.7 x10^3/uL (4.8-10.8)
[2017-06-27] MEDS ORDERED: methylPREDNISolone SUCCINATE 125 MG/2 ML VIAL IVP ONE (19:14)
[2017-06-27 19:26] LABS: ALBUMIN/GLOBULIN RATIO 1.1 (1.0-2.2); BILIRUBIN,TOTAL 0.6 mg/dL (0.2-1.0); CALCIUM 9.1 mg/dL (8.5-10.3); POTASSIUM 3.7 mmol/L (3.5-5.0)
[2017-06-27] MEDS ORDERED: IOPAMIDOL-300 100 ML VIAL IVP ONE (20:38)
--- NOTE | 2017-06-27 21:05 | CT Preliminary Report ---
Exam: CT Chest Angio (PE) IMPRESSION: No evidence of pulmonary embolus. New right basilar consolidation. Stable emphysema. [facility] SITE ID: [id number]
--- NOTE | 2017-06-27 21:07 | CT Report ---
EXAM: CT ANGIOGRAM CHEST EXAM DATE: 06/27/2017 08:42 PM. CLINICAL HISTORY: Dyspnea, elevated d-dimer. COMPARISON: 05/29/2017. TECHNIQUE: Routine helical imaging was performed through the chest in the pulmonary arterial phase. I V Contrast: 80 mL Isovue 300. Reconstructions: Coronal and sagittal 3-D MIP reconstructions.Sagittal and coronal. In accordance with CT protocol optimization, one or more of the following dose reduction techniques w ere utilized for this exam: automated exposure control, adjustment of mA and/or KV based on patient s ize, or use of iterative reconstructive technique. FINDINGS: Pulmonary Arteries: Diagnostic quality: Adequate through the segmental arteries. No evidence for acute or chronic pulmona ry emboli. RV/LV is within normal limits. There is no interventricular septal bowing. There is no reflux of cont rast material in the IVC. Lungs/Pleura: New right lower lobe infiltrate. No effusion or pneumothorax. Stable emphysema. Mediastinum: Stable prominence of the central pulmonary arteries. No adenopathy. Thoracic Aorta: Atherosclerotic calcifications. Upper Abdomen: Unremarkable. Other: None. IMPRESSION: No evidence of pulmonary embolus. New right basilar consolidation. Stable emphysema. [facility] Referring Provider Line: [phone] SITE ID: [id number]
[2017-06-27] MEDS ORDERED: IPRATROPIUM/ALBUTEROL 3 ML NEB INH PRN (23:05)
--- NOTE | 2017-06-27 23:20 | HISTORY & PHYSICAL EXAMINATION ---
Chief Complaint - Chief Complaint Chief Complaint: hypoxia with elevated DDimer History of Present Illness - Admitted From Admitted From:: ED - History Obtained From History obtained from: patient and daughter at bedside - History of Present Illness HPI Comment/Other: Patient is a 76 y/o female who was recently admitted to the hospital 3 weeks ago due to a right hip fracture from a fall. She presents today from a rehab facility where she has been receiving physical therapy. She has been chronically hypoxic but felt she was having increased dyspnea. She also has a ddimer test done which came back elevated and was advised by her PCP to come to the hospital for further evaluation. During exam, she appears to be resting in bed comfortably. She is normally supposed to be on 3L O2 N?C at home but had not been using it as prescribed. She was placed on 6L of oxygen to maintain her Oxygen level in the 90's. He therapy at rehab has been slowed by hypoxia/ dyspnea when she exerts herself She denies chest pain, abd pain, nausea vomiting , diarrhea or fever. She denies any other complains at the moment. In the ED, CT of the chest done to rule out PE showed right lower lobe infiltrates. She has been prescribed azithromycin 3 weeks ago for ?pneumonia. Review of Systems - Constitutional Constitutional: reports: Fatigue, Weakness. denies: Fever, Diaphoresis - Eyes Eyes: denies: Pain, Vision loss, Dipolpia - Ears, Nose & Throat Ears, Nose & Throat: denies: Tinnitus, Vertigo, Nasal pain, Sore throat - Cardiovascular Cariovascular: denies: Irregular heart rate, Palpitations, Chest pain, Edema, Lightheadedness, Syncope - Respiratory Respiratory: reports: SOB with exertion. denies: Cough, Sputum production, Wheezing - Gastrointestinal Gastrointestinal: denies: Abdominal pain, Abdominal distention, Diarrhea, Nausea , Vomiting - Genitourinary Genitourinary: denies: Dysuria, Frequency, Urgency - Musculoskeletal Musculoskeletal: denies: Muscle pain, Back pain, Joint swelling - Integumentary Integumentary: denies: Rash, Pruritis, Lesions - Neurological Neurological: denies: General weakness, Headache, Numbness - Psychiatric Psychiatric: denies: Depression, Anxiety, Suicidal, Delusions - Endocrine Endocrine: denies: Polyuria, Polydypsia - Hematologic/Lymphatic Hematologic/Lymphatic: denies: Bruising, Petechiae, Blood clots History - Past Medical History Cardiovascular: reports: None Respiratory: reports: COPD, Emphysema, Shortness of breath Endocrine/Autoimmune: reports: HyPOthyroidism GI: reports: GERD, Hiatal hernia, Colon polyps : reports: Incontinence, Frequency HEENT: reports: Other Psych: reports: Depression Musculoskeletal: reports: Osteoarthritis, Fibromyalgia, Fatigue Derm: reports: None MRSA Hx?: No - Past Surgical History General: reports: Colonoscopy, EGD Ortho: reports: Hip replacement, Spine surgery HEENT: reports: Tonsil/Adenoidectomy - Family & Social History Family History: Mother: Alive and Well, Father: (lung cancer) Living arrangement: At home Living Situation: Alone Social History Notes: Patient lives alone in an apartment in [place]. Her daughter lives nearby but works in [place]. [place]. She drinks daily and states she drinks about 1.5 L of Vodka in less than a week. She has 3 kids. She quit smoking in 1991 but smoked for about 30 years and smoked up to a pack per day. She denies any illict drug use. - Substance History Use: Uses substance without health or social issues: NONE Tobacco Details: Cigarettes, Other (Quit smoking in 1991. Averaged 1ppd for about 30 yrs) - POLST Patient has POLST: No POLST Status: DNR Meds/Allgy - Home Medications Home Medications: Ambulatory Orders Medication Instructions Recorded Confirmed Omeprazole [Prilosec] 20 mg PO BID 04/01/13 05/27/17 Levothyroxine Sodium 137 mcg PO QDAC 05/27/17 06/27/17 Melatonin 5 mg PO QPM 05/27/17 05/27/17 diphenhydrAMINE [Benadryl] 25 mg PO DAILY PRN 05/27/17 05/27/17 Bisacodyl Supp [Dulcolax Supp] 10 mg [place] Q12H PRN #0 supp 06/01/17 Cholecalciferol [Vitamin D3] 5,000 unit PO BID #30 capsule 06/01/17 Neutra-Phos [K-Phos Neutral] 250 mg PO TIDWM tablet 06/01/17 Polyethylene Glycol 3350 [Miralax] 17 gm PO DAILY packet 06/01/17 Saccharomyces Boulardii [Florastor] 250 mg PO DAILY #15 capsule 06/01/17 Senna [Senokot] 17.2 mg PO Q12H PRN #0 tablet 06/01/17 Venlafaxine ER [Effexor ER] 75 mg PO BID #10 capsule 06/01/17 Aspirin 325 mg PO DAILY 06/27/17 06/27/17 Dicyclomine HCl 06/27/17 Furosemide 20 mg PO DAILY 06/27/17 06/27/17 Ipratropium/Albuterol [Duoneb] 06/27/17 oxyCODONE [Roxicodone] 06/27/17 - Allergies Allergies/Adverse Reactions: Allergies Allergy/AdvReac Type Severity Reaction Status Date / Time Penicillins Allergy Unknown Unknown Verified 05/26/17 21:12 Exam - Vital Signs Reviewed Vital Signs: Yes Vital Signs: Vital Signs x48h Temp Pulse Resp BP Pulse Ox 06/27/17 22:42 108 H 20 177/91 H 92 06/27/17 21:43 103 H 20 149/87 H 90 L 06/27/17 19:26 104 H 24 159/71 H 91 L 06/27/17 19:12 105 H 20 06/27/17 18:31 107 H 22 79 L 06/27/17 18:16 92 06/27/17 18:06 37.3 C 104 H 28 H 172/82 H - Physical Exam General Appearance: positive: No acute distress, Alert Eyes Bilateral: positive: Normal inspection, PERRL, EOMI, Conjunctivae nml, No scleral icterus ENT: positive: ENT inspection nml, Pharynx nml Neck: positive: Nml inspection, No JVD Respiratory: positive: Chest non-tender. negative: No respiratory distress ( mild respiratory distress), Wheezes Cardiovascular: positive: Regular rate & rhythm. negative: No murmur, JVD present Abdomen: positive: Non-tender, Nml bowel sounds, No distention. negative: Tenderness Back: negative: CVA tenderness (R), CVA tenderness (L) Skin: positive: Color nml, No rash, Warm Extremities: positive: No pedal edema Conclusion/Plan - Problem List (1) Right lower lobe pneumonia Conclusion/Plan: Patient started on levaquin 750 mg IV daily Anticipate switching to po in a couple days to continue out patient for a total of 10 days Qualifiers: Pneumonia type: due to unspecified organism Qualified Code(s): J18.1 - Lobar pneumonia, unspecified organism (2) Acute on chronic respiratory failure with hypoxemia Conclusion/Plan: Likely multifactorial 2/2 pneumonia (acute) COPD (chronic) Patient had undergone PFT (06/26/17) awaiting official read for follow up with PCP and referral to [facility] Continue Oxygen via nasal canula for O2 Sat goal of 92 % or greater Duoneb q4hrs prn (3) Subcapital fracture of right femur Conclusion/Plan: s/p repair 3 weeks ago Was at rehab prior to presentation today PT asked to evaluate and treat (4) Hypothyroid Conclusion/Plan: Stable Continue synthroid (5) GERD (gastroesophageal reflux disease) Conclusion/Plan: Stable Continue PPI Qualifiers: Esophagitis presence: without esophagitis Qualified Code(s): K21.9 - Gastro -esophageal reflux disease without esophagitis - Lab Results Fish Bones: 06/27/17 18:58 06/27/17 18:58 Issues/Core Measures - Anticipated LOS Anticipated Stay Length: 2 or more midnights - DVT/VTE - Prophylaxis VTE/DVT Device ordered at admit?: Yes VTE/DVT Prophylaxis med ordered at admit?: Yes
[2017-06-28] MEDS: oxyCODONE 5 MG TABLET PO PRN ×2 (01:38→06:32)
[2017-06-28] MEDS ORDERED: BISACODYL 10 MG SUPP PR PRN (03:46)
[2017-06-28] MEDS ORDERED: diphenhydrAMINE 25 MG CAPSULE PO PRN (03:49)
[2017-06-28] MEDS ORDERED: SENNA 8.6 MG TABLET PO PRN (03:49)
[2017-06-28] MEDS: ACETAMINOPHEN 325 MG TABLET PO PRN ×2 (04:07→22:13)
[2017-06-28] MEDS: SODIUM CHLORIDE FLUSH 0.9% 10 ML SYRINGE IVP SCH ×3 (05:26→22:08)
[2017-06-28 06:24] LABS: BASOPHILS % (AUTO) 0.1 %; EOSINOPHILS % (AUTO) 0.1 %; LYMPHOCYTES # (AUTO) 0.3 10^3/uL (1.5-3.5); MEAN PLATELET VOLUME 7.9 fL (7.9-10.8); MONOCYTES # (AUTO) 0.1 10^3/uL (0.0-1.0); MONOCYTES % (AUTO) 5.1 %; NEUTROPHILS # (AUTO) 2.4 10^3/uL (1.5-6.6)
[2017-06-28 06:27] LABS: HCT - HEMATOCRIT 30.1 % (37.0-47.0); HGB - HEMOGLOBIN 9.7 g/dL (12.0-16.0); LYMPHOCYTES % (AUTO) 11.1 %; MEAN CORPUSCULAR HEMOGLOBIN 27.1 pg (27.0-31.0); MEAN CORPUSCULAR HGB CONC 32.1 g/dL (32.0-36.0); MEAN CORPUSCULAR VOLUME 84.4 fL (81.0-99.0); NEUTROPHILS % (AUTO) 83.6 %; RED BLOOD COUNT 3.57 10^6/uL (4.20-5.40)
[2017-06-28 06:30] LABS: CALCIUM 8.9 mg/dL (8.5-10.3); CREATININE 0.8 mg/dL (0.4-1.0); POTASSIUM 3.5 mmol/L (3.5-5.0)
[2017-06-28 06:32] LABS: UNCORRECTED WHITE BLOOD COUNT 2.9 x10^3/uL; WHITE BLOOD COUNT 2.9 x10^3/uL (4.8-10.8)
[2017-06-28] MEDS: ASPIRIN 325 MG TABLET PO SCH (08:37)
[2017-06-28] MEDS: NEUTRA-PHOS 250 MG TABLET PO SCH ×3 (08:37→16:00)
[2017-06-28] MEDS: LEVOTHYROXINE 25 MCG TABLET PO SCH (08:37)
[2017-06-28] MEDS: LEVOTHYROXINE 112 MCG TABLET PO SCH (08:37)
[2017-06-28] MEDS: ENOXAPARIN 40 MG/0.4 ML SYRINGE SUBQ SCH (08:38)
[2017-06-28] MEDS: VENLAFAXINE ER 75 MG CAPSULE PO SCH ×2 (08:38→20:34)
[2017-06-28] MEDS: PANTOPRAZOLE 40 MG TABLET PO SCH (08:38)
[2017-06-28] MEDS: FUROSEMIDE 20 MG TABLET PO SCH (08:38)
[2017-06-28] MEDS: CHOLECALCIFEROL 5,000 UNIT CAPSULE PO SCH ×2 (08:38→20:34)
[2017-06-28] MEDS: POLYETHYLENE GLYCOL 3350 17 GM PACKET PO SCH (08:39)
[2017-06-28] MEDS: METOPROLOL SUCCINATE 25 MG TABLET PO SCH (08:40)
[2017-06-28] MEDS ORDERED: POLYETHYLENE GLYCOL 3350 17 GM PACKET PO SCH (09:00)
--- NOTE | 2017-06-28 09:24 | PROVIDER PROGRESS NOTE ---
Subjective - Prog Note Date Prog Note Date: 06/28/17 Prog Note Time: 09:22 - Subjective Subjective: other than shortness of breath more than ususal, she denies fever, cough, phlegm change appetite is the same she wants me to make sure she is on the same med list that dr. Osborn uses, especially for pain meds and also wants liquid potassium no pills. Current Medications - Current Medications Current Medications: Active Medications Acetaminophen (Tylenol) 650 mg PO Q4HR PRN PRN Reason: Pain or Fever > 38C (100.4F) Last Admin: 06/28/17 04:07 Dose: 650 mg Albuterol/Ipratropium (Duoneb) 3 ml INH Q4HR PRN PRN Reason: Wheezing Last Admin: 06/28/17 04:14 Dose: 3 ml Aspirin (Milly) 325 mg PO DAILYWM [facility] Last Admin: 06/28/17 08:37 Dose: 325 mg Bisacodyl (Dulcolax Supp) 10 mg [place] Q12H PRN PRN Reason: Constipation Cholecalciferol (Vitamin D3) 5,000 unit PO BID [facility] Last Admin: 06/28/17 08:38 Dose: 5,000 unit Diphenhydramine HCl (Benadryl) 25 mg PO DAILY PRN PRN Reason: IBD Enoxaparin Sodium (Lovenox) 40 mg SUBQ DAILY [facility] Last Admin: 06/28/17 08:38 Dose: 40 mg Furosemide (Lasix) 20 mg PO DAILY [facility] Last Admin: 06/28/17 08:38 Dose: 20 mg Levofloxacin (Levaquin 750 Mg/150 Ml) 150 mls @ 100 mls/hr IV Q24H [facility] Levothyroxine Sodium (Synthroid) 112 mcg PO QDAC [facility] Last Admin: 06/28/17 08:37 Dose: 112 mcg Levothyroxine Sodium (Synthroid) 25 mcg PO QDAC [facility] Last Admin: 06/28/17 08:37 Dose: 25 mcg Metoprolol Succinate (Toprol Xl) 25 mg PO DAILY [facility] Last Admin: 06/28/17 08:40 Dose: 25 mg Oxycodone HCl (Roxicodone) 5 mg PO Q4HR PRN PRN Reason: PAIN Last Admin: 06/28/17 06:32 Dose: 5 mg Pantoprazole Sodium (Protonix) 40 mg PO QDAC [facility] Last Admin: 06/28/17 08:38 Dose: 40 mg Polyethylene Glycol (Miralax) 17 gm PO DAILY [facility] Last Admin: 06/28/17 08:39 Dose: Not Given Senna (Senokot) 17.2 mg PO Q12H PRN PRN Reason: Constipation Sodium Chloride (Normal Saline Flush 0.9%) 10 ml IVP PRN PRN PRN Reason: NEEDED PER PROVIDER ORDERS Sodium Chloride (Normal Saline Flush 0.9%) 10 ml IVP Q8HR [facility] Last Admin: 06/28/17 05:26 Dose: 10 ml Sodium Phosphate (K-Phos Neutral) 250 mg PO TIDWM [facility] Last Admin: 06/28/17 08:37 Dose: 250 mg Venlafaxine HCl (Effexor Er) 75 mg PO BID [facility] Last Admin: 06/28/17 08:38 Dose: 75 mg Omeprazole [Prilosec] 20 mg PO BID 04/01/13 Levothyroxine Sodium 137 mcg PO QDAC 05/27/17 Melatonin 5 mg PO QPM 05/27/17 diphenhydrAMINE [Benadryl] 25 mg PO DAILY PRN 05/27/17 Aspirin 325 mg PO DAILY 06/27/17 Dicyclomine HCl 06/27/17 Furosemide 20 mg PO DAILY 06/27/17 Ipratropium/Albuterol [Duoneb] 06/27/17 oxyCODONE [Roxicodone] 06/27/17 Objective - Vital Signs/Intake & Output Reviewed Vital Signs: Yes Vital Signs: Vital Signs x48h Temp Pulse Pulse Resp BP Pulse Ox 06/28/17 07:57 36.5 C 101 H 16 156/71 H 93 06/28/17 04:14 98 18 Intake & Output: Intake & Output 06/25/17 06/26/17 06/27/17 06/28/17 23:59 23:59 23:59 23:59 Intake Total 200 500 Balance 200 500 - Objective General Appearance: positive: No acute distress, Alert, Other (short statured, kyphotic elderly female with no teeth, appears quite content) Eyes Bilateral: positive: PERRL, EOMI ENT: positive: Pharynx nml. negative: Purulent nasal drainage, Pharyngeal erythema Neck: positive: No JVD, Lymphadenopathy (R) (shotty), Lymphadenopathy (L) ( shotty). negative: Stiff neck, Carotid bruit Respiratory: positive: Chest non-tender, No respiratory distress, Rhonchi. negative: Wheezes, Rales Cardiovascular: positive: Regular rate & rhythm. negative: Gallop/S4, Friction rub Abdomen: positive: Non-tender, No organomegaly, Nml bowel sounds, No distention Skin: positive: Warm (very very warm, almost like a fever but temp nml), Dry Extremities: negative: Full ROM (hip is still from surgery) Neurologic/Psychiatric: positive: Oriented x3, CN's nml (2-12), Motor nml - Lab Results Fish Bones: 06/28/17 05:53 06/28/17 05:53 Other Labs: Lab Results x24hrs 06/28/17 06/28/17 06/28/17 Range/Units 05:53 05:53 05:53 WBC 2.9 L (4.8-10.8) x10^3/uL RBC 3.57 L (4.20-5.40) 10^6/uL Hgb 9.7 L (12.0-16.0) g/dL Hct 30.1 L (37.0-47.0) % MCV 84.4 (81.0-99.0) fL MCH 27.1 (27.0-31.0) pg MCHC 32.1 (32.0-36.0) g/dL RDW 18.0 H (12.0-15.0) % Plt Count 222 (130-450) 10^3/uL MPV 7.9 (7.9-10.8) fL Neut # 2.4 (1.5-6.6) 10^3/uL Lymph # 0.3 L (1.5-3.5) 10^3/uL [place] # 0.1 (0.0-1.0) 10^3/uL Eos # 0.0 (0.0-0.7) 10^3/uL Baso # 0.0 (0.0-0.1) 10^3/uL Absolute Nucleated RBC 0.00 x10^3/uL Nucleated RBCs 0.0 /100WBC Sodium 138 (135-145) mmol/L Potassium 3.5 (3.5-5.0) mmol/L Chloride 103 (101-111) mmol/L Carbon Dioxide 25 (21-32) mmol/L Anion Gap 10.0 (6-13) BUN 19 (6-20) mg/dL Creatinine 0.8 (0.4-1.0) mg/dL Estimated GFR (MDRD) 70 L (>89) Glucose 142 H (70-100) mg/dL Calcium 8.9 (8.5-10.3) mg/dL Magnesium 2.0 (1.7-2.8) mg/dL Assessment/Plan - Problem List (1) Right lower lobe pneumonia Impression: Patient started on levaquin 750 mg IV daily Today Day #2/7 Blood cultures drawn and pending Anticipate switching to po tomorrow and to continue out patient for a total of 10 days at [facility] Qualifiers: Pneumonia type: due to unspecified organism Qualified Code(s): J18.1 - Lobar pneumonia, unspecified organism (2) Acute on chronic respiratory failure with hypoxemia Conclusion/Plan: Likely multifactorial 2/2 pneumonia (acute) COPD (chronic) Patient had undergone PFT (06/26/17) awaiting official read for follow up with PCP and referral to Adult Specialist Continue Oxygen via nasal canula for O2 Sat goal of 92 % or greater Duoneb q4hrs prn Steroids qh6 (3) Subcapital fracture of right femur Conclusion/Plan: s/p repair 3 weeks ago Was at rehab prior to presentation today PT asked to evaluate and treat Expect return to rehab (4) Hypothyroid Conclusion/Plan: Stable Continue synthroid (5) GERD (gastroesophageal reflux disease) Conclusion/Plan: Stable Continue PPI Qualifiers: Esophagitis presence: without esophagitis Qualified Code(s): K21.9 - Gastro -esophageal reflux disease without esophagitis (6) Medication Reconciliation Pharmacy has verified she is on oxycodone 5 mg po q8 not q4 She was asking for IV potassium but I will decline since she can take po and has no N/V Educated that she has presumed bacterial pneumonia not Viral and that tx is antiobiotics not antiviral
[2017-06-28] MEDS ORDERED: oxyCODONE 5 MG TABLET PO PRN (10:24)
[2017-06-28] MEDS: IPRATROPIUM/ALBUTEROL 3 ML NEB INH SCH ×3 (10:36→20:45)
[2017-06-28] MEDS: methylPREDNISolone SUCCINATE 125 MG/2 ML VIAL IVP SCH ×2 (14:46→22:08)
[2017-06-28] MEDS: SODIUM CHLORIDE FLUSH 0.9% 10 ML SYRINGE IVP PRN ×2 (20:33→22:08)
[2017-06-29 06:15] LABS: BASOPHILS % (AUTO) 0.1 %; HCT - HEMATOCRIT 30.6 % (37.0-47.0); HGB - HEMOGLOBIN 9.6 g/dL (12.0-16.0); LYMPHOCYTES # (AUTO) 0.3 10^3/uL (1.5-3.5); LYMPHOCYTES % (AUTO) 9.1 %; MEAN CORPUSCULAR HEMOGLOBIN 26.6 pg (27.0-31.0); MEAN CORPUSCULAR HGB CONC 31.5 g/dL (32.0-36.0); MEAN CORPUSCULAR VOLUME 84.5 fL (81.0-99.0); MEAN PLATELET VOLUME 8.1 fL (7.9-10.8); MONOCYTES # (AUTO) 0.2 10^3/uL (0.0-1.0); MONOCYTES % (AUTO) 4.1 %; NEUTROPHILS # (AUTO) 3.2 10^3/uL (1.5-6.6); NEUTROPHILS % (AUTO) 86.7 %; NUCLEATED RED BLOOD CELLS AUTO 0.3 /100WBC; RED BLOOD COUNT 3.62 10^6/uL (4.20-5.40); RED CELL DISTRIBUTION WIDTH 17.4 % (12.0-15.0); UNCORRECTED WHITE BLOOD COUNT 3.7 x10^3/uL; WHITE BLOOD COUNT 3.7 x10^3/uL (4.8-10.8)
[2017-06-29] MEDS: SODIUM CHLORIDE FLUSH 0.9% 10 ML SYRINGE IVP SCH (06:16)
[2017-06-29] MEDS: methylPREDNISolone SUCCINATE 125 MG/2 ML VIAL IVP SCH (06:16)
[2017-06-29] MEDS: LEVOTHYROXINE 25 MCG TABLET PO SCH (06:16)
[2017-06-29] MEDS: PANTOPRAZOLE 40 MG TABLET PO SCH (06:16)
[2017-06-29] MEDS: LEVOTHYROXINE 112 MCG TABLET PO SCH (06:16)
[2017-06-29 06:17] LABS: CALCIUM 8.7 mg/dL (8.5-10.3); CREATININE 0.8 mg/dL (0.4-1.0); POTASSIUM 3.4 mmol/L (3.5-5.0)
[2017-06-29] MEDS: IPRATROPIUM/ALBUTEROL 3 ML NEB INH SCH ×2 (07:02→13:05)
[2017-06-29 08:05] VITALS: BP 143/83
[2017-06-29] MEDS: ENOXAPARIN 40 MG/0.4 ML SYRINGE SUBQ SCH (09:13)
[2017-06-29] MEDS: VENLAFAXINE ER 75 MG CAPSULE PO SCH (09:13)
[2017-06-29] MEDS: NEUTRA-PHOS 250 MG TABLET PO SCH (09:13)
[2017-06-29] MEDS: METOPROLOL SUCCINATE 25 MG TABLET PO SCH (09:13)
[2017-06-29] MEDS: ASPIRIN 325 MG TABLET PO SCH (09:13)
[2017-06-29] MEDS: CHOLECALCIFEROL 5,000 UNIT CAPSULE PO SCH (09:13)
[2017-06-29] MEDS: FUROSEMIDE 20 MG TABLET PO SCH (09:13)
[2017-06-29] MEDS: POLYETHYLENE GLYCOL 3350 17 GM PACKET PO SCH (09:14)
--- NOTE | 2017-06-29 18:28 | DISCHARGE SUMMARY ---
DATE OF ADMISSION: 06/27/2017 DATE OF DISCHARGE: 06/29/2017 DISCHARGE DIAGNOSES: 1. Acute on chronic respiratory failure with hypoxia. 2. Right lower lobe pneumonia. 3. Chronic obstructive pulmonary disease. 4. History of femur fracture 3 weeks ago. 5. Hypothyroidism, overtreated, with low TSH. 6. Gastroesophageal reflux disease. 7. History of alcohol abuse. DISCHARGE MEDICATIONS: 1. Tylenol 650 mg p.o. q.4h. hours p.r.n. pain. 2. DuoNeb q.6h, not p.r.n.. 3. Aspirin 325 mg p.o. daily. 4. Vitamin D 5000 units b.i.d. daily. 5. Benadryl 25 mg p.o. daily p.r.n.. 6. Lasix 20 mg daily. 7. Potassium 20 mEq daily. 8. Synthroid is 137 mcg daily. 9. Depo-Medrol pack to be used as directed. 10. Toprol-XL 25 mg daily. 11. Melatonin 5 mg at night. 12. Prilosec 20 mg b.i.d.. 13. Oxycodone 5 mg p.o. q.8h. 14. Venlafaxine extended release 75 mg p.o. b.i.d.. 15. Levaquin 500 mg p.o. daily for 4 more doses. HOSPITAL COURSE: She is a 76-year-old white female who has a history of alcohol abuse. She had been a dmitted 05/27/2017 after falling and having a right subcapital femoral neck fracture. She had a long history of alcohol abuse. She drank about 1.5 liters of vodka a week. During that stay she did not have severe delirium tremens. She had a surgical repair of her femur fra cture. She was sent to [facility] for rehabilitation. While at [facility] she has done well. Her daughter a ccompanies her and states that mom has done really well over there. Gradually increase her endurance. Daughter is really happy that mom has not been drinking any alcohol. Daughter is also very concerned about mom developing opioid abuse and she has had Dr. Osborn, in the outpatient setting, reduce o xycodone from q.4h to q.8h. p.r.n. The patient was doing well with rehabilitation and is on home O2 for emphysema, but while at [facility] developed severe shortness of breath that was more severe than usual. She had no antecedent fever, co ugh, chills, chest congestion or aspiration that was witnessed. She was brought to the emergency room with this, and was an alert, oriented, elderly female, on 6 liters of oxygen to maintain O2 saturati ons at 90%. CT of the chest was done to rule out pulmonary embolus, and what she was found to have wa s right lower lobe infiltrate. As such, she was admitted for pneumonia. Noted during her ER visit was a low white cell count of 2.7. MCV is 84. Hemoglobin was stable at 10.4. For her hospital course she was felt to have acute on chronic respiratory failure with hypoxia from t he right lower lobe pneumonia superimposed on COPD. She was treated with Levaquin IV, steroids, and D uoNeb. The diagnosis of COPD is new for her, even though it was noted on CT or her chest x-ray a few years ago, it was never a diagnosis she carried in her mind with regards to being sick with it. She a cknowledged that she was a severe tobacco abuser. So she has never been educated on COPD, never had r ehab for COPD. She has only been treated with at home oxygen, never quite understanding what the prob bailey was. As such, I spent some time educating the daughter, educating the patient. Daughter is very i nterested in getting pulmonary consult. I told her that the sales technician at [facility] may be able to take an appointment without a referral so she may be calling them. She is also to ask Dr. Osborn and Celine of [facility] to please make a referral for a sales technician. Her femur fracture history remained stable. She worked with physical therapy here and was able to sta nd, walk with a walker within the room. Main limitation was shortness of breath, not her femur. Of no te, TSH was checked and it is over suppressed at 0.08 and I am recommending that Dr. Osborn reduce the dose from 137 to possibly going to 125, if not 112. Recheck the TSH after 4-6 weeks. Gastroesoph ageal reflux disease is present in this opal elderly woman and controlled with proton pump inhibito rs. She occasionally uses Tums. Her history of alcohol abuse is noted, but no problems with withdrawa l, macrocytosis, tremulousness, etc., was present during this stay. The daughter hopes that with 3-4 weeks of sobriety under her belt, that she will not return to drinking when she returns to independen t living. Hopefully, her pulmonary care consult may recommend pulmonary rehabilitation. She is transferred in stable condition back to [facility] to complete her therapy for the hip . He had a temperature of 37.1, pulse of 90, blood pressure 143/83, respirations 20, and 4 liters thang al cannula saturates her at 96%. I am discharging her with orders to maintain her O2 saturation above 90, but below 92% because of her COPD. She may need 3 liters to 2 liters for that. She is a kyphotic elderly woman with partially edentulous. High anxiety level, very careful about her medications, and we did download the patient information about Levaquin and DuoNeb. She has diminished breath sounds diffusely, with prolonged exhalation, but no outright wheezing, no increased respiratory effort. PMI is normally placed with a regular rate and rhythm. The abdomen is soft, nontender. Extremities are wi thout edema or clubbing. She does have some rubor of her hands and feet. She is able to scoot her but t to the edge of the chair, and using the arms the chair push herself upward and stand. She then is a ble to grab the walker easily and slowly walk within the room with standby assist. She does not desat urate, she does not gasp for air. He was eating 75-100% of her meals. Greater than 30 minutes was spent coordinating discharge. JOB #: [id number] EXT JOB #:[id number]
== END 2017-06-29 13:20 | DRG 189 ==
LOC: EDUNIT# → SUPCPDRO 17:58 → ED 17:58 → MS2 22:42
PROVIDERS: ADMIT Internal Medicine; ATTEND Specialist
DX: R09.02 Hypoxemia (principal); J96.21 Acute and chronic respiratory failure with hypoxia; J18.1 Lobar pneumonia, unspecified organism; J44.0 Chronic obstructive pulmonary disease with (acute) lower respiratory infection; E03.9 Hypothyroidism, unspecified; R32 Unspecified urinary incontinence; R35.0 Frequency of micturition; K21.9 Gastro-esophageal reflux disease without esophagitis; M19.90 Unspecified osteoarthritis, unspecified site; M79.7 Fibromyalgia; Z79.891 Long term (current) use of opiate analgesic; Z79.82 Long term (current) use of aspirin; Z79.899 Other long term (current) drug therapy; Z99.81 Dependence on supplemental oxygen; Z87.891 Personal history of nicotine dependence; Z87.898 Personal history of other specified conditions; S72.011D Unspecified intracapsular fracture of right femur, subsequent encounter for closed fracture with routine healing; F32.9 Major depressive disorder, single episode, unspecified; Z79.51 Long term (current) use of inhaled steroids
CPT/HCPCS: 36415; 71275; 80048; 80053; 83690; 83735; 84443; 85025; 87040; 93005; 94640; 96365; 96374; 99284; 99285

== ENCOUNTER 2017-11-04 08:00 | Outpatient (CLI) | payer MEDICARE, OTHER ==
[2017-11-04 19:53] LABS: CALCIUM 8.3 mg/dL (8.5-10.3); CREATININE 1.1 mg/dL (0.4-1.0); PHOSPHORUS 4.9 mg/dL (2.5-4.6)
== END 2017-11-04 08:01 | disposition home or self-care (01) ==
LOC: LAB.R 08:00
DX: J96.21 Acute and chronic respiratory failure with hypoxia (principal)
CPT/HCPCS: 80048; 84100

== ENCOUNTER 2017-11-17 08:00 | Outpatient (CLI) | payer MEDICARE, OTHER ==
[2017-11-17 12:24] LABS: BASOPHILS # (AUTO) 0.1 10^3/uL (0.0-0.1); BASOPHILS % (AUTO) 2.2 %; EOSINOPHILS # (AUTO) 0.4 10^3/uL (0.0-0.7); EOSINOPHILS % (AUTO) 5.2 %; HGB - HEMOGLOBIN 10.9 g/dL (12.0-16.0); LYMPHOCYTES # (AUTO) 1.3 10^3/uL (1.5-3.5); LYMPHOCYTES % (AUTO) 18.9 %; MEAN CORPUSCULAR HEMOGLOBIN 23.4 pg (27.0-31.0); MEAN CORPUSCULAR HGB CONC 29.6 g/dL (32.0-36.0); MEAN CORPUSCULAR VOLUME 78.9 fL (81.0-99.0); MEAN PLATELET VOLUME 8.3 fL (7.9-10.8); MONOCYTES # (AUTO) 0.6 10^3/uL (0.0-1.0); MONOCYTES % (AUTO) 8.9 %; NEUTROPHILS # (AUTO) 4.4 10^3/uL (1.5-6.6); NEUTROPHILS % (AUTO) 64.8 %; PLT - PLATELET COUNT 235 10^3/uL (130-450); RED BLOOD COUNT 4.67 10^6/uL (4.20-5.40); RED CELL DISTRIBUTION WIDTH 20.7 % (12.0-15.0); WHITE BLOOD COUNT 6.7 x10^3/uL (4.8-10.8)
== END 2017-11-17 08:01 | disposition home or self-care (01) ==
LOC: LAB.R 08:00
DX: D64.9 Anemia, unspecified (principal); E03.9 Hypothyroidism, unspecified
CPT/HCPCS: 82728; 84443; 85025

== ENCOUNTER 2017-11-18 16:50 | Outpatient (CLI) | payer MEDICARE, OTHER ==
[2017-11-18 18:59] LABS: THYROID STIMULATING HORMONE < 0.08 uIU/mL (0.34-5.60)
== END 2017-11-18 16:51 | disposition home or self-care (01) ==
LOC: LAB.R 16:50
DX: D64.9 Anemia, unspecified (principal); E03.9 Hypothyroidism, unspecified
CPT/HCPCS: 82728; 84443

== ENCOUNTER 2017-11-19 08:00 | Outpatient (CLI) | payer MEDICARE, OTHER ==
[2017-11-20 01:52] LABS: CREATININE 1.1 mg/dL (0.4-1.0); PHOSPHORUS 4.9 mg/dL (2.5-4.6)
== END 2017-11-19 23:59 | disposition home or self-care (01) ==
LOC: LAB.R 08:00
DX: J44.9 Chronic obstructive pulmonary disease, unspecified (principal)
CPT/HCPCS: 80048; 84100

== ENCOUNTER 2019-02-22 12:04 | Outpatient (CLI) | payer MEDICARE, OTHER, MEDICAID ==
[2019-02-22 12:53] LABS: ALBUMIN 4.3 g/dL (3.2-5.5); ALBUMIN/GLOBULIN RATIO 1.4 (1.0-2.2); ALKALINE PHOSPHATASE 62 IU/L (42-121); ALT ALANINE AMINOTRANSFERASE 12 IU/L (10-60); AST ASPARTATE AMINOTRANSFERASE 23 IU/L (10-42); BILIRUBIN,TOTAL 0.6 mg/dL (0.2-1.0); BUN - BLOOD UREA NITROGEN 20 mg/dL (6-20); CALCIUM 9.2 mg/dL (8.5-10.3); CARBON DIOXIDE - CO2 23 mmol/L (21-32); CHLORIDE 97 mmol/L (101-111); CHOL/HDL RATIO 3.1 (<4.4); CHOLESTEROL 264 mg/dL; CREATININE 1.1 mg/dL (0.4-1.0); GFR - MDRD 48 (>89); GLUCOSE 90 mg/dL (70-100); HDL CHOLESTEROL 85 mg/dL; LDL CHOLESTEROL,CALCULATED 148 mg/dL; LDL/HDL RATIO 1.7 (<4.4); SODIUM 132 mmol/L (135-145); TOTAL PROTEIN 7.3 g/dL (6.7-8.2); VLDL CHOLESTEROL 31 mg/dL
[2019-02-22 13:10] LABS: BASOPHILS # (AUTO) 0.1 10^3/uL (0.0-0.1); BASOPHILS % (AUTO) 0.8 %; EOSINOPHILS # (AUTO) 0.1 10^3/uL (0.0-0.7); EOSINOPHILS % (AUTO) 1.9 %; LYMPHOCYTES # (AUTO) 1.2 10^3/uL (1.5-3.5); LYMPHOCYTES % (AUTO) 20.3 %; MEAN CORPUSCULAR HEMOGLOBIN 25.7 pg (27.0-31.0); MEAN CORPUSCULAR HGB CONC 31.2 g/dL (32.0-36.0); MEAN CORPUSCULAR VOLUME 82.5 fL (81.0-99.0); MEAN PLATELET VOLUME 7.8 fL (7.9-10.8); MONOCYTES # (AUTO) 0.7 10^3/uL (0.0-1.0); PLT - PLATELET COUNT 265 10^3/uL (130-450); RED BLOOD COUNT 4.67 10^6/uL (4.20-5.40); RED CELL DISTRIBUTION WIDTH 18.1 % (12.0-15.0); WHITE BLOOD COUNT 6.1 x10^3/uL (4.8-10.8)
[2019-02-22 13:53] LABS: THYROID STIMULATING HORMONE 2.35 uIU/mL (0.34-5.60)
== END 2019-02-22 12:05 | disposition home or self-care (01) ==
LOC: LAB 12:04
PROVIDERS: ATTEND Internal Medicine
DX: E78.5 Hyperlipidemia, unspecified (principal); M81.0 Age-related osteoporosis without current pathological fracture; E03.9 Hypothyroidism, unspecified; N18.3 Chronic kidney disease, stage 3 (moderate); D64.9 Anemia, unspecified
CPT/HCPCS: 36415; 80053; 80061; 82306; 82607; 83721; 84443; 85025

== ENCOUNTER 2020-09-14 15:23 | Outpatient (CLI) | payer MEDICARE, OTHER, MEDICAID | END 2020-09-14 15:24 | disposition critical access hospital (66) | LOC: EMS 15:23 | PROVIDERS: ATTEND Surgery | DX: R06.02 Shortness of breath (principal); Z99.81 Dependence on supplemental oxygen | CPT/HCPCS: A0425; A0429 ==

== ENCOUNTER 2020-09-14 15:39 | Emergency (ER) | payer MEDICARE, OTHER, MEDICAID ==
--- NOTE | 2020-09-14 15:59 | ED Physician Documentation ---
PD HPI DYSPNEA - History obtained from History obtained from: Patient (her concentrator ran out after the power went out and her backup battery is not charged. She is feeling short of breath. No cough nor wheezing. Sparks okay earlier today (at baseline).), EMS - History of Present Illness Timing - onset: Today (after the power went out and her battery on portable concentrator ran out.) Timing - onset during: Rest Timing - details: Gradual onset, Still present (not feeling worse than usual, just dependent on oxygen.) Inciting event(s): Other (power out and her oxygen concentrator battery is run out. It will run for 4 hours when charged (has 2 of them, so would not be enough for overnight).) Associated symptoms: Wheezing. No: Fever, Cough, Bilateral edema Similar symptoms before: Diagnosis (Emphysema.) Recently seen: Not recently seen Review of Systems Constitutional: denies: Fever Nose: denies: Rhinorrhea / runny nose, Congestion Throat: denies: Sore throat Respiratory: reports: Dyspnea, Wheezing (chronically). denies: Cough GI: denies: Nausea, Vomiting, Diarrhea Skin: denies: Rash Musculoskeletal: denies: Extremity swelling Neurologic: reports: Generalized weakness. denies: Near syncope PD PAST MEDICAL HISTORY - Past Medical History Cardiovascular: None Respiratory: COPD, Emphysema, Shortness of breath Endocrine/Autoimmune: HyPOthyroidism GI: GERD, Hiatal hernia, Colon polyps : Incontinence, Frequency HEENT: Other Psych: Depression Musculoskeletal: Osteoarthritis, Fibromyalgia, Fatigue Derm: None - Past Surgical History General: Colonoscopy, EGD Ortho: Hip replacement, Spine surgery HEENT: Tonsil/Adenoidectomy - Present Medications Home Medications: Ambulatory Orders Medication Instructions Recorded Confirmed Omeprazole [Prilosec] 20 mg PO BIDAC PRN 04/01/13 02/05/18 Levothyroxine Sodium 137 mcg PO QDAC 05/27/17 02/05/18 Melatonin 10 mg PO QPM 05/27/17 02/05/18 diphenhydrAMINE [Benadryl] 25 mg PO DAILY PRN 05/27/17 02/05/18 Cholecalciferol [Vitamin D3] 5,000 unit PO BID #30 capsule 06/01/17 06/28/17 Venlafaxine ER [Effexor ER] 75 mg PO BID #10 capsule 06/01/17 02/05/18 Aspirin 325 mg PO DAILY 06/27/17 02/05/18 Dicyclomine HCl 10 mg PO BID 06/27/17 02/05/18 Ipratropium/Albuterol [Duoneb] 3 ml INH Q6H 06/27/17 02/05/18 Acetaminophen [Tylenol Extra 500 mg PO BID 02/05/18 02/05/18 Strength] Cyanocobalamin (Vitamin B-12) 1,000 mcg PO 02/05/18 [Vitamin B-12] Ibuprofen 200 mg PO BID 02/05/18 02/05/18 Loperamide [Imodium] 2 mg PO QID PRN 02/05/18 02/05/18 Multivitamin [Multiple Vitamins] 1 each PO DAILY 02/05/18 02/05/18 Oxygen 1 l ORION DAILY #1 09/15/20 - Allergies Allergies/Adverse Reactions: Allergies Allergy/AdvReac Type Severity Reaction Status Date / Time Penicillins Allergy Unknown Unknown Verified 05/26/17 21:12 - Social History Does the pt smoke?: No Smoking Status: Former smoker Does the pt drink ETOH?: Yes Does the pt have substance abuse?: No - Immunizations Immunizations are current?: Yes - POLST Patient has POLST: No POLST Status: DNR PD ED PE NORMAL - Vitals Vital signs reviewed: Yes (sats 88-92% on 3 lpm NC. Improved after neb. ) - General General: Alert and oriented X 3, No acute distress (but is a bit anxious), Well developed/nourished - HEENT HEENT: Pharynx benign - Neck Neck: Supple, no meningeal sign, No adenopathy, No JVD - Cardiac Cardiac: RRR, No murmur - Respiratory Respiratory: Clear bilaterally (with some decreased exp volume, but not overt wheezing per se. ) - Abdomen Abdomen: Soft, Non tender - Derm Derm: Normal color, Warm and dry - Extremities Extremities: No calf tenderness / cord Results - Vitals Vitals: Oxygen O2 Source [Without Activity] Nasal cannula O2 Source Nasal cannula PD MEDICAL DECISION MAKING - ED course Complexity details: considered differential (needs oxygen and having issues with her portable concentrator and battery charging with th epower outage. ), d/w patient Departure - Departure Disposition: 01 Home, Self Care Clinical Impression: Supplemental oxygen dependent Dyspnea Qualifiers: Dyspnea type: shortness of breath Qualified Code(s): R06.02 - Shortness of breath COPD (chronic obstructive pulmonary disease) Qualifiers: COPD type: unspecified COPD Qualified Code(s): J44.9 - Chronic obstructive pulmonary disease, unspecified Condition: Stable Record reviewed to determine appropriate education?: Yes Instructions: COPD Dc Comments: Continue your usual oxygen and inhalers and medications. Discharge Date/Time: 09/14/20 17:37
[2020-09-14] MEDS ORDERED: ALBUTEROL NEB 2.5 MG/3 ML INH ONE (16:14)
[2020-09-14] MEDS ORDERED: IPRATROPIUM/ALBUTEROL 3 ML NEB INH ONE (16:15)
== END 2020-09-14 17:37 | disposition home or self-care (01) ==
LOC: ED 15:39
DX: J43.9 Emphysema, unspecified (principal); Z99.81 Dependence on supplemental oxygen; Z87.891 Personal history of nicotine dependence
CPT/HCPCS: 94640; 99283

== ENCOUNTER 2020-11-16 12:30 | Outpatient (CLI) | payer MEDICARE, OTHER, MEDICAID | END 2020-11-16 12:31 | disposition EMS.NT | LOC: EMS 12:30 | PROVIDERS: ATTEND Surgery | DX: R06.02 Shortness of breath (principal) ==

== ENCOUNTER 2020-11-17 20:32 | Outpatient (CLI) | payer MEDICARE, OTHER, MEDICAID | END 2020-11-17 20:33 | disposition EMS.NT | LOC: EMS 20:32 | PROVIDERS: ATTEND Surgery | DX: R69 Illness, unspecified (principal) ==

== ENCOUNTER 2021-02-06 11:25 | Outpatient (CLI) | payer MEDICARE, OTHER, MEDICAID | END 2021-02-06 11:26 | disposition E | LOC: EMS 11:25 ==